=== PATIENT | male | born 1985 | race Two or more races ===

== ENCOUNTER 2017-10-14 13:18 | Inpatient (IN) | payer OTHER ==
--- NOTE | 2017-10-14 14:04 | PDOC ---
History of Present Illness - General Chief Complaint: Pain, Acute Stated Complaint: PAIN/ CHEST, ABD Time Seen by Provider: 10/14/17 14:04 History Source: Patient, Nail Kegger Used - History of Present Illness Initial Comments: 10/14/17 14:36 32 year old male with PMH etoh abuse (15 years) and asthma presents to ED complaining of upper abdominal pain since yesterday as well as vomiting x3 days. His pain is currently an 8/10, intermittent, alleviated by resting still, aggravated by food. He states his pain is associated with nausea, vomiting 15- 20 times, fever, chills, sweats, black stool, dysuria, hematuria. He denies constipation, diarrhea. He states he has been drinking 15 small bottle of vodka a day, for 15 days, with his last drink being 3 days ago. 10/14/17 15:34 Pt reassessed, after fluid resuscitation pt is no longer tachycardic. Past History - Past Medical History Allergies/Adverse Reactions: Allergies Allergy/AdvReac Type Severity Reaction Status Date / Time No Known Allergies Allergy Verified 10/14/17 13:27 Home Medications: Ambulatory Orders Vit No.129/Iron/Folic [ One Daily Tablet] 1 each PO DAILY #30 tablet 10/15/17 - Suicide/Smoking/Psychosocial Hx Smoking History: Never smoked Have you smoked in the past 12 months: No Information on smoking cessation initiated: No Hx Alcohol Use: No Drug/Substance Use Hx: No Review of Systems - Review of Systems Able to Perform ROS?: Yes Comments:: 10/14/17 14:39 ROS performed with patient via director of nuclear medicine. General: admits to fever, chills, night sweats. denies generalized weakness. HEENT: denies sore throat, rhinorrhea, ear pain. Heart: denies chest pain, palpitations, syncope, lower extremity swelling. Respiratory: denies shortness of breath, cough, sputum production, hematemesis. Abdomen: admits to abdominal pain, nausea, vomiting, dark tarry stool. denies diarrhea, constipation. : admits to dysuria and hematuria. denies urinary frequency. Musculoskeletal: denies joint pain, muscle pain, joint swelling. Neurological: denies headache, dizziness, numbness, tingling. Skin: denies rash, laceration, abrasion. *Physical Exam - Vital Signs Last Vital Signs Temp Pulse Resp BP Pulse Ox 97.5 F L 125 H 16 142/65 100 10/14/17 13:20 10/14/17 13:20 10/14/17 13:20 10/14/17 13:20 10/14/17 13:20 - Physical Exam Comments: 10/14/17 15:25 Appearance: appears in pain. HEENT: head is normocephalic, atraumatic. EOMI. PERRLA. Neck: supple without lymphadenopathy Heart: tachycardic. no murmurs, rubs or gallops. Lungs: clear to auscultation bilaterally. no crackles, rhonchi or wheezing. no stridor. Abdomen: soft. severe LUQ and RUQ pain upon palpation. mild rebound and guarding. normal bowel sounds. CVA tenderness negative. Extremities: Peripheral pulses intact. No lower extremity edema. Neurological: tremor to hands present. Alert. Oriented x3. CN 2-12 grossly intact. Moves all four extremities. Heart Score/ECG Review - ECG Impressions Comment:: 10/14/17 15:27 Rate 122. regular rhythm. right axis deviation. no acute ST changes. ED Treatment Course - LABORATORY CBC & Chemistry Diagram: 10/15/17 05:30 10/15/17 05:30 Medical Decision Making - Medical Decision Making 10/14/17 15:29 32 year old male who drinks vodka every day (15 small bottles a day) presents to ED with upper abdominal pain, nausea, vomiting, dark tarry stool. Severe abdominal tenderness. Slight tremor. Initial Vital Signs Temp Pulse Resp BP Pulse Ox 97.5 F L 125 H 16 142/65 100 10/14/17 13:20 10/14/17 13:20 10/14/17 13:20 10/14/17 13:20 10/14/17 13:20 Blood pressure stable. Afebrile. Tachycardic. Ativan given for potential ETOH withdrawal. Protonix given for potential GI bleed. Morphine given for pain. Zofran given for nausea. Normal saline given for tachycardia and dehydration. EKG performed in RME - tachycardic. no acute ST changes. I am concerned for pancreatitis, perforated peptic ulcer, cholecystitis or cholelithiasis, alfred hendrickson tears, GI bleed. Pending imaging: CT abdomen/pelvis, Flat and Upright abdominal XR, CXR. Pending labs and guiac. 10/14/17 15:41 Leukocytosis 12.9. Hgb and Hct within normal limits. Sodium 131 Potassium 3.2 10/14/17 16:43 CXR report - mid left basilar atelectasis. Abdomen XR - no free air. no intrabdominal pathology. 10/14/17 17:42 CT abdomen/pelvis report - The study is limited without the use of any contrast material. The lung bases are clear. There is a hiatal hernia in the retrocardiac space. The liver is normal in size. It is hypodense in texture consistent with diffuse fatty infiltration. No intrahepatic masses are identified. The spleen, pancreas, adrenal glands and kidneys demonstrate no significant abnormalities. There is a nonobstructing, 5 mm calculus within the lower pole of the left kidney. There is hyperdense bile within the gallbladder with no CT evidence of cholelithiasis. Ultrasound follow-up is recommended. There is no evidence of intra-abdominal or retroperitoneal lymphadenopathy or fluid collections. There is no evidence of pneumoperitoneum, bowel obstruction or intra-abdominal abscess. There is no CT evidence of acute appendicitis or diverticulitis. Examination of the pelvis demonstrates no evidence of pelvic masses, fluid collections or lymphadenopathy. There is no evidence of acute bony abnormalities. IMPRESSION: 1. Hiatal hernia. 2. Diffuse fatty infiltration of the liver. 3. Hyperdense bile within the gallbladder. Ultrasound follow-up recommended. 4. No acute pathology within the abdomen or pelvis. Please see above discussion. Reported By: Ino Rodriguez MD 10/14/17 9263 Guiac negative. Ruled out pancreatitis, perforated peptic ulcer. Ordered RUQ US per radiologist request. 10/14/17 19:21 RUQ US report - distended GB without cholelithiasis. fatty liver. Pt will be admitted for etoh withdrawal and PO intolerance. *DC/Admit/Observation/Transfer Diagnosis at time of Disposition: Abdominal pain, Alcohol withdrawal, Vomiting - Discharge Dispostion Condition at time of disposition: Improved Decision to Admit order: Yes - Prescriptions - Referrals - Patient Instructions - Post Discharge Activity
[2017-10-14] MEDS ORDERED: SODIUM CHLORIDE 1,000 ML IV STA (14:25)
[2017-10-14] MEDS ORDERED: ONDANSETRON 4 MG/2 ML VIAL IVPUSH ONE (14:30)
[2017-10-14] MEDS ORDERED: ONDANSETRON 4 MG/2 ML VIAL ONE (14:32)
[2017-10-14 15:12] LABS: ALBUMIN 3.8 g/dl (3.4-5.0); ANION GAP 15 (8-16); BLOOD UREA NITROGEN 17 mg/dL (7-18); CALCIUM 8.5 mg/dL (8.5-10.1); CHLORIDE 88 mmol/L (98-107); CO2 28 mmol/L (21-32); GLUCOSE,RANDOM 181 mg/dL (74-106); SODIUM 131 mmol/L (136-145)
[2017-10-14] MEDS ORDERED: morphine CARPU-JECT 4 MG/1 ML DISP.SYRIN IVPUSH ONE (15:15)
[2017-10-14 15:17] LABS: ALK PHOS 144 U/L (45-117); BILIRUBIN,TOTAL 1.6 mg/dL (0.2-1.0); CREATININE 1.1 mg/dL (0.7-1.3)
[2017-10-14 15:20] LABS: LIPASE 364 U/L (73-393); POTASSIUM 3.2 mmol/L (3.5-5.1)
[2017-10-14 15:21] LABS: SGOT/AST 56 U/L (15-37); SGPT/ALT 87 U/L (12-78)
[2017-10-14] MEDS ORDERED: morphine SULFATE 4 MG/ML VIAL ONE (15:22)
[2017-10-14] MEDS ORDERED: LORazepam 2 MG/ML SDV VIAL ONE (15:23)
[2017-10-14] MEDS ORDERED: PANTOPRAZOLE SODIUM 40 MG VIAL IVPUSH ONE (15:24)
[2017-10-14 15:29] LABS: BASO % 0.3 % (0-2.0); HEMATOCRIT 47.8 % (35.4-49); HEMOGLOBIN 16.9 GM/dL (11.7-16.9); LYMPH % 10.8 % (8-40); MCH 33.2 pg (25.7-33.7); MCHC 35.4 g/dl (32.0-35.9); MEAN CELL VOLUME 93.7 fl (80-96); MEAN PLT VOLUME 7.3 fl (7.5-11.1); MONO % 8.3 % (3.8-10.2); NEUT % 80.6 % (42.8-82.8); PLATELET COUNT 327 K/MM3 (134-434); RDW 14.4 % (11.9-15.9); WHITE BLOOD COUNT 12.9 K/mm3 (4.0-10.0)
[2017-10-14] MEDS ORDERED: PANTOPRAZOLE SODIUM 40 MG/100 ML BAG IVPB ONE (15:35)
[2017-10-14] MEDS ORDERED: FAMOTIDINE 20 MG/50 ML IVPB 20 MG/50 ML MG IVPB ONE (15:40)
--- NOTE | 2017-10-14 15:51 | PDOC ---
Attending Attestation - HPI HPI: 10/14/17 16:00 The patient is a 32-year-old male with past medical history asthma presents to the emergency department with abdominal pain. The patient reports intermittent pain to the L/R UQ that radiates to the anterior chest region, which is aggravated by food. The patient reports associated symptoms of nausea and 15-20 episodes of nonbilious-bloody emesis (for the past 3 days), melena, dysuria, and hematuria. Denies shortness of breath. Denies diarrhea or constipation. Denies hematemesis or hemoptysis. Denies fever, chills cough or a headache. Allergies: NKDA Social history: Denies history of smoking or recreational drug use. Reports the use of alcohol, states he takes 15 mini bottles of vodka daily, last intake was 3 days ago. Surgical history: None reported PCP: None reported - Medical Decision Making 10/14/17 16:00 Documentation prepared by Nayana Weiss, acting as er medical technician for Betsy Miranda MD. <Nayana Weiss - Last Filed: 10/14/17 16:00> - Resident Resident Name: Esperanza Leonard - ED Attending Attestation I have performed the following: I have examined & evaluated the patient, The case was reviewed & discussed with the resident, I agree w/resident's findings & plan, Exceptions are as noted - HPI HPI: 10/14/17 15:49 31-year-old male history of alcohol abuse and daily alcohol use last drink 3 days ago here today complaining of multiple episodes of nausea vomiting and diffuse upper abdominal pain. Patient states symptoms started on the night prior has had several episodes of nonbloody nonbilious vomitus ongoing for several days over the last 24 hours however he developed severe upper abdominal pain. Does report dark black stools but denies any hematemesis no fever no chills no history of prior abdominal surgeries no urinary complaints no moderating factors denies any chest pain or shortness of breath - Physicial Exam PE: 10/14/17 15:50Awake alert no distress dry mucous membranes lungs are clear bilaterally heart is regular tachycardic without any murmurs rubs or gallops abdomen is soft and and diffusely tender there is mild rebound and guarding mostly tender in the upper epigastrium and bilateral upper quadrants no CVA tenderness extremities are warm and well-perfused patient is noted to have a baseline resting tremor neuro-alert oriented 3 resting tremor good strength throughout moves all 4 extremities skin is diaphoretic and warm - Medical Decision Making 10/14/17 17:18 focused ED ultrsaound ruq indication: epigastric pain gallbladder scanned in two planes. no pericholecystic fluid, no wall edema. negative ravi's no stones. normal wall (<4mm) cbd 4.6 mm upper limits of normal. impression: normal gallbladder. <Betsy Miranda - Last Filed: 10/14/17 17:18> - Medical Decision Making 10/14/17 19:[address] Hampton who accepts the patient to service <Bernadette Thompson - Last Filed: 10/14/17 19:46>
[2017-10-14 17:39] LABS: URINE APPEARANCE CLEAR; URINE COLOR AMBER; URINE GLUCOSE (UA) 1+ (NEGATIVE); URINE KETONE 2+ (NEGATIVE); URINE LEUK ESTERASE NEGATIVE (NEGATIVE); URINE NITRITE NEGATIVE (NEGATIVE)
[2017-10-14 18:30] LABS: URINE PROTEIN 3+ (NEGATIVE)
[2017-10-14 18:45] LABS: URINE HYALINE CAST 6 /lpf; URINE MUCUS MANY
--- NOTE | 2017-10-14 21:24 | PN ---
Teaching Attending Note Name of Resident: Camron Og ATTENDING PHYSICIAN STATEMENT I saw and evaluated the patient. I reviewed the resident's note and discussed the case with the resident. I agree with the resident's findings and plan as documented. SUBJECTIVE: 32 y/o M presented to ED c/o both LLQ and RUQ abdominal pain 8/10 intensity. Patient reports prior episodes of similar pain which were milder and resolved on its own. Patient has h/o drinking 15 beers daily and vodka at times. Reports feeling anxious as the reason for his drinking. OBJECTIVE: GEN: A&Ox3 in mild distress, afebrile HEENT: NC, PERRLA, EOMI CVS: RRR Lungs: CTA, no wheezing Abd: Soft, nontender, BS+, no guarding or rebound. Ext: nl ROM, pulse 2+, no edema Psych: anxious CBCD WBC 12.9 K/mm3 (4.0-10.0) H 10/14/17 14:42 RBC 5.10 M/mm3 (4.00-5.60) 10/14/17 14:42 Hgb 16.9 GM/dL (11.7-16.9) 10/14/17 14:42 Hct 47.8 % (35.4-49) 10/14/17 14:42 MCV 93.7 fl (80-96) 10/14/17 14:42 MCHC 35.4 g/dl (32.0-35.9) 10/14/17 14:42 RDW 14.4 % (11.9-15.9) 10/14/17 14:42 Plt Count 327 K/MM3 (134-434) 10/14/17 14:42 MPV 7.3 fl (7.5-11.1) L 10/14/17 14:42 CMP Sodium 131 mmol/L (136-145) L 10/14/17 14:42 Potassium 3.2 mmol/L (3.5-5.1) L 10/14/17 14:42 Chloride 88 mmol/L (98-107) L 10/14/17 14:42 Carbon Dioxide 28 mmol/L (21-32) 10/14/17 14:42 Anion Gap 15 (8-16) 10/14/17 14:42 BUN 17 mg/dL (7-18) 10/14/17 14:42 Creatinine 1.1 mg/dL (0.7-1.3) 10/14/17 14:42 Creat Clearance w eGFR > 60 (>60) 10/14/17 14:42 Random Glucose 181 mg/dL (74-106) H 10/14/17 14:42 Calcium 8.5 mg/dL (8.5-10.1) 10/14/17 14:42 Total Bilirubin 1.6 mg/dL (0.2-1.0) H 10/14/17 14:42 AST 56 U/L (15-37) H 10/14/17 14:42 ALT 87 U/L (12-78) H 10/14/17 14:42 Alkaline Phosphatase 144 U/L (45-117) H 10/14/17 14:42 Total Protein 8.0 g/dl (6.4-8.2) 10/14/17 14:42 Albumin 3.8 g/dl (3.4-5.0) 10/14/17 14:42 ASSESSMENT AND PLAN: ETOH abuse with withdrawal- CIWA protocol, Banana bag, supplement daily with thiamine, folate and MVT. Librium and ativan prn. alcohol cessation counseling. Elevated LFTS secondary to acoholism vs viral hepatitis vs gallstone pancreatitis vs cholelithiasis USB Hepatitis panel A,B,C repeat labs in AM. Anxiety d/o- psych consult DVT prophylaxis SCD
[2017-10-15] MEDS ORDERED: LORazepam 2 MG/ML SDV VIAL IM ONE (01:31)
--- NOTE | 2017-10-15 01:54 | HP ---
CHIEF COMPLAINT: abdominal pain, vomiting PCP: HISTORY OF PRESENT ILLNESS: 32 y/o male with PMH ETOH abuse for past 15 years, and childhood asthma presents with complaint of RUQ and LUQ abdominal pain, for the past 3 days. The pain is described as a nonradiating dull ache that is spasmodic with waxing/ waning course. It is associated with nausea and vomiting of approx 20 episodes since last night. Vomiting is described as billious with yellow color, non bloody. He has not been able to tolarate PO intake for past three days. For palliation, he has attempted to drink 3 bottles of Gatorade (?20oz each) within the course of an hour, which he immediately threw up. Admits to drinking approx 12 beers a day for past 15 years. States he feels anxiety and the alcohol helps "anesthetize" him. Over past week he notes the beer does not provide desired effect, and has switched to approx 700mL of vodka per day. Admits subjective fevers, chills, hematuria, dysuria, melanotic stools. Denies seizures, hallucinations, tremors, shortness of breath, chest pain, palpitations, diarrhea , constipation. ER course was notable for: (1) IVNS, Pantoprazole, Famotidine, Zofran, Morphine, Ativan (2) EKG, CXR, abdominal xray, CT abdomen/ pelvis, gallbladder U/S (3) FOBT Recent Travel: PAST MEDICAL HISTORY: PAST SURGICAL HISTORY: Social History: Smoking: quit 1 year ago. admits 4-5 cigarettes a day for to years Alcohol: admits, past 15 years Drugs: denies Family History: Allergies NKDA No Known Allergies Allergy (Verified 10/14/17 13:27) HOME MEDICATIONS: Home Medications Medication Instructions Recorded NK [No Known Home Medication] 10/14/17 REVIEW OF SYSTEMS As per HPI PHYSICAL EXAMINATION Vital Signs - 24 hr 10/14/17 10/14/17 10/14/17 13:20 14:00 15:10 Temperature 97.5 F L Pulse Rate 125 H Pulse Rate [ 103 H Apical] Respiratory 16 Rate Blood Pressure 142/65 Blood Pressure [Right Arm] O2 Sat by Pulse 100 100 Oximetry (%) 10/14/17 10/14/17 10/14/17 15:32 19:39 21:51 Temperature 98.1 F 98.6 F Pulse Rate Pulse Rate [ 92 H 83 70 Apical] Respiratory 18 20 16 Rate Blood Pressure Blood Pressure 157/89 157/88 137/89 [Right Arm] O2 Sat by Pulse 100 97 96 Oximetry (%) 10/14/17 22:21 Temperature 98.6 F Pulse Rate Pulse Rate [ 70 Apical] Respiratory 16 Rate Blood Pressure Blood Pressure 137/89 [Right Arm] O2 Sat by Pulse 96 Oximetry (%) GENERAL: Awake, alert, and fully oriented, in no mild distress. HEAD: Normal with no signs of trauma. EYES: Pupils equal, round and reactive to light, extraocular movements intact, conjunctiva injected b/l. EARS, NOSE, THROAT: Oropharynx clear without exudates. Dry mucous membranes. NECK: Normal range of motion, supple without lymphadenopathy. LUNGS: Breath sounds equal, clear to auscultation bilaterally. No wheezes, and no crackles. HEART: Regular rate and rhythm, normal S1 and S2 without murmur, rub or gallop. ABDOMEN: Tender to palpation RUQ and LUQ, hepatomegaly palpated 3cm below costal margin, hyopactive bowel sounds X4 quadrants, some guarding, no rebound. EXTREMITIES: 2+ pulses, warm, well-perfused. No peripheral edema. 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: Cranial nerves II-XII intact. Normal speech. Strength 5/ upper extremities, lower extremities. Sensation intact B/L upper and lower extremities. No tremors. PSYCHIATRIC: Cooperative. SKIN: Warm, dry, normal turgor. Laboratory Results - last 24 hr 10/14/17 10/14/17 10/14/17 14:42 14:42 17:11 WBC 12.9 H RBC 5.10 Hgb 16.9 Hct 47.8 MCV 93.7 MCH 33.2 MCHC 35.4 RDW 14.4 Plt Count 327 MPV 7.3 L Absolute Neuts (auto) 10.4 Neutrophils % 80.6 Lymphocytes % 10.8 Monocytes % 8.3 Eosinophils % 0.0 Basophils % 0.3 Nucleated RBC % 0 Sodium 131 L Potassium 3.2 L Chloride 88 L Carbon Dioxide 28 Anion Gap 15 BUN 17 Creatinine 1.1 Creat Clearance w eGFR > 60 Random Glucose 181 H Calcium 8.5 Total Bilirubin 1.6 H AST 56 H ALT 87 H Alkaline Phosphatase 144 H Total Protein 8.0 Albumin 3.8 Lipase 364 Urine Color Lazara Urine Appearance Clear Urine pH 6.0 Ur Specific Palmer 1.037 H Urine Protein 3+ H Urine Glucose (UA) 1+ H Urine Ketones 2+ H Urine Blood Negative Urine Nitrite Negative Urine Bilirubin 2.0 Urine Urobilinogen 2.0 Ur Leukocyte Esterase Negative Urine WBC (Auto) 3 Urine RBC (Auto) 6 Hyaline Casts 6 Urine Mucus Many Stool Occult Blood 10/14/17 17:14 WBC RBC Hgb Hct MCV MCH MCHC RDW Plt Count MPV Absolute Neuts (auto) Neutrophils % Lymphocytes % Monocytes % Eosinophils % Basophils % Nucleated RBC % Sodium Potassium Chloride Carbon Dioxide Anion Gap BUN Creatinine Creat Clearance w eGFR Random Glucose Calcium Total Bilirubin AST ALT Alkaline Phosphatase Total Protein Albumin Lipase Urine Color Urine Appearance Urine pH Ur Specific Palmer Urine Protein Urine Glucose (UA) Urine Ketones Urine Blood Urine Nitrite Urine Bilirubin Urine Urobilinogen Ur Leukocyte Esterase Urine WBC (Auto) Urine RBC (Auto) Hyaline Casts Urine Mucus Stool Occult Blood Negative ASSESSMENT/PLAN: 32 y/o male with PMH 15 years ETOH abuse presents with 3 days of abdominal pain , nausea, and vomiting. ETOH abuse -Ativan for withdrawal/ agitation PRN -Banana bag -Fall precautions Abdominal pain -Abdominal xray showed no free air under diaphragm, no intrabdominal pathology -CT abdomen/ pelvis showed hiatal hernia, fatty liver, -Gallbladder US showed hepatomegaly, distended gallbladder without cholecystitis , -Lipase 364 -Start clear liquids, advance as tolerated -Zofran PRN Hyponatremia, Hypokalemia, Hypochloremia -Likely secondary to beer potomania vs cation wasting secondary to excessive alcohol vs. vomiting -Trend electrolytes Melanotic stools -FOBT negative -Hb 16.9/ Hct 47.8 -Consider outpatient GI follow up FEN -IVNS with folate, thiamine, and multivitamins -Will trend electrolytes -Clear diet, advance as tolerated Prophylaxis- Heparin 5000units subq TID Advance directives: Full code Case discussed with logistics operations manager attending. Visit type - Emergency Visit Emergency Visit: Yes ED Registration Date: 10/14/17 Care time: The patient presented to the Emergency Department on the above date and was hospitalized for further evaluation of their emergent condition. - New Patient This patient is new to me today: Yes Date on this admission: 10/15/17 - Critical Care Critical Care patient: No Hospitalist Screening - Colonoscopy Questionnaire Colonoscopy Questionnaire: Colonoscopy Questionnaire - Patient: 50 - 75 years old and never had a screening colonoscopy: Unknown History of colon or rectal polyps, or CA: Unknown History of IBD, Crohn's disease or UC: Unknown History of abdominal radiation therapy as a child: Unknown - Relative: 1 with colon or rectal CA, or polyps at age 60 or younger: Unknown Colon or rectal CA diagnosed at age 45 or younger: Unknown Multiple relatives with colon or rectal CA: Unknown - Outcome: Screening Result: Negative Screen
[2017-10-15] MEDS ORDERED: FOLIC ACID INJECTION - 1 MG, THIAMINE HCL 100 MG, MULTIVIT INJECTION ADULT 10 ML in SOD... IVPB ONE (02:30)
[2017-10-15] MEDS ORDERED: ONDANSETRON 4 MG/2 ML VIAL IVPUSH PRN (04:10)
[2017-10-15] MEDS ORDERED: HEPARIN NA (PORCINE) 5,000 UNITS/ML 1ML VIAL SQ SCH (06:00)
[2017-10-15 06:47] LABS: BASO % 0.5 % (0-2.0); EOS % 0.1 % (0-4.5); HEMATOCRIT 41.6 % (35.4-49); HEMOGLOBIN 14.9 GM/dL (11.7-16.9); LYMPH % 17.8 % (8-40); MCH 33.8 pg (25.7-33.7); MCHC 35.9 g/dl (32.0-35.9); MEAN CELL VOLUME 94.1 fl (80-96); MEAN PLT VOLUME 6.9 fl (7.5-11.1); MONO % 10.2 % (3.8-10.2); NEUT % 71.4 % (42.8-82.8); PLATELET COUNT 288 K/MM3 (134-434); RBC 4.42 M/mm3 (4.00-5.60); RDW 13.8 % (11.9-15.9); WHITE BLOOD COUNT 10.4 K/mm3 (4.0-10.0)
[2017-10-15 06:59] LABS: ALBUMIN 3.4 g/dl (3.4-5.0); ANION GAP 10 (8-16); BLOOD UREA NITROGEN 13 mg/dL (7-18); CALCIUM 8.4 mg/dL (8.5-10.1); CHLORIDE 94 mmol/L (98-107); CO2 32 mmol/L (21-32); GLUCOSE,RANDOM 94 mg/dL (74-106); MAGNESIUM 2.3 mg/dL (1.8-2.4); SODIUM 136 mmol/L (136-145)
[2017-10-15 07:03] LABS: ALK PHOS 120 U/L (45-117); BILIRUBIN,TOTAL 2.1 mg/dL (0.2-1.0); CREATININE 0.8 mg/dL (0.7-1.3); PHOSPHOROUS 2.5 mg/dL (2.5-4.9); SGOT/AST 75 U/L (15-37); SGPT/ALT 40 U/L (12-78); TOT PROT 7.1 g/dl (6.4-8.2)
[2017-10-15] MEDS: chlordiazePOXIDE HCL 25 MG CAPSULE PO SCH ×2 (08:00→11:41)
[2017-10-15] MEDS ORDERED: PNEUMOC 13-VAL CONJ-DIP CRM/PF 0.5 ML DISP.SYRIN IM ONE (08:00)
[2017-10-15] MEDS ORDERED: chlordiazePOXIDE HCL 25 MG CAPSULE PO PRN (08:02)
[2017-10-15] MEDS ORDERED: PNEUMOCOCCAL 23 VACCINE 0.5 ML VIAL IM ONE (09:00)
[2017-10-15] MEDS ORDERED: POTASSIUM CHLORIDE 20 MEQ in SODIUM CHLORIDE 250 ML IVPB ONE (09:00)
--- NOTE | 2017-10-15 14:32 | EKG ---
Test Reason : Blood Pressure : / mmHG Vent. Rate : 106 BPM Atrial Rate : 106 BPM P-R Int : 132 ms QRS Dur : 082 ms QT Int : 402 ms P-R-T Axes : -05 093 050 degrees QTc Int : 533 ms SINUS TACHYCARDIA RIGHTWARD AXIS NONSPECIFIC ST ABNORMALITY PROLONGED QT ABNORMAL ECG NO PREVIOUS ECGS AVAILABLE Confirmed by SALENA SHANNON MD ([id number]) on 10/15/2017 2:31:35 PM Referred By: Confirmed By:SALENA SHANNON MD
--- NOTE | 2017-10-15 15:58 | DS ---
Physical Exam: SUBJECTIVE: Patient seen and examined. No acute events overnight. No complaints. Pt. endorses that the belly pain is better than yesterday. Denies fever, chills, palpitations, chest pain and SOB. Pt. refused going to rehabilitation for alcohol abuse. OBJECTIVE: Vital Signs Period Temp Pulse Resp BP Sys/[place] Pulse Ox Last 24 Hr 98.1 F-99.2 F 67-84 16-20 124-157/79-89 95-97 PHYSICAL EXAM GENERAL: The patient is awake, alert, and fully oriented, in no acute distress. LUNGS: Breath sounds equal, clear to auscultation bilaterally, no wheezes, no crackles, no accessory muscle use. HEART: Regular rate and rhythm, S1, S2 without murmur ABDOMEN: Soft, LUQ and LMQ tenderness, nondistended, normoactive bowel sounds EXTREMITIES: warm, well-perfused, no edema, no calf tenderness. PSYCH: Normal mood, normal affect. LABS Laboratory Results - last 24 hr 10/14/17 10/14/17 10/15/17 17:11 17:14 05:30 WBC 10.4 H RBC 4.42 Hgb 14.9 Hct 41.6 MCV 94.1 MCH 33.8 H MCHC 35.9 RDW 13.8 Plt Count 288 MPV 6.9 L Absolute Neuts (auto) 7.4 Neutrophils % 71.4 Lymphocytes % 17.8 D Monocytes % 10.2 Eosinophils % 0.1 D Basophils % 0.5 Nucleated RBC % 0 Sodium Potassium Chloride Carbon Dioxide Anion Gap BUN Creatinine Creat Clearance w eGFR Random Glucose Calcium Phosphorus Magnesium Total Bilirubin AST ALT Alkaline Phosphatase Total Protein Albumin Urine Color Lazara Urine Appearance Clear Urine pH 6.0 Ur Specific [place] 1.037 H Urine Protein 3+ H Urine Glucose (UA) 1+ H Urine Ketones 2+ H Urine Blood Negative Urine Nitrite Negative Urine Bilirubin 2.0 Urine Urobilinogen 2.0 Ur Leukocyte Esterase Negative Urine WBC (Auto) 3 Urine RBC (Auto) 6 Hyaline Casts 6 Urine Mucus Many Stool Occult Blood Negative 10/15/17 05:30 WBC RBC Hgb Hct MCV MCH MCHC RDW Plt Count MPV Absolute Neuts (auto) Neutrophils % Lymphocytes % Monocytes % Eosinophils % Basophils % Nucleated RBC % Sodium 136 Potassium 3.0 L Chloride 94 L Carbon Dioxide 32 Anion Gap 10 BUN 13 Creatinine 0.8 Creat Clearance w eGFR > 60 Random Glucose 94 D Calcium 8.4 L Phosphorus 2.5 Magnesium 2.3 Total Bilirubin 2.1 H AST 75 H D ALT 40 D Alkaline Phosphatase 120 H D Total Protein 7.1 Albumin 3.4 Urine Color Urine Appearance Urine pH Ur Specific [place] Urine Protein Urine Glucose (UA) Urine Ketones Urine Blood Urine Nitrite Urine Bilirubin Urine Urobilinogen Ur Leukocyte Esterase Urine WBC (Auto) Urine RBC (Auto) Hyaline Casts Urine Mucus Stool Occult Blood HOSPITAL COURSE: Date of Admission:10/14/17 Date of Discharge: 10/15/17 Pre-Hospital: 32 y/o male with PMH ETOH abuse for past 15 years, and childhood asthma presents with complaint of RUQ and LUQ abdominal pain, for the past 3 days. The pain is described as a nonradiating dull ache that is spasmodic with waxing/ waning course. It is associated with nausea and vomiting of approx 20 episodes since last night. Vomiting is described as billious with yellow color, non bloody. He has not been able to tolarate PO intake for past three days. For palliation, he has attempted to drink 3 bottles of Gatorade (?20oz each) within the course of an hour, which he immediately threw up. Admits to drinking approx 12 beers a day for past 15 years. States he feels anxiety and the alcohol helps "anesthetize" him. Over past week he notes the beer does not provide desired effect, and has switched to approx 700mL of vodka per day. Admits subjective fevers, chills, hematuria, dysuria, melanotic stools. Denies seizures, hallucinations, tremors, shortness of breath, chest pain, palpitations, diarrhea , constipation. Hospital: Pt. was observed for abdominal pain. Pt. received EKG(negative for pathology), CT-Abdomen and Pelvis(negative for pancreatitis and cholecystitis), Gallbladder US( negative for bile duct obstruction but positive for gallstones and fatty liver), CXR and abdominal Xray(negative for free air under the diaphragm). Pt. was given Librium and Ativan and observed off Librium and Ativan without sign of detox. Pt. was given fluids and found to be medically cleared for discharge. Hospital course was discussed and agreed upon with Pt. Minutes to complete discharge: 33 Discharge Summary Reason For Visit: ALCOHOL WITHDRAWAL SYNDROME Current Active Problems Abdominal pain (Acute) EtOH dependence (Acute) Hypokalemia (Acute) Transaminitis (Acute) Condition: Improved - Instructions Diet, Activity, Other Instructions: You were admitted because of your belly pain. Your belly pain is likely from your drinking. If you continue drinking you are at increased risk for inflammation of your pancreas, cancer of the stomach, pancreas or intestines, heart disease, brain disease and . It is likely that some damage has already occurred. We strongly recommend you stop drinking alcohol. You may use an outpatient support group such as [facility] to help. We have provided you a referral to one. We are starting you on a daily multivitamin. Please follow up with your primary care doctor in 1 week. If you do not have a primary care doctor we have given you a referral to our clinic. Please return to the ER if you experience chest pain, abdominal pain, tremors, or dizziness. Referrals: Thai Charles RES [Resident] - 1 Week Leah Marte MD [Staff Physician] - 1 Week Disposition: HOME - Home Medications Comprehensive Discharge Medication List: Ambulatory Orders Vit No.129/Iron/Folic [ One Daily Tablet] 1 each PO DAILY #30 tablet 10/15/17 This patient is new to me today: No Emergency Visit: Yes ED Registration Date: 10/14/17 Care time: The patient presented to the Emergency Department on the above date and was hospitalized for further evaluation of their emergent condition. Critical Care patient: No - Discharge Referral Referred to [facility] No
--- NOTE | 2017-10-15 16:10 | PN ---
Teaching Attending Note Name of Resident: Thai Charles ATTENDING PHYSICIAN STATEMENT I saw and evaluated the patient. I reviewed the resident's note and discussed the case with the resident. I agree with the resident's findings and plan as documented. SUBJECTIVE:asymptomatic. states abdominal pain has resolved, was initially in epigastric area not radiating. tolerating diet. has slight MÉNDEZ. denies CP, SOB< fever, chills, N/V/C/D, hallucinations OBJECTIVE: Last Vital Signs Temp Pulse Resp BP Pulse Ox 99.2 F 80 18 141/84 95 10/15/17 00:00 10/15/17 09:04 10/15/17 09:04 10/15/17 09:04 10/15/17 00:00 General NAD CV S1 S2 RRR no murmur/rub/gallop Lungs CTA B/L no wheezing/rales/rhonchi Abdomen soft NT/ND no rebound or guarding. normoactive BS no hepatomegaly Extremities no tremors ASSESSMENT AND PLAN: 32yo M with PMH continuous ETOH abuse presented with abdominal pain 1. Abdominal pain- likely gastritis due to ETOH use. lipase WNL. Ct abdomen/ pelvis with no acute pathology. U/s showing cholelithasis but no signs of acute cholecystitis. tolerating diet. counselled on ETOH cessation 2. hypokalemia- Kcl 3. Hyponatremia- dehydration. now resolved. d/c IVF 4. Leukcytosis- likely reactive. no s&s of infection. trending down. no indication for abx 5. Transaminitis- due to ETOH. trending down. imaging as above. hepatitis panel. 6. Continuous ETOH abuse- CIWA 3. last drink was 3 days ago. will d/c librium at this time. not interested in inpatient rehab at this time. counselled on risks assoc with continued ETOH use. suggested AA meetings. vitamins on discharge 7. d/c home with encouragement to cease drinking and to f/u in clinic
[2017-10-15 17:30] VITALS: BP 141/93; PULSE 83; TEMP 98.3
[2017-10-16] MEDS ORDERED: chlordiazePOXIDE HCL 25 MG CAPSULE PO SCH (05:00)
[2017-10-16 14:15] LABS: HBSAG SCREEN Negative (Negative); HEP A AB, IGM Negative (Negative); HEP B CORE AB, TOT Negative (Negative)
[2017-10-17] MEDS ORDERED: chlordiazePOXIDE 5 MG CAPSULE PO SCH (05:00)
== END 2017-10-15 18:50 | disposition home or self-care (01) | DRG 241 ==
LOC: JER 13:18 → JERBED 19:38 → J4W 10-15 00:27
PROVIDERS: ADMIT Internal Medicine; ATTEND Internal Medicine
DX: K29.20 Alcoholic gastritis without bleeding (principal); K70.0 Alcoholic fatty liver; E87.1 Hypo-osmolality and hyponatremia; E87.8 Other disorders of electrolyte and fluid balance, not elsewhere classified; F10.230 Alcohol dependence with withdrawal, uncomplicated; E87.6 Hypokalemia; J45.909 Unspecified asthma, uncomplicated; E86.0 Dehydration; K82.8 Other specified diseases of gallbladder; Z87.891 Personal history of nicotine dependence; K92.1 Melena; K44.9 Diaphragmatic hernia without obstruction or gangrene; R74.0 Nonspecific elevation of levels of transaminase and lactic acid dehydrogenase [LDH]; D72.829 Elevated white blood cell count, unspecified
CPT/HCPCS: 36415; 71046-TC-FY; 74019-TC-FY; 74176-TC; 76705-TC; 80053; 81003; 81015; 82272; 83690; 83735; 84100; 85025; 86704; 86706; 86708; 87340; 87522; 90732; 93005; 93010; 99283-25; G0009; J1644; J7030

== ENCOUNTER 2018-05-08 13:15 | Inpatient (IN) | payer OTHER ==
--- NOTE | 2018-05-08 14:08 | PDOC ---
History of Present Illness - History of Present Illness Initial Comments: 32 year old male with PMH of ETOH abuse for past 15 years, and childhood asthma presents with complaint of urinary hesitation, LUQ, LLQ pain and nausea/ vomiting for the past two days. He states it was sudden onset and has been a sharp and pressure like pain that is worse with food which causes him to vomit. He also admits to inability to urinate over the past 8 hours despite drinking plenty of water. HE was admitted to our faculty for very similar symptoms one month prior with negative abdominal CT scans and ultrasounds, ultimately his symptoms were attributed to EtOH withdrawal because he admitted to 15 beers daily for 15+ years. He states that he has been decreasing his drinking and now only drinks one to two drinks every other day. Denies any fevers, chills, diarrhea, chest pain, SOB, or other symptoms. <Joaquin Mckeon - Last Filed: 05/08/18 20:44> <Sara Odell - Last Filed: 05/08/18 22:30> - General Chief Complaint: Pain Stated Complaint: PAIN Time Seen by Provider: 05/08/18 14:08 Past History - Past Medical History COPD: No - Suicide/Smoking/Psychosocial Hx Smoking History: Never smoked Have you smoked in the past 12 months: No Hx Alcohol Use: No Drug/Substance Use Hx: No <Joaquin Mckeon - Last Filed: 05/08/18 20:44> <aSra Odell - Last Filed: 05/08/18 22:30> - Past Medical History Allergies/Adverse Reactions: Allergies Allergy/AdvReac Type Severity Reaction Status Date / Time No Known Allergies Allergy Verified 05/08/18 13:32 Home Medications: Ambulatory Orders NK [No Known Home Medication] 05/08/18 Review of Systems - Review of Systems Constitutional: No: Chills, Diaphoresis, Fever, Loss of Appetite Respiratory: No: Cough, Orthopnea, Shortness of Breath Cardiac (ROS): No: Chest Pain, Edema, Irregular Heart Rate ABD/GI: Yes: Nausea, Poor Fluid Intake, Vomiting. No: Diarrhea, Poor Appetite : No: Dysuria, Discharge <Joaquin Mckeon - Last Filed: 05/08/18 20:44> *Physical Exam - Vital Signs Last Vital Signs Temp Pulse Resp BP Pulse Ox 97.2 F L 104 H 20 139/106 H 99 05/08/18 13:30 05/08/18 13:30 05/08/18 13:30 05/08/18 13:30 05/08/18 13:30 - Physical Exam General Appearance: Yes: Nourished, Appropriately Dressed. No: Apparent Distress HEENT: positive: EOMI, ADRIÁN, Normal ENT Inspection, Normal Voice Neck: positive: Trachea midline, Normal Thyroid, Supple. negative: Tender, Rigid Respiratory/Chest: positive: Lungs Clear, Normal Breath Sounds. negative: Chest Tender, Respiratory Distress, Accessory Muscle Use Cardiovascular: positive: Regular Rhythm, Regular Rate Gastrointestinal/Abdominal: positive: Normal Bowel Sounds, Tender (Left upper, Right upper, and left lower quadrant ttp. No gauarding or rebound), Flat, Soft Lymphatic: negative: Adenopathy, Tenderness Musculoskeletal: positive: Normal Inspection. negative: Decreased Range of Motion Extremity: positive: Normal Capillary Refill, Normal Inspection, Normal Range of Motion. negative: Tender Integumentary: positive: Normal Color, Warm Neurologic: positive: Fully Oriented, Alert, Normal Mood/Affect, Normal Response , Motor Strength 5/5 <Joaquin Mckeon - Last Filed: 05/08/18 20:44> - Vital Signs Last Vital Signs Temp Pulse Resp BP Pulse Ox 98.7 F 77 18 126/78 98 05/08/18 19:12 05/08/18 19:12 05/08/18 19:12 05/08/18 19:12 05/08/18 19:12 <Sara Odell - Last Filed: 05/08/18 22:30> Moderate Sedation - Procedure Monitoring Vital Signs: Procedure Monitoring Vital Signs Temperature 97.2 F L 05/08/18 13:30 Pulse Rate 104 H 05/08/18 13:30 Respiratory Rate 20 05/08/18 13:30 Blood Pressure 139/106 H 05/08/18 13:30 O2 Sat by Pulse Oximetry (%) 99 05/08/18 13:30 <Joaquin Mckoen - Last Filed: 05/08/18 20:44> - Procedure Monitoring Vital Signs: Procedure Monitoring Vital Signs Temperature 98.7 F 05/08/18 19:12 Pulse Rate 77 05/08/18 19:12 Respiratory Rate 18 05/08/18 19:12 Blood Pressure 126/78 05/08/18 19:12 O2 Sat by Pulse Oximetry (%) 98 05/08/18 19:12 <Sara Odell - Last Filed: 05/08/18 22:30> ED Treatment Course - LABORATORY CBC & Chemistry Diagram: 05/08/18 14:48 05/08/18 14:48 <LindaJoaquin - Last Filed: 05/08/18 20:44> - LABORATORY CBC & Chemistry Diagram: 05/08/18 14:48 05/08/18 14:48 - ADDITIONAL ORDERS Additional order review: Laboratory Results 05/08/18 05/08/18 05/08/18 20:38 14:48 14:48 PT with INR INR Sodium 133 L Potassium 3.3 L Chloride 92 L Carbon Dioxide 28 Anion Gap 13 BUN 10 Creatinine 0.9 Creat Clearance w eGFR > 60 Random Glucose 127 H Calcium 8.3 L Total Bilirubin 3.8 H Direct Bilirubin 0.8 H AST 305 H ALT 132 H Alkaline Phosphatase 172 H Total Protein 7.7 Albumin 3.7 Total Amylase 119 H Lipase 374 Urine Color Urine Appearance Urine pH Ur Specific [place] Urine Protein Urine Glucose (UA) Urine Ketones Urine Blood Urine Nitrite Urine Bilirubin Urine Urobilinogen Ur Leukocyte Esterase Urine WBC (Auto) Urine RBC (Auto) Hyaline Casts Urine Mucus Alcohol, Quantitative 148.0 H Blood Type O POSITIVE Antibody Screen Negative 05/08/18 05/08/18 14:48 14:48 PT with INR 11.80 INR 1.00 Sodium Potassium Chloride Carbon Dioxide Anion Gap BUN Creatinine Creat Clearance w eGFR Random Glucose Calcium Total Bilirubin Direct Bilirubin AST ALT Alkaline Phosphatase Total Protein Albumin Total Amylase Lipase Urine Color Lazara Urine Appearance Slcloudy Urine pH 6.0 Ur Specific [place] 1.032 Urine Protein 2+ H Urine Glucose (UA) Negative Urine Ketones Trace H Urine Blood Negative Urine Nitrite Negative Urine Bilirubin 2.0 Urine Urobilinogen 4.0 e.u/dl Ur Leukocyte Esterase Negative Urine WBC (Auto) 2 Urine RBC (Auto) 2 Hyaline Casts 2 Urine Mucus Many Alcohol, Quantitative Blood Type Antibody Screen 05/08/18 14:48 RBC 5.19 MCV 94.4 MCHC 35.5 RDW 13.6 MPV 7.1 L Neutrophils % 83.7 H Lymphocytes % 8.0 D Monocytes % 8.1 Eosinophils % 0.0 D Basophils % 0.2 - Medications Given in the ED: ED Medications Discontinued Medications Generic Name Dose Route Start Last Admin Trade Name Diana PRN Reason Stop Dose Admin Diazepam 10 mg 05/08/18 16:35 05/08/18 16:52 Valium - PO 05/08/18 16:36 10 mg ONCE ONE Administration Morphine Sulfate 2 mg 05/08/18 14:26 05/08/18 14:50 Morphine Injection - IVPUSH 05/08/18 14:27 2 mg ONCE ONE Administration Potassium Chloride 40 meq 05/08/18 15:32 05/08/18 16:00 K-Dur - PO 05/08/18 15:33 40 meq ONCE ONE Administration Potassium Chloride 40 meq 05/08/18 21:48 05/08/18 22:28 K-Dur - PO 05/08/18 21:49 40 meq ONCE ONE Administration Sodium Chloride 1,000 ml 05/08/18 15:20 05/08/18 15:21 Normal Saline - IV 05/08/18 15:21 1,000 ml ONCE ONE Administration <Sara Odell - Last Filed: 05/08/18 22:30> Medical Decision Making - Medical Decision Making 32 year old alcoholic male presenting with two days of nausea, vomiting, abdominal pain in the LLQ, LUQ< and RUQ. Patient was also tachycardic and hypertensive on admission concerning for EtOH withdrawal. Admits to last drink last night and states he bal drinks one or two drinks per day since his last admission for EtOH withdrawal. Liver enzymes and t-bili all elevated showing worsening hepatic diseases with EtOH liver pattern. RUQ US and KUB demonstrating large lith in the liver. He was given versed with good resolution of withdrawal symptoms in the interim. Patient signed out to Dr. Alcala for further workup. 05/08/18 20:44 <Joaquin Mckeon - Last Filed: 05/08/18 20:44> *DC/Admit/Observation/Transfer <Joaquin Mckeon - Last Filed: 05/08/18 20:44> - Discharge Dispostion Decision to Admit order: Yes <Sara Odell - Last Filed: 05/08/18 22:30> Diagnosis at time of Disposition: Transaminitis Alcohol withdrawal Qualifiers: Complication of substance-induced condition: uncomplicated Qualified Code(s): F10.230 - Alcohol dependence with withdrawal, uncomplicated - Discharge Dispostion Condition at time of disposition: Guarded
[2018-05-08] MEDS ORDERED: morphine CARPU-JECT 2 MG/1 ML DISP.SYRIN IVPUSH ONE (14:26)
[2018-05-08] MEDS ORDERED: MORPHINE SULFATE 2 MG/ML VIAL ONE (14:45)
[2018-05-08] MEDS ORDERED: SODIUM CHLORIDE 0.9% 500 ML INFUS.BAG IV ONE (15:20)
[2018-05-08 15:23] LABS: URINE APPEARANCE SLCLOUDY; URINE COLOR AMBER; URINE GLUCOSE (UA) NEGATIVE (NEGATIVE); URINE KETONE TRACE (NEGATIVE); URINE LEUK ESTERASE NEGATIVE (NEGATIVE); URINE NITRITE NEGATIVE (NEGATIVE); URINE PROTEIN 2+ (NEGATIVE); URINE UROBILINOGEN 4.0 E.U/dl mg/dL (0.2-1.0)
[2018-05-08 15:27] LABS: PROTHROMBIN TIME (PATIENT) 11.8 SEC (9.7-13.0)
[2018-05-08 15:29] LABS: BASO % 0.2 % (0-2.0); HEMOGLOBIN 17.4 GM/dL (11.7-16.9); MCH 33.5 pg (25.7-33.7); MCHC 35.5 g/dl (32.0-35.9); MEAN CELL VOLUME 94.4 fl (80-96); MEAN PLT VOLUME 7.1 fl (7.5-11.1); MONO % 8.1 % (3.8-10.2); NEUT % 83.7 % (42.8-82.8); PLATELET COUNT 262 K/MM3 (134-434); RBC 5.19 M/mm3 (4.00-5.60); RDW 13.6 % (11.9-15.9); WHITE BLOOD COUNT 19.1 K/mm3 (4.0-10.0)
[2018-05-08 15:30] LABS: ALBUMIN 3.7 g/dl (3.4-5.0); ALK PHOS 172 U/L (45-117); ANION GAP 13 MMOL/L (8-16); BILIRUBIN,TOTAL 3.8 mg/dL (0.2-1); BLOOD UREA NITROGEN 10 mg/dL (7-18); CALCIUM 8.3 mg/dL (8.5-10.1); CHLORIDE 92 mmol/L (98-107); CO2 28 mmol/L (21-32); CREATININE 0.9 mg/dL (0.55-1.3); GLUCOSE,RANDOM 127 mg/dL (74-106); POTASSIUM 3.3 mmol/L (3.5-5.1); SGOT/AST 305 U/L (15-37); SGPT/ALT 132 U/L (13-61); SODIUM 133 mmol/L (136-145); TOT PROT 7.7 g/dl (6.4-8.2)
[2018-05-08] MEDS ORDERED: POTASSIUM CHLORIDE TABS 20 MEQ TABLET.ER (FP) PO ONE ×4 (15:32→22:15)
[2018-05-08 15:39] LABS: URINE HYALINE CAST 2 /lpf; URINE MUCUS MANY
--- NOTE | 2018-05-08 15:49 | PDOC ---
Attending Attestation - Medical Decision Making 05/08/18 19:30 Patient Name: RAMONITA ALBERTS THIS IS A PRELIMINARY REPORT FROM [facility] DATE OF SERVICE: 2018-05-08 17:10:44 IMAGES: 99 EXAM: Abdominal ultrasound complete REASON FOR EXAM: Upper abdominal pain COMPARISON: None. FINDINGS: There is mild hepatomegaly. There is hepatic steatosis. Visualized hepatic parenchyma is diffusely echogenic and mildly heterogeneous. The liver measures 18.8 cm in length. There is a shadowing likely calcified region in the right lower liver measuring 0.9 x 0.6 x 0.4 cm of undetermined significance. The gallbladder is distended. There are no gallstones seen. The gallbladder wall appears normal in thickness. Negative sonographic Solis's sign. The common bile duct is normal in diameter. There is no hydronephrosis. Spleen measures 8.2 x 8.4 x 3.3 cm. Splenic parenchyma is homogeneous. The pancreas is not well-visualized on this examination. THIS DOCUMENT HAS BEEN ELECTRONICALLY SIGNED <Kori Morataya - Last Filed: 05/08/18 19:30> - Resident Resident Name: Joaquin Mckeon - ED Attending Attestation I have performed the following: I have examined & evaluated the patient, The case was reviewed & discussed with the resident, I agree w/resident's findings & plan - HPI HPI: 05/08/18 19:17 32 y/o male with PMH ETOH abuse for past 15 years, and childhood asthma presenting with left sided abdominal painand nausea/ vomiting for the past two days. He states it was sudden onset and has been a sharp and pressure like pain that is worse with food which causes him to vomit. He also admits to inability to urinate over the past 8 hours despite drinking plenty of water. 05/08/18 19:17 - Physicial Exam PE: 05/08/18 19:18 NAD, PERRL, EOMI, dry membranes, nl conjunctiva, anicteric; neck supple. lungs clear, tachycardic, abdomen soft +diffusely tender; no RUQ tenderness or solis' s. no rebound or guarding. BARBOSA x4, no focal neuro deficits. No peripheral edema. normal color for ethnicity, WWP. - Medical Decision Making 05/08/18 19:19 See HPI for details DDx alcohol w/d, biliary colic, choledocholithiasis, alcohol intox. dehydration. electrolyte/metabolic derangements, infection, renal colic/ obstructed stone. UTI, pancreatitis, hepatitis. Vital signs reviewed, +tachycardic. Prior notes reviewed, including admissions, discharges and consultations. laboratory results and imaging reviewed, basic labs and lytes wnl, notable for + leukocytosis of 19K, +amylase (nonspecific,) normal lipase. LFTs grossly elevated, with AST >ALT by 3X, with elevated t bili and ALP. considering biliary abnormality. RUQ sono pending. given analgesia, IVF and GI cocktail. valium for alcohol w/d, though levels elevated, he can w/d with a baseline elevated alcohol level - will continue to monitor for acute alcohol w/d. dispo: admit for alcohol w/d and worsening liver failure /transaminitis, high risk for decompensation. 05/08/18 22:31 <Sara Odell - Last Filed: 05/08/18 22:32>
[2018-05-08 15:54] LABS: AMYLASE 119 U/L (25-115); LIPASE 374 U/L (73-393)
[2018-05-08] MEDS ORDERED: diazePAM 5 MG TABLET PO ONE (16:35)
[2018-05-08] MEDS ORDERED: diazePAM 5 MG TABLET ONE (16:46)
--- NOTE | 2018-05-08 20:40 | PN ---
Teaching Attending Note Name of Resident: Simeon Jeffrey ATTENDING PHYSICIAN STATEMENT I saw and evaluated the patient. I reviewed the resident's note and discussed the case with the resident. I agree with the resident's findings and plan as documented. SUBJECTIVE: Patient is a 32 year old man with PMH of ETOH abuse for past 15 years, and childhood asthma presents with complaint of urinary hesitation, LUQ, LLQ pain and nausea/ vomiting for the past two days. He states it was sudden onset and has been a sharp and pressure like pain that is worse with food which causes him to vomit. He also admits to inability to urinate over the past 8 hours despite drinking plenty of water. He was admitted to our faculty for very similar symptoms one month prior with negative abdominal CT scans and ultrasounds, ultimately his symptoms were attributed to EtOH withdrawal because he admitted to 15 beers daily for 15+ years. He states that he has been decreasing his drinking and now only drinks one to two drinks every other day. Denies any fevers, chills, diarrhea, chest pain, SOB, or other symptoms. OBJECTIVE: Alert Vital Signs Period Temp Pulse Resp BP Sys/[place] Pulse Ox Last 24 Hr 97.2 F-98.7 F 77-104 18-20 126-139/78-106 98-99 HEENT: ++Jaundice, No eye redness or discharge, PERRLA, EOMI. Normocephalic, atraumatic. External ears are normal and hearing is grossly intact. No nasal discharge. Neck: Supple, nontender. No palpable adenopathy or thyromegaly. No JVD Chest: Good effort. Clear to auscultation and percussion. Heart: Regular. No S3, rub or murmur Abdomen: Distended, soft, diffuse tenderness and no HSM. No rebound or guarding. Normoactive bowel sounds. Ext: Peripheral pulses intact. No leg edema. Skin: Warm and dry. No petechiae, rash or ecchymosis. Neuro: Alert. Oriented x3. CN 2-12 grossly intact. Sensation grossly intact in all four extremities and DTR are symmetric. Home Medications Medication Instructions Recorded NK [No Known Home Medication] 05/08/18 Abnormal Lab Results 05/08/18 05/08/18 05/08/18 14:48 14:48 14:48 WBC 19.1 H Hgb 17.4 H MPV 7.1 L Absolute Neuts (auto) 16.0 H Neutrophils % 83.7 H Sodium 133 L Potassium 3.3 L Chloride 92 L Random Glucose 127 H Calcium 8.3 L Total Bilirubin 3.8 H AST 305 H ALT 132 H Alkaline Phosphatase 172 H Total Amylase 119 H Urine Protein 2+ H Urine Ketones Trace H Alcohol, Quantitative 148.0 H ASSESSMENT AND PLAN: 1. Alcohol abuse/Alcoholic Live Disease/Intoxication and Oliguria? - Patient had elevated LFTs in September 2017, and they are now worse - suggesting progression of ?alcoholic liver disease. Official report of abdominal sonogram is pending, but there is no hydronephrosis. Garcia concern is whether he has peritonitis vs alcoholic hepatitis. He is afebrile and not toxic looking. Will repeat CBC start , and do a diagnostic paracentesis if significant ascites is demonstrated. Will withhold antibiotics for now, treat with lactulose 30 mg q 4 hours and Rifaximin 550 mg q 12 hours. Hypokalemia likely due to urinary wasting and poor oral intake. Will check serum Mg+, phosphate and continue IV KCL promptly to preempt hepatic encephalopathy. Treat with banana bag and hydrate subsequently with ringers lactate to address oliguria. Oliguria is likely due to dehydration. Implement CIWA Ativan alcohol withdrawal protocol, fall and aspiration precautions. Treat with thiamine and folic acid and monitor electrolytes (Ca,Mg,K,P). Quote Clerk patient about abstaining from alcohol and refer to alcohol detox upon discharge. 2. DVT prophylaxis - Lovenox 40 mg SQ q 24 hours. 3. Advance directives - Full code
[2018-05-08] MEDS ORDERED: LACTULOSE 20 GM/30 ML UDC (FOR ORAL USE ONLY) PO PRN (21:26)
[2018-05-08] MEDS ORDERED: LACTATED RINGERS SOLUTION 1,000 ML/1,000 ML INFUS.BAG IV SCH (22:00)
[2018-05-08] MEDS ORDERED: LORazepam 2 MG/ML SDV VIAL ONE (22:15)
--- NOTE | 2018-05-08 22:15 | HP ---
CHIEF COMPLAINT: abdominal pain, n/v PCP: HISTORY OF PRESENT ILLNESS: Patient is a 32 y/o M w/ PMHx EtOH abuse x 15 years, childhood asthma, p/w sudden onset abdominal pain sharp in character x 2 days a/w n/v 3-4 episodes per day (NBNB), and difficulty passing urine (though was able to provide urine in ED after several hours and significant PO hydration). On presentation afebrile, tachy to 104, diastolic BP 106, hemodynamics stabilized after valium 10mg PO was given. Is actively intoxicated at this time with serum EtOH 148. WBC 19.1, mildly hyponatremic and hypokalemic. LFTs grossly deranged representing significant change from last known priors. Lipase unremarkable, renal US negative, abd US showing Claims to drink 1-2 cups of alcohol (unclear if beer or liquor daily) with last drink last night in effort to alleviated symptoms, however previous documentation states that he has 15 alcoholic drinks daily. Was admitted September last year for similar constellation of symptoms, imaging and other workup including hepatitis panels was negative and he was treated for presumed withdrawal symptoms. LFTs were only mildly elevated at that time. ER course was notable for: (1) EtOH 148 (2) AST 305, ALT 132, T Bilirubin 3.8, D Bilirubin 0.8, Alk Phos 172 (3) received PO KCl 40meq, 2mg morphine, 1L NS bolus, valium 10 PO Recent Travel: PAST MEDICAL HISTORY: As per HPI PAST SURGICAL HISTORY: Social History: As per HPI Smoking: Alcohol: Drugs: Family History: Allergies No Known Allergies Allergy (Verified 05/08/18 13:32) HOME MEDICATIONS: Home Medications Medication Instructions Recorded NK [No Known Home Medication] 05/08/18 REVIEW OF SYSTEMS As per [facility] PHYSICAL EXAMINATION Vital Signs - 24 hr 05/08/18 05/08/18 13:30 19:12 Temperature 97.2 F L 98.7 F Pulse Rate 104 H Pulse Rate [ 77 Right Radial] Respiratory 20 18 Rate Blood Pressure 139/106 H Blood Pressure 126/78 [Left Arm] O2 Sat by Pulse 99 98 Oximetry (%) GENERAL: Awake, alert, disoriented to date (believes the year is 2018) HEENT: NC/AT, PERRLA, EOMI, +scleral icterus, MMM NECK: Normal range of motion, supple without lymphadenopathy, JVD, or masses. LUNGS: CTA b/l HEART: RRR no m/r/g ABDOMEN: +bs, mildly distended, tympanitic, significantly TTP in LUQ and LLQ, mildly TTP in RUQ, strongly positive Solis's sign, unable to perform fluid wave exam d/t tenderness LOWER EXTREMITIES: 2+ pulses, warm, well-perfused. No calf tenderness. No peripheral edema. 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 w/o focal defect PSYCHIATRIC: assessment limited by language barrier, somewhat intoxicated and confused SKIN: diffusely jaundiced Laboratory Results - last 24 hr 05/08/18 05/08/18 05/08/18 14:48 14:48 14:48 WBC 19.1 H RBC 5.19 Hgb 17.4 H Hct 49.0 D MCV 94.4 MCH 33.5 MCHC 35.5 RDW 13.6 Plt Count 262 MPV 7.1 L Absolute Neuts (auto) 16.0 H Neutrophils % 83.7 H Lymphocytes % 8.0 D Monocytes % 8.1 Eosinophils % 0.0 D Basophils % 0.2 Nucleated RBC % 0 PT with INR 11.80 INR 1.00 Sodium Potassium Chloride Carbon Dioxide Anion Gap BUN Creatinine Creat Clearance w eGFR Random Glucose Calcium Total Bilirubin Direct Bilirubin AST ALT Alkaline Phosphatase Total Protein Albumin Total Amylase Lipase Urine Color Lazara Urine Appearance Slcloudy Urine pH 6.0 Ur Specific [place] 1.032 Urine Protein 2+ H Urine Glucose (UA) Negative Urine Ketones Trace H Urine Blood Negative Urine Nitrite Negative Urine Bilirubin 2.0 Urine Urobilinogen 4.0 e.u/dl Ur Leukocyte Esterase Negative Urine WBC (Auto) 2 Urine RBC (Auto) 2 Hyaline Casts 2 Urine Mucus Many Alcohol, Quantitative Blood Type Antibody Screen 05/08/18 05/08/18 05/08/18 14:48 14:48 20:38 WBC RBC Hgb Hct MCV MCH MCHC RDW Plt Count MPV Absolute Neuts (auto) Neutrophils % Lymphocytes % Monocytes % Eosinophils % Basophils % Nucleated RBC % PT with INR INR Sodium 133 L Potassium 3.3 L Chloride 92 L Carbon Dioxide 28 Anion Gap 13 BUN 10 Creatinine 0.9 Creat Clearance w eGFR > 60 Random Glucose 127 H Calcium 8.3 L Total Bilirubin 3.8 H Direct Bilirubin 0.8 H AST 305 H ALT 132 H Alkaline Phosphatase 172 H Total Protein 7.7 Albumin 3.7 Total Amylase 119 H Lipase 374 Urine Color Urine Appearance Urine pH Ur Specific [place] Urine Protein Urine Glucose (UA) Urine Ketones Urine Blood Urine Nitrite Urine Bilirubin Urine Urobilinogen Ur Leukocyte Esterase Urine WBC (Auto) Urine RBC (Auto) Hyaline Casts Urine Mucus Alcohol, Quantitative 148.0 H Blood Type O POSITIVE Antibody Screen Negative ASSESSMENT/PLAN: 32 y/o M w/ PMHx EtOH abuse x 15 years, childhood asthma, p/w sudden onset abdominal pain and n/v x 2 days, LFTs newly grossly deranged. #GI -WBC 19.1, AST 305 ALT 132 T bili 3.8 D bili 0.8 Alk Phos 172 -DDx alcoholic hepatitis vs SBP -afebrile, abd tender w/ +Solis's sign -abd US per application manager read: 1 cm calcification in right lower liver, distended GB w/ normal wall thickness and no gallstones seen -stat repeat CBC, will treat for peritonitis if leukocytosis worsens -GI consulted #neuro -Prophylaxis for hepatic encephalopathy given uptrending bilirubin: lactulose and rifaximin #EtOH -patient is actively intoxicated at this time per serum EtOH -withdrawal PPx w/ Ativan given LFT derangements -fall precautions #renal -hyponatremia likely 2/2 potomania -hypokalemia to be aggressively repleted -LR @ 75 -monitor and correct electrolytes #FEN -LR @ 75 -monitor and correct electrolytes -NPO pending GI evaluation #PPx -DVT: heparin subq -GI: not indicated #code -full #dispo admit to telemetry Visit type - Emergency Visit Emergency Visit: Yes ED Registration Date: 05/08/18 Care time: The patient presented to the Emergency Department on the above date and was hospitalized for further evaluation of their emergent condition. - New Patient This patient is new to me today: Yes Date on this admission: 05/08/18 - Critical Care Critical Care patient: No
[2018-05-08] MEDS: HEPARIN NA (PORCINE) 5,000 UNITS/ML 1ML VIAL SQ SCH (22:28)
[2018-05-08] MEDS: LORazepam 2 MG/ML SDV VIAL IVPUSH SCH (22:28)
[2018-05-08] MEDS: RIFAXIMIN 200 MG TABLET PO SCH (22:29)
[2018-05-09] MEDS ORDERED: LORazepam 2 MG/ML SDV VIAL ONE ×4 (02:01→14:20)
[2018-05-09] MEDS: LORazepam 2 MG/ML SDV VIAL IVPUSH SCH ×6 (02:07→21:40)
[2018-05-09] MEDS ORDERED: HEPARIN NA (PORCINE) 5,000 UNITS/ML 1ML VIAL ONE (06:19)
[2018-05-09] MEDS: RIFAXIMIN 200 MG TABLET PO SCH ×2 (06:21→14:24)
[2018-05-09] MEDS: HEPARIN NA (PORCINE) 5,000 UNITS/ML 1ML VIAL SQ SCH ×3 (06:21→21:40)
[2018-05-09 06:43] LABS: BASO % 0.2 % (0-2.0); LYMPH % 5.4 % (8-40); MCH 33.6 pg (25.7-33.7); MEAN CELL VOLUME 93.4 fl (80-96); MEAN PLT VOLUME 7.1 fl (7.5-11.1); MONO % 8.6 % (3.8-10.2); NEUT % 85.8 % (42.8-82.8); PLATELET COUNT 178 K/MM3 (134-434); RBC 4.18 M/mm3 (4.00-5.60); RDW 14.3 % (11.9-15.9); WHITE BLOOD COUNT 19.4 K/mm3 (4.0-10.0)
[2018-05-09 07:25] LABS: ALBUMIN 3.3 g/dl (3.4-5.0); ALK PHOS 132 U/L (45-117); ANION GAP 10 MMOL/L (8-16); BLOOD UREA NITROGEN 6 mg/dL (7-18); CALCIUM 8.4 mg/dL (8.5-10.1); CHLORIDE 94 mmol/L (98-107); CO2 25 mmol/L (21-32); CREATININE 0.6 mg/dL (0.55-1.3); GLUCOSE,RANDOM 111 mg/dL (74-106); MAGNESIUM 1.3 mg/dL (1.8-2.4); PHOSPHOROUS 2.3 mg/dL (2.5-4.9); POTASSIUM 3.7 mmol/L (3.5-5.1); SGOT/AST 175 U/L (15-37); SGPT/ALT 87 U/L (13-61); SODIUM 129 mmol/L (136-145); TOT PROT 6.5 g/dl (6.4-8.2)
[2018-05-09] MEDS ORDERED: MAGNESIUM 1GM/D5W - 2 GM/200 ML IVPB IVPB ONE (09:24)
[2018-05-09] MEDS ORDERED: SODIUM PHOSPHATE - 15 MM in SODIUM CHLORIDE 250 ML IVPB ONE (09:30)
[2018-05-09] MEDS: MAGNESIUM SULF 50% (8.12 MEQ/2 ML-1 GM VIAL) IVPB ONE ×2 (09:36→09:46)
--- NOTE | 2018-05-09 16:08 | PN ---
Progress Note (short form) - Note Progress Note: SUBJECTIVE: Complains of ongoing abdominal pain. No fever/chills. No further nausea/vomiting. No diarrhea/melena/hematochezia. OBJECTIVE: Afebrile, Hemodynamically Stable. Last Vital Signs Temp Pulse Resp BP Pulse Ox 98.9 F 99 H 20 116/74 98 05/09/18 14:31 05/09/18 14:31 05/09/18 14:31 05/09/18 14:31 05/09/18 14:31 HEENT - Atraumatic, Normocephalic Heart - S1, S2, RRR Lungs - clear to auscultation - no crackles/wheeze. Abdomen - soft, mild distension, non-tender. Bowel Sounds normal. Extremities - no edema. No calf tenderness. Laboratory Results - last 24 hr 05/08/18 05/09/18 05/09/18 20:38 06:10 06:10 WBC 19.4 H RBC 4.18 Hgb 14.0 Hct 39.0 D MCV 93.4 MCH 33.6 MCHC 36.0 H RDW 14.3 Plt Count 178 D MPV 7.1 L Absolute Neuts (auto) 16.6 H Neutrophils % 85.8 H Lymphocytes % 5.4 L D Monocytes % 8.6 Eosinophils % 0.0 Basophils % 0.2 Nucleated RBC % 0 Sodium 129 L Potassium 3.7 Chloride 94 L Carbon Dioxide 25 Anion Gap 10 BUN 6 L Creatinine 0.6 Creat Clearance w eGFR > 60 Random Glucose 111 H Calcium 8.4 L Phosphorus 2.3 L Magnesium 1.3 L Total Bilirubin 4.0 H Direct Bilirubin 0.8 H AST 175 H ALT 87 H Alkaline Phosphatase 132 H Total Protein 6.5 Albumin 3.3 L Current Medications Generic Name Dose Route Start Last Admin Trade Name Freq PRN Reason Stop Dose Admin Heparin Sodium (Porcine) 5,000 unit 05/08/18 21:45 05/09/18 14:24 Heparin - SQ 5,000 unit TID YUSEF Administration Lactated Ringer's 1,000 ml in 1,000 mls @ 75 mls/hr 05/08/18 22:00 05/08/18 22:29 Lactated Ringers Solution IV 75 mls/hr ASDIR YUSEF Administration Lactulose 20 gm 05/08/18 21:26 Cephulac (Oral Use) PO Q6H PRN CONSTIPATION Lorazepam 2 mg 05/08/18 21:45 05/09/18 14:24 Ativan Injection - IVPUSH 2 mg Q4H-IV YUSEF Administration Rifaximin 200 mg 05/08/18 22:00 05/09/18 14:24 Xifaxan - PO 200 mg TID YUSEF Administration Home Medications Medication Instructions Recorded NK [No Known Home Medication] 05/08/18 ASSESSMENT/PLAN: 32 year old Male with history of Alcohol Abuse, Childhood Asthma, presents to ED intoxicated, complaining of 2 day history of abdominal pain with nausea/ vomiting (non-bloody, non-bilious), with liver enzyme derangement. 1. Acute Hepatitis (likely sec to Alcohol) versus acute intra-abdominal process TBil 4.0, AST 175, ALT 132 Unknown underlying Liver disease ? SBP Abdominal US - 1 cm calcification RLL liver and distended GB with normal wall thickness, no gallstone - official report not yet available. Will send Hepatitis panel and further imaging with CT A/P Currently afebrile, hemodynamically stable. Will monitor off Abx. GI consulted. 2. Acute Alcohol Intoxication Alc level 148 on presentation. No evidence of withdrawal currently. Ativan prn if any signs of withdrawal. Banana Bag. Thiamine, MVI, Folate. 3. Electrolyte derangement sec to above - Hypokalemia, Hypomagnesemia, Hypophosphatemia - repleted. 4. Hyponatremia secondary to potomania Will continue hydration. DVT Px - Heparin SQ GI Px - PPI Visit type - Emergency Visit Emergency Visit: Yes ED Registration Date: 05/08/18 Care time: The patient presented to the Emergency Department on the above date and was hospitalized for further evaluation of their emergent condition. - New Patient This patient is new to me today: Yes Date on this admission: 05/09/18 - Critical Care Critical Care patient: No - Discharge Referral Referred to [facility] Med P.C.: No
[2018-05-09] MEDS ORDERED: FOLIC ACID INJECTION - 1 MG, THIAMINE HCL 100 MG, MULTIVIT INJECTION ADULT 10 ML in SOD... IVPB ONE (16:15)
[2018-05-09] MEDS ORDERED: SODIUM CHLORIDE 1,000 ML IV SCH (16:30)
[2018-05-09] MEDS: PANTOPRAZOLE SODIUM 40 MG VIAL IVPUSH SCH (16:41)
--- NOTE | 2018-05-09 18:07 | CON.GI ---
Consult Consult Specialty:: covering for Dr Boudreaux/Germán - History of Present Illness History of Present Illness: 32 y/o male wit history of alcohol abuse presented to the emergency room intoxicated associated with epigastric pain,nause and vomiting. He had similar clinical presentation September of 2017, He continued to drink heavily. I was asked to see the patient because of moderately elevated liver enzymes. Repeat ultrasound was pending,There was a downward trend of liver enzymes. - Alcohol/Substance Use Hx Alcohol Use: No - Smoking History Smoking history: Never smoked Have you smoked in the past 12 months: No Home Medications - Allergies Allergies/Adverse Reactions: Allergies Allergy/AdvReac Type Severity Reaction Status Date / Time No Known Allergies Allergy Verified 05/08/18 13:32 - Home Medications Home Medications: Ambulatory Orders NK [No Known Home Medication] 05/08/18 Physical Exam-GI Vital Signs: Vital Signs Temperature 98.9 F 05/09/18 14:31 Pulse Rate 99 H 05/09/18 14:31 Respiratory Rate 20 05/09/18 14:31 Blood Pressure 116/74 05/09/18 14:31 O2 Sat by Pulse Oximetry (%) 98 05/09/18 14:31 Constitutional: Yes: Well Nourished Eyes: Yes: Conjunctiva Clear HENT: Yes: Atraumatic Neck: Yes: Supple Cardiovascular: Yes: Regular Rate and Rhythm Respiratory: Yes: CTA Bilaterally ...Auscultate: No: Hypoactive Bowel Sounds ...Palpate: Yes: Soft, Tenderness, Epigastium. No: Guarding, Hepatomegaly, Mass , Pulsatile Mass, Splenomegaly ...Percussion: Yes: Tympanitic Labs: CBC, BMP 05/09/18 06:10 05/09/18 06:10 INR, PTT INR 1.00 (0.83-1.09) 05/08/18 14:48 Home Medications Medication Instructions Recorded NK [No Known Home Medication] 05/08/18 Home Medication List Medication Instructions Recorded Confirmed Type NK [No Known Home Medication] 05/08/18 05/08/18 History Active Medications Generic Name Dose Route Start Last Admin Trade Name Freq PRN Reason Stop Dose Admin Folic Acid 1 mg 05/10/18 10:00 Folic Acid - PO DAILY YUSEF Heparin Sodium (Porcine) 5,000 unit 05/08/18 21:45 05/09/18 14:24 Heparin - SQ 5,000 unit TID YUSEF Administration Sodium Chloride 1,000 mls @ 125 mls/hr 05/09/18 16:30 Normal Saline - IV ASDIR YUSEF Lactulose 20 gm 05/08/18 21:26 Cephulac (Oral Use) PO Q6H PRN CONSTIPATION Lorazepam 2 mg 05/08/18 21:45 05/09/18 14:24 Ativan Injection - IVPUSH 2 mg Q4H-IV YUSEF Administration Multivitamins/Minerals/Vitamin C 1 tab 05/10/18 10:00 Tab-A-Vit - PO DAILY YUSEF Pantoprazole Sodium 40 mg 05/09/18 16:30 05/09/18 16:41 Protonix Iv IVPUSH 40 mg DAILY YUSEF Administration Thiamine HCl 100 mg 05/10/18 10:00 Vitamin B1 - PO DAILY YUSEF Problem List - Problems (1) Alcoholic liver disease Assessment/Plan: expect liver enzymes to improve of alcohol R>serial lfts as an outpatient ' [facility] liver w/u as an outpatient was advised to abstain from alcohol follow abdominal ultrasound results Code(s): K70.9 - ALCOHOLIC LIVER DISEASE, UNSPECIFIED (2) Epigastric pain Assessment/Plan: r/o alcohol gastritis vspepetic ulcer disease R> increase Pantoprazole 40mg bi advance diet as tolerated Dr Dunlap will resume care in am Code(s): R10.13 - EPIGASTRIC PAIN
--- NOTE | 2018-05-09 22:31 | HOSP ---
Physical Examination Vital Signs: Vital Signs Temperature 99.4 F 05/09/18 19:00 Pulse Rate 114 H 05/09/18 19:00 Respiratory Rate 16 05/09/18 19:00 Blood Pressure 141/86 05/09/18 19:00 O2 Sat by Pulse Oximetry (%) 98 05/09/18 14:48 Labs: CBC, BMP 05/09/18 06:10 05/09/18 06:10 Hospitalist Encounter Assessment: Was paged by nurse to call imaging email operations manager for a critical result on CT abdomen/ pelvis. As per radiologist, CT consistent with acute pancreatitis. Distal tip of pancreas does not enhance, may be indicative of necrotizing pancreatitis. Clinical correlation indicated. Patient is sleeping comfortably, not offering any complaints. VS: temp 98.7, hr [address] Porter, it is possible distal tip of pancreas may not enhance with IV contrast. Patient remained afebrile all day. Continue IV fluids and pain management for now. Repeat labs in the morning. Visit type - Emergency Visit Emergency Visit: Yes ED Registration Date: 05/08/18 Care time: The patient presented to the Emergency Department on the above date and was hospitalized for further evaluation of their emergent condition. - New Patient This patient is new to me today: Yes Date on this admission: 05/10/18 - Critical Care Critical Care patient: No
[2018-05-10] MEDS: LORazepam 2 MG/ML SDV VIAL IVPUSH SCH ×6 (01:24→22:26)
[2018-05-10] MEDS ORDERED: morphine CARPU-JECT 2 MG/1 ML DISP.SYRIN IVPUSH ONE (05:44)
[2018-05-10] MEDS ORDERED: KETOROLAC TROMETHAMINE 15 MG/ML VIAL IVPUSH ONE (05:48)
[2018-05-10] MEDS: HEPARIN NA (PORCINE) 5,000 UNITS/ML 1ML VIAL SQ SCH ×3 (06:46→22:24)
[2018-05-10 07:41] LABS: BASO % 0.1 % (0-2.0); EOS % 0.1 % (0-4.5); HEMATOCRIT 37.2 % (35.4-49); HEMOGLOBIN 13.2 GM/dL (11.7-16.9); LYMPH % 6.3 % (8-40); MCH 33.6 pg (25.7-33.7); MCHC 35.4 g/dl (32.0-35.9); MEAN CELL VOLUME 94.8 fl (80-96); MEAN PLT VOLUME 7.7 fl (7.5-11.1); MONO % 5.7 % (3.8-10.2); NEUT % 87.8 % (42.8-82.8); PLATELET COUNT 146 K/MM3 (134-434); RBC 3.93 M/mm3 (4.00-5.60); WHITE BLOOD COUNT 25.6 K/mm3 (4.0-10.0)
[2018-05-10 08:06] LABS: ALK PHOS 126 U/L (45-117); ANION GAP 13 MMOL/L (8-16); BILIRUBIN,TOTAL 3.5 mg/dL (0.2-1); BLOOD UREA NITROGEN 6 mg/dL (7-18); CALCIUM 7.8 mg/dL (8.5-10.1); CHLORIDE 93 mmol/L (98-107); CO2 22 mmol/L (21-32); CREATININE 0.7 mg/dL (0.55-1.3); GLUCOSE,RANDOM 51 mg/dL (74-106); MAGNESIUM 1.5 mg/dL (1.8-2.4); PHOSPHOROUS 2.3 mg/dL (2.5-4.9); POTASSIUM 3.2 mmol/L (3.5-5.1); SGOT/AST 77 U/L (15-37); SGPT/ALT 51 U/L (13-61); SODIUM 129 mmol/L (136-145); TOT PROT 6.3 g/dl (6.4-8.2)
[2018-05-10] MEDS ORDERED: SODIUM CHLORIDE 2,000 ML IV STA (08:10)
[2018-05-10] MEDS ORDERED: SODIUM CHLORIDE 1,000 ML IV SCH (08:11)
[2018-05-10] MEDS ORDERED: MAGNESIUM SULF 50% (8.12 MEQ/2 ML-1 GM VIAL) IVPB ONE (08:30)
[2018-05-10] MEDS ORDERED: POTASSIUM CHLORIDE TABS 20 MEQ TABLET.ER (FP) PO ONE (08:30)
[2018-05-10] MEDS ORDERED: PIPERACILLIN/TAZOBACTAM 4.5 GM VIAL IVPB ONE (08:38)
[2018-05-10] MEDS ORDERED: DEXTROSE 5%-WATER 100 ML IVPB ONE (08:39)
[2018-05-10] MEDS ORDERED: SODIUM PHOSPHATE - 15 MM in SODIUM CHLORIDE 250 ML IVPB ONE (09:00)
[2018-05-10] MEDS ORDERED: PIPERACILLIN/TAZOB 4.5 GM 4.5 GM in DEXTROSE 5%-WATER 100 ML IVPB SCH (09:00)
[2018-05-10 09:47] LABS: ANISOCYTOSIS 0; MACROCYTOSIS 0; PLATELET ESTIMATE DECREASED
[2018-05-10 09:48] LABS: LIPASE 315 U/L (73-393)
[2018-05-10] MEDS: FOLIC ACID 1 MG TABLET (FP) PO SCH (09:48)
[2018-05-10] MEDS: THIAMINE HCL 100 MG TABLET (FP) PO SCH (09:48)
[2018-05-10] MEDS: MULTIVITAMINS (DAILY MVI) TABLET (FP) PO SCH (09:48)
[2018-05-10] MEDS: PANTOPRAZOLE SODIUM 40 MG VIAL IVPUSH SCH (09:49)
--- NOTE | 2018-05-10 10:45 | CONSULT ---
Consult Consult Specialty:: General Surgery Reason for Consultation:: pancreatitis - History of Present Illness Chief Complaint: abdominal pain History of Present Illness: 32 yo male PMH EtOH abuse x 15 years, childhood asthma, p/w sudden onset abdominal pain sharp in character x 2 days a/w n/v 3-4 episodes per day (NBNB), and difficulty passing urine (though was able to provide urine in ED after several hours and significant PO hydration). On presentation afebrile, tachy to 104, diastolic BP 106, hemodynamics stabilized after valium 10mg PO was given. Is actively intoxicated at this time with serum EtOH 148. WBC 19.1, mildly hyponatremic and hypokalemic. LFTs grossly deranged representing significant change from last known priors. Lipase unremarkable, renal US negative, abd US showing Claims to drink 1-2 cups of alcohol (unclear if beer or liquor daily) with last drink last night in effort to alleviated symptoms, however previous documentation states that he has 15 alcoholic drinks daily. Was admitted September last year for similar constellation of symptoms, imaging and other workup including hepatitis panels was negative and he was treated for presumed withdrawal symptoms. LFTs were only mildly elevated at that time. We were asked to assess, with CT results showing severe degenerative inflammatory changes. - History Source History Provided By: Patient, Medical Record Limitations to Obtaining History: No Limitations - Past Surgical History Past Surgical History: Yes: None - Alcohol/Substance Use Hx Alcohol Use: Yes - Smoking History Smoking history: Never smoked Have you smoked in the past 12 months: No - Social History Usual Living Arrangement: Alone Place of : Other History of Recent Travel: Yes Home Medications - Allergies Allergies/Adverse Reactions: Allergies Allergy/AdvReac Type Severity Reaction Status Date / Time No Known Allergies Allergy Verified 05/08/18 13:32 - Home Medications Home Medications: Ambulatory Orders NK [No Known Home Medication] 05/08/18 Review of Systems - Review of Systems Constitutional: reports: Fever. denies: Chills, Loss of Appetite Eyes: denies: Blind Spots, Recent Change in Vision HENT: denies: Difficult Swallowing, Throat Pain Neck: denies: Decreased ROM, Pain on Movement Cardiovascular: denies: Chest Pain, Palpitations Respiratory: denies: Cough, SOB Gastrointestinal: denies: Abdominal Pain, Constipation, Diarrhea Genitourinary: denies: Burning, Discharge, Menses Breasts: reports: No Symptoms Reported. denies: Pain Musculoskeletal: denies: Decreased ROM, Muscle Pain, Muscle Cramps Integumentary: denies: Erythema, Rash Neurological: denies: Seizure, Syncope Endocrine: denies: Unexplained Weight Gain, Unexplained Weight Loss Hematology/Lymphatic: denies: Easily Bruised, Excessive Bleeding Psychiatric: denies: Anxiety, Depression Physical Exam Vital Signs: Vital Signs Temperature 100.8 F H 05/10/18 08:26 Pulse Rate 104 H 05/10/18 08:26 Respiratory Rate 20 05/10/18 08:26 Blood Pressure 124/78 05/10/18 08:26 O2 Sat by Pulse Oximetry (%) 96 05/09/18 21:00 Constitutional: Yes: Well Nourished, No Distress, Calm Eyes: Yes: Conjunctiva Clear, EOM Intact HENT: Yes: Atraumatic, Normocephalic Neck: Yes: Supple, Trachea Midline Cardiovascular: Yes: Regular Rate and Rhythm, S1, S2 Respiratory: Yes: Regular, CTA Bilaterally Gastrointestinal: Yes: Normal Bowel Sounds, Soft, Abdomen, Obese, Distention, Tenderness (RUQ), Tenderness, Epigastrium. No: Ascites, Hepatomegaly, Tenderness, Rebound ...Rectal Exam: Yes: Deferred Renal/: No: CVA Tenderness - Left, CVA Tenderness - Right Breast(s): No: Gynecomastia, Nipple Inversion Musculoskeletal: Yes: Muscle Weakness. No: Muscle Pain Extremities: No: Cool, Cyanosis Edema: Yes Edema: LUE: Trace, RUE: Trace, LLE: Trace, RLE: Trace Integumentary: No: Bruising, Erythema, Jaundice Neurological: Yes: Alert, Oriented, Tremors Psychiatric: Yes: Alert, Oriented Labs: CBC, BMP 05/10/18 05:25 05/10/18 05:25 Imaging - Results Chest X-ray: Report Reviewed, Image Reviewed Cat Scan: Report Reviewed, Image Reviewed (early pancratic pseudocyst near tail , gas in the neck and body of the pancreas) Ultrasound: Report Reviewed, Image Reviewed Problem List - Problems (1) Pancreatitis, alcoholic, acute Assessment/Plan: 32yo male MMP with acute alcoholic necrotic pancreatitis, no need for acute surgical intervention. Consider monitored setting Suportive medical management Strict NPO and IVF hydration empiric IV antibiotics trend labs Consider CT guided aspiration if he continues to worsen clinically to see if there is bacteria present in the necrosis will follow Thank you for the opportunity to participate in the care of this patient. Code(s): K85.20 - ALCOHOL INDUCED ACUTE PANCREATITIS WITHOUT NECROSIS OR INFCT Qualifiers: Acute pancreatitis complication: uninfected necrosis Qualified Code(s): K85.21 - Alcohol induced acute pancreatitis with uninfected necrosis (2) Pancreatitis, necrotizing Code(s): K85.91 - ACUTE PANCREATITIS WITH UNINFECTED NECROSIS, UNSPECIFIED (3) Alcohol withdrawal Code(s): F10.239 - ALCOHOL DEPENDENCE WITH WITHDRAWAL, UNSPECIFIED Qualifiers: Complication of substance-induced condition: uncomplicated Qualified Code(s ): F10.230 - Alcohol dependence with withdrawal, uncomplicated (4) Alcoholic liver disease Code(s): K70.9 - ALCOHOLIC LIVER DISEASE, UNSPECIFIED (5) Transaminitis Code(s): R74.0 - NONSPEC ELEV OF LEVELS OF TRANSAMNS & LACTIC ACID DEHYDRGNSE (6) Vomiting Code(s): R11.10 - VOMITING, UNSPECIFIED
[2018-05-10] MEDS: DEXTROSE 5%-LACTATED RINGERS 1,000 ML IV SCH (12:53)
--- NOTE | 2018-05-10 13:42 | PN ---
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
--- NOTE | 2018-05-10 14:30 | PN ---
Teaching Attending Note Name of Resident: Toan Sahu ATTENDING PHYSICIAN STATEMENT I saw and evaluated the patient. I reviewed the resident's note and discussed the case with the resident. I agree with the resident's findings and plan as documented. SUBJECTIVE: Complains of ongoing abdominal pain. Fevers overnight. No further nausea/vomiting. No diarrhea/melena/hematochezia. OBJECTIVE: T max 101.6, Hemodynamically Stable. Last Vital Signs Temp Pulse Resp BP Pulse Ox 99.6 F 101 H 20 137/78 96 05/10/18 13:53 05/10/18 13:53 05/10/18 13:53 05/10/18 13:53 05/09/18 21:00 HEENT - Atraumatic, Normocephalic Heart - S1, S2, RRR Lungs - clear to auscultation - no crackles/wheeze. Abdomen - soft, mild distension, generalized tenderness in R and L UQs. Bowel Sounds normal. Extremities - no edema. No calf tenderness. Laboratory Results - last 24 hr 05/10/18 05/10/18 05/10/18 05:25 05:25 09:05 WBC 25.6 H RBC 3.93 L Hgb 13.2 Hct 37.2 MCV 94.8 MCH 33.6 MCHC 35.4 RDW 14.0 Plt Count 146 MPV 7.7 Absolute Neuts (auto) 22.5 H Neutrophils % 87.8 H Neutrophils % (Manual) 83.7 H Band Neutrophils % 9.2 Lymphocytes % 6.3 L Lymphocytes % (Manual) 2.0 L Monocytes % 5.7 Monocytes % (Manual) 4 Eosinophils % 0.1 D Eosinophils % (Manual) 0.0 Basophils % 0.1 Basophils % (Manual) 0.0 Myelocytes % (Man) 0 Promyelocytes % (Man) 0 Blast Cells % (Manual) 0 Nucleated RBC % 0 Metamyelocytes 0 Hypochromia 0 Platelet Estimate Decreased Polychromasia 0 Poikilocytosis 0 Anisocytosis 0 Microcytosis 0 Macrocytosis 0 Sodium 129 L Potassium 3.2 L Chloride 93 L Carbon Dioxide 22 Anion Gap 13 BUN 6 L Creatinine 0.7 Creat Clearance w eGFR > 60 POC Glucometer 125 Random Glucose 51 L Calcium 7.8 L Phosphorus 2.3 L Magnesium 1.5 L Total Bilirubin 3.5 H AST 77 H ALT 51 Alkaline Phosphatase 126 H Total Protein 6.3 L Albumin 3.0 L Lipase 315 Current Medications Generic Name Dose Route Start Last Admin Trade Name Freq PRN Reason Stop Dose Admin Folic Acid 1 mg 05/10/18 10:00 05/10/18 09:48 Folic Acid - PO 1 mg DAILY YUSEF Administration Heparin Sodium (Porcine) 5,000 unit 05/08/18 21:45 05/10/18 06:46 Heparin - SQ 5,000 unit TID YUSEF Administration Dextrose/Lactated Ringer's 1,000 mls @ 200 mls/hr 05/10/18 12:00 05/10/18 12: 53 D5-Lr - IV 200 mls/hr ASDIR YUSEF Administration Imipenem/Cilastatin Sodium 500 100 mls @ 100 mls/hr 05/10/18 15:00 mg/ Sodium Chloride IVPB Q6H-IV YUSEF Protocol Lactulose 20 gm 05/08/18 21:26 Cephulac (Oral Use) PO Q6H PRN CONSTIPATION Lorazepam 2 mg 05/08/18 21:45 05/10/18 11:24 Ativan Injection - IVPUSH 2 mg Q4H-IV YUSEF Administration Multivitamins/Minerals/Vitamin C 1 tab 05/10/18 10:00 05/10/18 09:48 Tab-A-Vit - PO 1 tab DAILY YUSEF Administration Pantoprazole Sodium 40 mg 05/09/18 16:30 05/10/18 09:49 Protonix Iv IVPUSH 40 mg DAILY YUSEF Administration Thiamine HCl 100 mg 05/10/18 10:00 05/10/18 09:48 Vitamin B1 - PO 100 mg DAILY YUSEF Administration ASSESSMENT/PLAN: 32 year old Male with history of Alcohol Abuse, Childhood Asthma, presents to ED intoxicated, complaining of 2 day history of abdominal pain with nausea/ vomiting (non-bloody, non-bilious), with liver enzyme derangement. 1. Sepsis sec to Possible Acute Necrotic Pancreatitis with Acute Hepatitis ( likely sec to Alcohol) versus Acute Cholangitis HR 124, T 101.6, WBC 25 TBil 3.5, AST 175 --> 75, ALT 132--->51. Bilirubinemia mostly indirect ? Gilbert 's Abdominal US - 1 cm calcification RLL liver and distended GB with normal wall thickness, no gallstone, CBD 0.7cn CT A/P - Necrotizing Pancreatitis with splenic and prox hepatic vein thrombosis. MRCP requested STAT. Hepatitis panel pending. Ongoing fever, worsening leukocytosis - Discussed with ID - will cover with Imipenem for necrotizing pancreatitis with fever +/- cholangitis. Will discuss further with GI and Surgery for more structured recommendations/ plan. 2. Acute Alcohol Intoxication Alc level 148 on presentation. No evidence of withdrawal currently. Ativan prn if any signs of withdrawal. Banana Bag received. Thiamine, MVI, Folate. 3. Electrolyte derangement sec to above - Hypokalemia, Hypomagnesemia, Hypophosphatemia - recurrent - repleted, will monitor. 4. Hyponatremia secondary to potomania Will continue IV hydration. DVT Px - Heparin SQ GI Px - PPI
[2018-05-10] MEDS: IMIPENEM/CILASTATIN SODIUM 500 MG in SODIUM CHLORIDE 100 ML IVPB SCH ×2 (14:48→22:24)
--- NOTE | 2018-05-10 14:58 | PN ---
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 Mr. Dawson explains that he only drinks excessively on [place] and '. I did point out that there was a an ER visit at [facility] 10/07 for intoxication. He then explained that he drinks upwards of 4 beers per day regularly as well as a cup of vodka with dinner. he described predominantly mid and left sided upper abdominal pain. Abd US failed to reveal obvious cholelithiasis. CT scan revealed decreased perfusion at the tail of the pancreas along with peripancreatic inflammation at the tail. No pseudocyst was noted. There was also question of a splenic vein / proximal portal vein thrombosis. Received 2 L NS bolus today and is now on LR @ 200cc/hr. - Objective Vital Signs: Vital Signs Temperature 99.6 F 05/10/18 13:53 Pulse Rate 101 H 05/10/18 13:53 Respiratory Rate 20 05/10/18 13:53 Blood Pressure 137/78 05/10/18 13:53 O2 Sat by Pulse Oximetry (%) 96 05/09/18 21:00 Constitutional: Calm Eyes: No: Sclera Icterus Cardiovascular: Yes: Tachycardia Respiratory: Yes: CTA Bilaterally Gastrointestinal Inspection: No: Distention, Scars ...Auscultate: Yes: Hyperactive Bowel Sounds ...Palpate: Yes: Tenderness (TTP mid abdomen and left abdomen. Of note, negative ravi's) Edema: No (No LE edema) Neurological: Yes: Alert Labs: CBC, BMP 05/10/18 05:25 05/10/18 05:25 INR, PTT INR 1.00 (0.83-1.09) 05/08/18 14:48 Problem List - Problems (1) Pancreatitis, necrotizing Assessment/Plan: Acute pancreatitis with decreased perfusion at the tail of the pancreas c/w necrosis WBC has increased. ? if concomitant alcoholic hepatitis in setting of preexisting liver disease or simply progression of pancreatitis. Given slightly promionent CBD noted on US< further evaluation of biliary tract warranted. Advise: NPO Aggressive IV hydration. Increase to 250cc LR Agree with MRI. I changed it to triple phase MRI of the abdomen with and without contrast with MRCP to evaluate pancreatic parenchyma, portal venois system and biliary tract. If portal vein thrombosis confirmed, should have hematology weight in regarding anticoagulation. I ordered AM labs Patient should be transferred to ICU given diagnosis of severe acute pancreatitis for close monitoring of I's and O's, hemodynamics I explained to Mr. Dawson via scarfer that he is significantly ill, likely due to his alcohol consumption. I excplained that his current clinical condition can be potentially life threatening and that he needs to completely abstain from alcohol. I explained that if he manages to get through this current episode of pancreatitis and continues to drink, he will likely from his continued alcoholism including from recurrent pancreatitis or other complications. Check chronic hepatitis screening serologies: Hepatitis A/B panel and hepatitis C antibody. Code(s): K85.91 - ACUTE PANCREATITIS WITH UNINFECTED NECROSIS, UNSPECIFIED
[2018-05-10] MEDS ORDERED: PT OWN MED DRAWER 7, Y5N ONE ×2 (15:52→18:25)
--- NOTE | 2018-05-10 16:58 | CONS ---
DATE OF CONSULTATION: DATE OF DICTATION: 05/10/2018 REQUESTING PHYSICIAN: Hospitalist service HISTORY: This is a 32-year-old man with a past medical history of alcohol use. He has a prior visit in September where he spent a night in the hospital for abdominal pain and bilious vomiting. He was noted to have abnormal LFTs. It was also thought to be secondary to alcohol use. He now returns with onset of abdominal pain, nausea, and vomiting on the 15th night. He reports having fever at that time as well. He reports he drinks alcohol socially. He last had a drink of vodka on the night that he came to the hospital. He drinks several beers daily. I am asked to see him because after admission he developed fever this morning and question about pancreatitis with pancreatic necrosis was raised. He is currently awake and alert. He reports he has midepigastric abdominal pain. He denies any dysuria. His vomiting has stopped. ALLERGIES: He has no known drug allergies. MEDICATIONS: He takes no medications as an outpatient. SOCIAL HISTORY: There is no history of any recent travel. He is originally from [facility]. 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 He denies any cigarette or substance use. REVIEW OF SYSTEMS: As per HPI. PHYSICAL EXAMINATION: General: He is awake and alert. I spoke to him via certification officer. Vital Signs: T-max 101.6, currently 100.8, pulse 104, blood pressure 124/78, respiratory rate 20, saturating 96% on room air. HEENT: He is normocephalic. His eyes are mildly icteric. He has no thrush. Neck: Supple. Lungs: Diminished breath sounds at the bases. Heart: Regular rate and rhythm. Abdomen: Soft. He has midepigastric discomfort to palpation. Extremities: Without edema. DIAGNOSTIC DATA: White count today is 25.6, on admission 19.1, hemoglobin 13.1, platelets 146. Chemistries: BUN 6, creatinine 0.7, AST 77, ALT 51, alkaline phosphatase 126, lipase 315, total bilirubin 3.5. Urinalysis is negative. His alcohol level was 148 on admission. He is hepatitis A positive with negative hepatitis C from September. Blood and urine cultures have been sent. Chest x-ray shows a left basilar infiltrate versus atelectasis with blunting of the left costophrenic angle. In summary, this is a 32-year-old young man admitted with abdominal pain, nausea, and vomiting. Concerns include biliary sepsis as well as necrotizing pancreatitis. Discussed the case at least with the hospitalist. While awaiting cultures, we will obtain an MRI imaging of his abdomen to rule out choledocholithiasis. We will have GI and Surgery follow up ongoing. We will continue aggressive IV fluids and continue Imipenem. Further recommendations to follow. Mando [id number]
--- NOTE | 2018-05-10 17:54 | PN ---
Physical Exam: SUBJECTIVE: Patient seen and examined at bedside. fever 101.6F overnight, bcx drawn. zosyn x1 given, ID consulted. Complains of ongoing abdominal pain. denies cp, sob, n/v/d, urinary sxs, blood in stool OBJECTIVE: Vital Signs Period Temp Pulse Resp BP Sys/[place] Pulse Ox Last 24 Hr 98.2 F-101.6 F 101-124 16-20 124-141/74-86 96-96 GENERAL: AOX3 mild distress HEAD: NCAT EYES: PERRL, extraocular movements intact, sclera anicteric, conjunctiva clear. No ptosis. ENT: Ears normal, nares patent, oropharynx clear without exudates, MMM NECK: Trachea midline, full range of motion, supple. LUNGS: CTAB HEART: Tachy, RR, S1, S2 without murmur, rub or gallop. ABDOMEN: distended, TTP diffusely, more prominent in upper quadrants and epigastrum. +BS EXTREMITIES: 2+ pulses, warm, well-perfused, no edema. 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: Cranial nerves II through XII grossly intact. Normal speech, gait not observed. PSYCH: Normal mood, normal affect. SKIN: Warm, dry, normal turgor, no rashes or lesions noted Laboratory Results - last 24 hr 05/10/18 05/10/18 05/10/18 05:25 05:25 09:05 WBC 25.6 H RBC 3.93 L Hgb 13.2 Hct 37.2 MCV 94.8 MCH 33.6 MCHC 35.4 RDW 14.0 Plt Count 146 MPV 7.7 Absolute Neuts (auto) 22.5 H Neutrophils % 87.8 H Neutrophils % (Manual) 83.7 H Band Neutrophils % 9.2 Lymphocytes % 6.3 L Lymphocytes % (Manual) 2.0 L Monocytes % 5.7 Monocytes % (Manual) 4 Eosinophils % 0.1 D Eosinophils % (Manual) 0.0 Basophils % 0.1 Basophils % (Manual) 0.0 Myelocytes % (Man) 0 Promyelocytes % (Man) 0 Blast Cells % (Manual) 0 Nucleated RBC % 0 Metamyelocytes 0 Hypochromia 0 Platelet Estimate Decreased Polychromasia 0 Poikilocytosis 0 Anisocytosis 0 Microcytosis 0 Macrocytosis 0 Sodium 129 L Potassium 3.2 L Chloride 93 L Carbon Dioxide 22 Anion Gap 13 BUN 6 L Creatinine 0.7 Creat Clearance w eGFR > 60 POC Glucometer 125 Random Glucose 51 L Calcium 7.8 L Phosphorus 2.3 L Magnesium 1.5 L Total Bilirubin 3.5 H AST 77 H ALT 51 Alkaline Phosphatase 126 H Total Protein 6.3 L Albumin 3.0 L Lipase 315 Active Medications Generic Name Dose Route Start Last Admin Trade Name Freq PRN Reason Stop Dose Admin Folic Acid 1 mg 05/10/18 10:00 05/10/18 09:48 Folic Acid - PO 1 mg DAILY YUSEF Administration Heparin Sodium (Porcine) 5,000 unit 05/08/18 21:45 05/10/18 14:41 Heparin - SQ 5,000 unit TID YUSEF Administration Dextrose/Lactated Ringer's 1,000 mls @ 200 mls/hr 05/10/18 12:00 05/10/18 12: 53 D5-Lr - IV 200 mls/hr ASDIR YUSEF Administration Imipenem/Cilastatin Sodium 500 100 mls @ 100 mls/hr 05/10/18 15:00 05/10/18 14:48 mg/ Sodium Chloride IVPB 100 mls/hr Q6H-IV YUSEF Administration Protocol Lactulose 20 gm 05/08/18 21:26 Cephulac (Oral Use) PO Q6H PRN CONSTIPATION Lorazepam 2 mg 05/08/18 21:45 05/10/18 14:45 Ativan Injection - IVPUSH 2 mg Q4H-IV YUSEF Administration Multivitamins/Minerals/Vitamin C 1 tab 05/10/18 10:00 05/10/18 09:48 Tab-A-Vit - PO 1 tab DAILY YUSEF Administration Pantoprazole Sodium 40 mg 05/09/18 16:30 05/10/18 09:49 Protonix Iv IVPUSH 40 mg DAILY YUSEF Administration Thiamine HCl 100 mg 05/10/18 10:00 05/10/18 09:48 Vitamin B1 - PO 100 mg DAILY YUSEF Administration ASSESSMENT/PLAN: 32 yo M w/ PMH EtOH abuse x 15 years, Childhood Asthma, presents to ED intoxicated, complaining of 2 day history of abdominal pain with nausea/ vomiting (non-bloody, non-bilious), with liver enzyme derangement. Sepsis 2/2 Possible Acute Necrotic Pancreatitis w/ Acute Hepatitis likely 2/2 Alcohol vs Acute Cholangitis - tachy 124, T 101.6, WBC 25 TBil 3.5, AST 175 --> 75, ALT 132--->51. Bilirubinemia mostly indirect rpt lipase of 315 -Abdominal US - 1 cm calcification RLL liver and distended GB with normal wall thickness, no gallstone, CBD 0.7cm -CT A/P - Necrotizing Pancreatitis (decreased perfusion at the tail) with distal splenic and prox portal vein thrombosis. -Triple phase MRI of the abdomen with and w/o contrast with MRCP to evaluate pancreatic parenchyma, portal venois system and biliary tract. If portal vein thrombosis confirmed, should have hematology weight in regarding anticoagulation , GI recs appreciated -Hepatitis panel pending. -imipenem 500 q6h for necrotizing pancreatitis with fever +/- cholangitis. -ICU monitoring for severe acute pancreatitis -ID consult -Surgery consult -GI consult Acute ETOH Intoxication -etoh level 148 on presentation. CIWA of 1 on admission No evidence of withdrawal currently. Ativan prn if any signs of withdrawal. s/p Banana Bag c/w Thiamine, MVI, Folate. Hyponatremia 2/2 potomania Will continue IVF Hypoglycemia - 50s this morning will add D5 to IVF FEN D5 LR 200cc/hr replete prn NPO DVT Px - Heparin SQ GI Px - PPI Dispo pt to be monitored in ICU Visit type - Emergency Visit Emergency Visit: Yes ED Registration Date: 05/08/18 Care time: The patient presented to the Emergency Department on the above date and was hospitalized for further evaluation of their emergent condition. - New Patient This patient is new to me today: Yes Date on this admission: 05/10/18 - Critical Care Critical Care patient: No
--- NOTE | 2018-05-10 18:08 | CONSULT ---
Consultation: REQUESTING PROVIDER: Dr. Haines/Dr. Zachary Blanco CONSULT REQUEST: We have been asked to medically evaluate this patient for acute necrotizing pancreatitis HISTORY OF PRESENT ILLNESS: 32 year old malian speaking gentleman with a long history of alcohol abuse, last drink being Thursday, presented to the hospital for 2 day history of nausea and vomiting with severe abdominal pain and urinary retention and admitted for the treatment of severe acute necrotizing pancreatitis. Patient states that he had drank every day prior to arriving at the hospital, having 7 drinks at [employer] on Thursday (beers), and 2 drinks the day before. He was hesitant to tell me how many drinks he has had prior to . Reports that since coming to the hospital, his abdominal pain has slightly improved, but he feels pain across the top of his abdomen, with the majority of the pain in the LUQ and the RUQ. Reports the pain is 10/10 and nonradiating. States that he is mildly short of breath and nauseous. Denies chest pain, diarrhea. Smoking: denies Alcohol: daily heavy drinker of 15 years Drugs: denies Family history: denies history of cancer in family or GI illness Surgeries: denies REVIEW OF SYSTEMS: CONSTITUTIONAL: fever Absent: chills, diaphoresis, generalized weakness, malaise, loss of appetite, weight change HEENT: Absent: rhinorrhea, nasal congestion, throat pain, throat swelling, difficulty swallowing, mouth swelling, ear pain, eye pain, visual changes CARDIOVASCULAR: Absent: chest pain, syncope, palpitations, irregular heart rate, lightheadedness , peripheral edema RESPIRATORY: shortness of breath Absent: cough, dyspnea with exertion, orthopnea, wheezing, stridor, hemoptysis GASTROINTESTINAL:abdominal pain, vomiting Absent: abdominal distension, nausea, diarrhea, constipation, melena, hematochezia GENITOURINARY: Absent: dysuria, frequency, urgency, hesitancy, hematuria, flank pain, genital pain MUSCULOSKELETAL: Absent: myalgia, arthralgia, joint swelling, back pain, neck pain SKIN: Absent: rash, itching, pallor HEMATOLOGIC/IMMUNOLOGIC: Absent: easy bleeding, easy bruising, lymphadenopathy, frequent infections ENDOCRINE: Absent: unexplained weight gain, unexplained weight loss, heat intolerance, cold intolerance NEUROLOGIC: unsteady gait Absent: headache, focal weakness or paresthesias, dizziness, seizure, mental status changes, bladder or bowel incontinence PSYCHIATRIC: Absent: anxiety, depression, suicidal or homicidal ideation, hallucinations. PHYSICAL EXAMINATION Vital Signs - 24 hr 05/09/18 05/09/18 05/09/18 19:00 21:00 21:35 Temperature 99.4 F 99.5 F Pulse Rate 114 H 114 H Respiratory 16 18 Rate Blood Pressure 141/86 132/78 O2 Sat by Pulse 96 Oximetry (%) 05/10/18 05/10/18 05/10/18 01:57 05:47 08:26 Temperature 98.2 F 101.6 F H 100.8 F H Pulse Rate 112 H 124 H 104 H Respiratory 18 20 20 Rate Blood Pressure 132/74 132/80 124/78 O2 Sat by Pulse Oximetry (%) 05/10/18 05/10/18 09:00 13:53 Temperature 99.6 F Pulse Rate 101 H Respiratory 20 Rate Blood Pressure 137/78 O2 Sat by Pulse 96 Oximetry (%) GENERAL: A&Ox3, mild distress EYES: PERRLA, EOMI, sclera mildly icteric ENT: Moist mucus membranes, no exudates noted NECK: No JVD, no lymphadenopathy LUNGS: CTA, no wheezes, rhales or ronchi HEART: mildly tachycardic, no murmurs noted on exam ABDOMEN: Soft, tender to palpation in the LUQ and RUQ, ravi sign negative, no scars or lesions on the pancreas MUSCULOSKELETAL: No CVA Tenderness EXTREMITIES: 2+ pulses, no edema. 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: Cranial nerves II-XII intact. Motor strength 5/5, sensation intact. Laboratory Results - last 24 hr 05/10/18 05/10/18 05/10/18 05:25 05:25 09:05 WBC 25.6 H RBC 3.93 L Hgb 13.2 Hct 37.2 MCV 94.8 MCH 33.6 MCHC 35.4 RDW 14.0 Plt Count 146 MPV 7.7 Absolute Neuts (auto) 22.5 H Neutrophils % 87.8 H Neutrophils % (Manual) 83.7 H Band Neutrophils % 9.2 Lymphocytes % 6.3 L Lymphocytes % (Manual) 2.0 L Monocytes % 5.7 Monocytes % (Manual) 4 Eosinophils % 0.1 D Eosinophils % (Manual) 0.0 Basophils % 0.1 Basophils % (Manual) 0.0 Myelocytes % (Man) 0 Promyelocytes % (Man) 0 Blast Cells % (Manual) 0 Nucleated RBC % 0 Metamyelocytes 0 Hypochromia 0 Platelet Estimate Decreased Polychromasia 0 Poikilocytosis 0 Anisocytosis 0 Microcytosis 0 Macrocytosis 0 Sodium 129 L Potassium 3.2 L Chloride 93 L Carbon Dioxide 22 Anion Gap 13 BUN 6 L Creatinine 0.7 Creat Clearance w eGFR > 60 POC Glucometer 125 Random Glucose 51 L Calcium 7.8 L Phosphorus 2.3 L Magnesium 1.5 L Total Bilirubin 3.5 H AST 77 H ALT 51 Alkaline Phosphatase 126 H Total Protein 6.3 L Albumin 3.0 L Lipase 315 Active Medications Generic Name Dose Route Start Last Admin Trade Name Freq PRN Reason Stop Dose Admin Chlorhexidine Gluconate 1 applic 05/10/18 22:00 Hibiclens For Decolonization - TP HS YUSEF Folic Acid 1 mg 05/10/18 10:00 05/10/18 09:48 Folic Acid - PO 1 mg DAILY YUSEF Administration Heparin Sodium (Porcine) 5,000 unit 05/08/18 21:45 05/10/18 14:41 Heparin - SQ 5,000 unit TID YUSEF Administration Dextrose/Lactated Ringer's 1,000 mls @ 200 mls/hr 05/10/18 12:00 05/10/18 12: 53 D5-Lr - IV 200 mls/hr ASDIR YUSEF Administration Imipenem/Cilastatin Sodium 500 100 mls @ 100 mls/hr 05/10/18 15:00 05/10/18 14:48 mg/ Sodium Chloride IVPB 100 mls/hr Q6H-IV YUSEF Administration Protocol Lactulose 20 gm 05/08/18 21:26 Cephulac (Oral Use) PO Q6H PRN CONSTIPATION Lorazepam 2 mg 05/08/18 21:45 05/10/18 14:45 Ativan Injection - IVPUSH 2 mg Q4H-IV YUSEF Administration Multivitamins/Minerals/Vitamin C 1 tab 05/10/18 10:00 05/10/18 09:48 Tab-A-Vit - PO 1 tab DAILY YUSEF Administration Mupirocin 1 applic 05/10/18 22:00 Bactroban Ointment (For Decolonization) - NS 05/15/18 21:59 BID YUSEF Pantoprazole Sodium 40 mg 05/09/18 16:30 05/10/18 09:49 Protonix Iv IVPUSH 40 mg DAILY YUSEF Administration Thiamine HCl 100 mg 05/10/18 10:00 05/10/18 09:48 Vitamin B1 - PO 100 mg DAILY YUSEF Administration ASSESSMENT/PLAN: 32 year old malian speaking gentleman with a long history of alcohol abuse, last drink being Thursday, presented to the hospital for 2 day history of nausea and vomiting with severe abdominal pain and urinary retention and admitted for the treatment of severe acute necrotizing pancreatitis. Neurological: Mental status intact CIWA of 1 on admission Alcohol detox in progress, ativan 2mg today q4h, folic acid and thiamine Gastrointestinal: #Sepsis secondary to severe, acute, necrotizing pancreatitis: patient meets clinical criteria of acute pancreatitis with abdominal pain and CT evidence of pancreatitis. Notably, patient had a lipase of 315 and only mildly elevated transaminases. -CT showed acute pancreatitis w/ diminished perfusion in the pancreatic tail as well as peripancreatic inflammatory changes; Additionally, reported splenic and portal vein thrombosis -JEFFREY SCORE 4, however cannot completely do jeffrey without an LDH on admission ; at a score of 4, predicts 15% mortality -POINT HOPE IRA II score 5 predicts 8% nonoperative mortality, likely overestimated based on not having all criteria in labwork prior to assessment -received 5L of fluid hydration prior to ICU evaluation -continue to hydrate patient with D5/LR @ 200cc/hr -continue imipenem (day 1 today) as indicated for sepsis secondary to acute, necrotizing pancreatitis -oral intake within 72 hours of admission if not inhibited by significant nausea , vomiting, or pain -GI service consulted -Will obtain triple-phase MRI to evaluate necrosis of pancreas and portal/ hepatic vein systems -ID service consulted -NPO for now, evaluate status by tomorrow #Splenic and Hepatic Vein Thrombosis: reported to us by preliminary CT scan -would evaluate and confirm by triple-phase MRI as recommended by GI -If patient has confirmed thrombosis, will consult hematology for recommendations on whether or not to anticoagulate Cardiovascular: -patient is tachycardic and in sinus, likely due to sepsis vs pain -monitor vitals on telemetry Pulmonary: -tachypneic likely 2/2 to pain and septic condition, will give O2 by nasal cannula and monitor vitals ID: -Patient is in sepsis 2/2 acute necrotizing pancreatitis -will treat with imipenem as per ID Hematology/Oncology: -patient has CT evidence of hepatic and splenic vein thrombosis, decision to anticoagulate will be based on triple phase MRI results and subsequent hematology consultation if confirmed FEN: NPO for now D5/LR resuscitation Replete electrolytes in AM Prophylaxis: On heparin 5000 TID Disposition: Transfer to ICU for monitoring, anticipate downgrade within 1-2 days if patient continues to improve We will continue to follow the patient. Thank you for this consultative opportunity. Visit type - Emergency Visit Emergency Visit: No - New Patient This patient is new to me today: No - Critical Care Critical Care patient: Yes Total Critical Care Time (in minutes): 40 Critical Care Statement: The care of this patient involved high complexity decision making to prevent further life threatening deterioration of the patient 's condition and/or to evaluate & treat vital organ system(s) failure or risk of failure.
[2018-05-10] MEDS: MUPIROCIN 2% TOPICAL OINTMENT FOR DECOLONIZATION NS SCH (22:25)
[2018-05-10] MEDS: CHLORHEXIDINE GLUCONATE 4% CLEANSER FOR DECOLONIZATION TP SCH (22:25)
[2018-05-11] MEDS ORDERED: PT OWN MED DRAWER 7, Y5N ONE ×4 (02:31→21:53)
[2018-05-11] MEDS: IMIPENEM/CILASTATIN SODIUM 500 MG in SODIUM CHLORIDE 100 ML IVPB SCH ×4 (02:34→21:56)
[2018-05-11] MEDS: LORazepam 2 MG/ML SDV VIAL IVPUSH SCH ×6 (02:36→21:59)
[2018-05-11 05:50] LABS: BASO % 0.2 % (0-2.0); EOS % 0.2 % (0-4.5); HEMATOCRIT 34.5 % (35.4-49); HEMOGLOBIN 12.2 GM/dL (11.7-16.9); LYMPH % 8.5 % (8-40); MCH 33.8 pg (25.7-33.7); MCHC 35.5 g/dl (32.0-35.9); MEAN CELL VOLUME 95.3 fl (80-96); MEAN PLT VOLUME 7.5 fl (7.5-11.1); MONO % 7.2 % (3.8-10.2); NEUT % 83.9 % (42.8-82.8); PLATELET COUNT 135 K/MM3 (134-434); RBC 3.62 M/mm3 (4.00-5.60); RDW 14.1 % (11.9-15.9); WHITE BLOOD COUNT 18.9 K/mm3 (4.0-10.0)
[2018-05-11] MEDS: HEPARIN NA (PORCINE) 5,000 UNITS/ML 1ML VIAL SQ SCH ×2 (06:06→13:31)
[2018-05-11 06:22] LABS: ALBUMIN 2.6 g/dl (3.4-5.0); BILIRUBIN,DIRECT 0.9 mg/dL (0.0-0.2); BILIRUBIN,TOTAL 2.1 mg/dL (0.2-1); TOT PROT 6.1 g/dl (6.4-8.2)
[2018-05-11 06:38] LABS: ANION GAP 8 MMOL/L (8-16); BLOOD UREA NITROGEN 4 mg/dL (7-18); CALCIUM 7.6 mg/dL (8.5-10.1); CHLORIDE 101 mmol/L (98-107); CO2 23 mmol/L (21-32); CREATININE 0.7 mg/dL (0.55-1.3); GLUCOSE,RANDOM 115 mg/dL (74-106); POTASSIUM 3.2 mmol/L (3.5-5.1); SODIUM 132 mmol/L (136-145)
[2018-05-11 07:40] LABS: MAGNESIUM 2.1 mg/dL (1.8-2.4)
[2018-05-11] MEDS: KCL 10 MEQ IVPB 10 MEQ/100 ML INFUS.BAG IVPB SCH ×3 (07:55→09:45)
--- NOTE | 2018-05-11 08:06 | PN ---
Physical Exam: SUBJECTIVE: Patient seen and examined Patient seen and examined by me. No acute overnight events. CT shows thrombosis , will heparin drip after heme consult. patient is stable, but has episodic pain will order morphine prn. OBJECTIVE: Vital Signs Period Temp Pulse Resp BP Sys/[place] Pulse Ox Last 24 Hr 98.6 F-101.4 F 89-104 18-35 98-137/48-84 95-97 GENERAL: The patient is awake, alert, and fully oriented, in no acute distress. HEAD: Normal with no signs of trauma. EYES: PERRL, extraocular movements intact, sclera icteric bilaterally, conjunctiva clear. No ptosis. ENT: Ears normal, nares patent, oropharynx clear without exudates, moist mucous membranes. NECK: Trachea midline, full range of motion, supple. LUNGS: Breath sounds equal, clear to auscultation bilaterally, no wheezes, no crackles, no accessory muscle use. HEART: Regular rate and rhythm, S1, S2 without murmur, rub or gallop. ABDOMEN: Soft, tender in LUQ and epigastric, nondistended, normoactive bowel sounds, no guarding, no rebound, no hepatosplenomegaly, no masses. EXTREMITIES: 2+ pulses, warm, well-perfused, no edema. 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: Cranial nerves II through XII grossly intact. Normal speech, gait not observed. PSYCH: Normal mood, normal affect. SKIN: Warm, dry, normal turgor, no rashes or lesions noted Laboratory Results - last 24 hr 05/10/18 05/10/18 05/10/18 05:25 05:25 09:05 WBC 25.6 H RBC 3.93 L Hgb 13.2 Hct 37.2 MCV 94.8 MCH 33.6 MCHC 35.4 RDW 14.0 Plt Count 146 MPV 7.7 Absolute Neuts (auto) 22.5 H Neutrophils % 87.8 H Neutrophils % (Manual) 83.7 H Band Neutrophils % 9.2 Lymphocytes % 6.3 L Lymphocytes % (Manual) 2.0 L Monocytes % 5.7 Monocytes % (Manual) 4 Eosinophils % 0.1 D Eosinophils % (Manual) 0.0 Basophils % 0.1 Basophils % (Manual) 0.0 Myelocytes % (Man) 0 Promyelocytes % (Man) 0 Blast Cells % (Manual) 0 Nucleated RBC % 0 Metamyelocytes 0 Hypochromia 0 Platelet Estimate Decreased Polychromasia 0 Poikilocytosis 0 Anisocytosis 0 Microcytosis 0 Macrocytosis 0 Sodium 129 L Potassium 3.2 L Chloride 93 L Carbon Dioxide 22 Anion Gap 13 BUN 6 L Creatinine 0.7 Creat Clearance w eGFR > 60 POC Glucometer 125 Random Glucose 51 L Calcium 7.8 L Phosphorus 2.3 L Magnesium 1.5 L Total Bilirubin 3.5 H Direct Bilirubin AST 77 H ALT 51 Alkaline Phosphatase 126 H C-Reactive Protein Total Protein 6.3 L Albumin 3.0 L Lipase 315 05/11/18 05/11/18 05/11/18 05:30 05:30 05:30 WBC 18.9 H RBC 3.62 L Hgb 12.2 Hct 34.5 L MCV 95.3 MCH 33.8 H MCHC 35.5 RDW 14.1 Plt Count 135 MPV 7.5 Absolute Neuts (auto) 15.8 H Neutrophils % 83.9 H Neutrophils % (Manual) Band Neutrophils % Lymphocytes % 8.5 D Lymphocytes % (Manual) Monocytes % 7.2 Monocytes % (Manual) Eosinophils % 0.2 D Eosinophils % (Manual) Basophils % 0.2 Basophils % (Manual) Myelocytes % (Man) Promyelocytes % (Man) Blast Cells % (Manual) Nucleated RBC % 0 Metamyelocytes Hypochromia Platelet Estimate Polychromasia Poikilocytosis Anisocytosis Microcytosis Macrocytosis Sodium 132 L Potassium 3.2 L Chloride 101 Carbon Dioxide 23 Anion Gap 8 BUN 4 L Creatinine 0.7 Creat Clearance w eGFR > 60 POC Glucometer Random Glucose 115 H Calcium 7.6 L Phosphorus 2.0 L Magnesium 2.1 Total Bilirubin 2.1 H Direct Bilirubin 0.9 H AST 65 H ALT 36 Alkaline Phosphatase 119 H C-Reactive Protein 36.0 H Total Protein 6.1 L Albumin 2.6 L Lipase 05/11/18 05:30 WBC RBC Hgb Hct MCV MCH MCHC RDW Plt Count MPV Absolute Neuts (auto) Neutrophils % Neutrophils % (Manual) Band Neutrophils % Lymphocytes % Lymphocytes % (Manual) Monocytes % Monocytes % (Manual) Eosinophils % Eosinophils % (Manual) Basophils % Basophils % (Manual) Myelocytes % (Man) Promyelocytes % (Man) Blast Cells % (Manual) Nucleated RBC % Metamyelocytes Hypochromia Platelet Estimate Polychromasia Poikilocytosis Anisocytosis Microcytosis Macrocytosis Sodium Potassium Chloride Carbon Dioxide Anion Gap BUN Creatinine Creat Clearance w eGFR POC Glucometer Random Glucose Calcium Phosphorus Cancelled Magnesium Cancelled Total Bilirubin Direct Bilirubin AST ALT Alkaline Phosphatase C-Reactive Protein Total Protein Albumin Lipase Active Medications Generic Name Dose Route Start Last Admin Trade Name Freq PRN Reason Stop Dose Admin Chlorhexidine Gluconate 1 applic 05/10/18 22:00 05/10/18 22:25 Hibiclens For Decolonization - TP 1 applic HS YUSEF Administration Folic Acid 1 mg 05/10/18 10:00 05/10/18 09:48 Folic Acid - PO 1 mg DAILY YUSEF Administration Heparin Sodium (Porcine) 5,000 unit 05/08/18 21:45 05/11/18 06:06 Heparin - SQ 5,000 unit TID YUSEF Administration Dextrose/Lactated Ringer's 1,000 mls @ 200 mls/hr 05/10/18 12:00 05/10/18 12: 53 D5-Lr - IV 200 mls/hr ASDIR YUSEF Administration Imipenem/Cilastatin Sodium 500 100 mls @ 100 mls/hr 05/10/18 15:00 05/11/18 02:34 mg/ Sodium Chloride IVPB 100 mls/hr Q6H-IV YUSEF Administration Protocol Potassium Chloride 10 meq in 100 mls @ 100 mls/hr 05/11/18 06:45 05/11/18 07: 55 Potassium Chloride 10 Meq Premix Ivpb - IVPB 05/11/18 09:44 100 mls/hr Q60M YUSEF Administration Lactulose 20 gm 05/08/18 21:26 Cephulac (Oral Use) PO Q6H PRN CONSTIPATION Lorazepam 2 mg 05/08/18 21:45 05/11/18 06:06 Ativan Injection - IVPUSH 2 mg Q4H-IV YUSEF Administration Multivitamins/Minerals/Vitamin C 1 tab 05/10/18 10:00 05/10/18 09:48 Tab-A-Vit - PO 1 tab DAILY YUSEF Administration Mupirocin 1 applic 05/10/18 22:00 05/10/18 22:25 Bactroban Ointment (For Decolonization) - NS 05/15/18 21:59 1 applic BID YUSEF Administration Pantoprazole Sodium 40 mg 05/09/18 16:30 05/10/18 09:49 Protonix Iv IVPUSH 40 mg DAILY YUSEF Administration Thiamine HCl 100 mg 05/10/18 10:00 05/10/18 09:48 Vitamin B1 - PO 100 mg DAILY YUSEF Administration ASSESSMENT/PLAN: 32 yo M with a hx of ETOH abuse (last drink Thursday) admitted to [facility] for 2x day of N/V with severe abdominal pain subsequently admitted to the ICU for severe acute necrotizing pancreatitis. Neurological Alert and oriented x3. Mental status intact CIWA of 1 on admission Alcohol detox in progress, ativan 2mg q4h, folic acid and thiamine -Monitor for mental status changes GI: Sepsis secondary to acute, severe, necrotizing pancreatitis. SANDEEP score is 4 (LDH not assessed at initial intake) with an FLANDREAU II score 5. These predict 15% and 8% mortality respectively. GI service consulted, appreciate recommendations. Scheduled for a EGD tomorrow will stop heparin drop. Continue hydration, increased hydration rate to 250 cc/hr with D5/LR. Will continue imipenem per ID for acute necrotizing pancreatitis. Triple phase MRI showed thromobosis in the splenic vein with necrotizing pancreatitis in the tail portion with a hemorrhagic component, but no portal vein thrombosis. After speaking with radiology, problems could be with study itself; if CT showed portal thrombosis then its present. 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 Consulted heme; agreed to start heparin drip for anticoagulation with d-dimer, fibrinogen, factor 8 and 9, protein c and s to be ordered prior. Per lab, there is no order on [employer] for factor 9, therefore they ordered for us and its a send out. Will continue heparin drip. CV: Tachycardic sinus. Likely secondary to sepsis vs pain -Monitor vitals on telemetry Pulm: Tachypneic likely secondary to pain and septic condition. O2 stable -Continue to monitor ID: Continue imipenem per ID for necrotizing pancreatitis. FEN: NPO for now D5/LR Replete electrolytes in AM PPX: Heparin Disposition: Will continue ICU monitoring, expected EGD tomorrow. Likely will be transferred to floors within 48 hours if conditions continue to be stable Visit type - Emergency Visit Emergency Visit: Yes ED Registration Date: 05/08/18 Care time: The patient presented to the Emergency Department on the above date and was hospitalized for further evaluation of their emergent condition. - New Patient This patient is new to me today: Yes Date on this admission: 05/11/18 - Critical Care Critical Care patient: Yes Total Critical Care Time (in minutes): 36 Critical Care Statement: The care of this patient involved high complexity decision making to prevent further life threatening deterioration of the patient 's condition and/or to evaluate & treat vital organ system(s) failure or risk of failure. - Discharge Referral Referred to [facility] No
--- NOTE | 2018-05-11 08:49 | PN ---
Physical Exam: SUBJECTIVE: Patient seen and examined at bedside in ICU. Affirms pain improving , no further nausea/vomiting. OBJECTIVE: Vital Signs Period Temp Pulse Resp BP Sys/Mon[place]jo Pulse Ox Last 24 Hr 98.6 F-101.4 F 89-104 18-38 94-137/48-84 95-97 GENERAL: A&Ox3, no signs of withdrawal HEENT: NC/AT, PERRLA, EOMI, +scleral icterus improving, MMM NECK: Normal range of motion, supple without lymphadenopathy, JVD, or masses. LUNGS: CTA b/l HEART: RRR no m/r/g ABDOMEN: +bs, mildly distended, tympanitic, improving TTP in LUQ and LLQ, no TTP in RUQ but +Solis's sign LOWER EXTREMITIES: 2+ pulses, warm, well-perfused. No calf tenderness. No peripheral edema. 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 defect SKIN: diffusely jaundiced Laboratory Results - last 24 hr 05/10/18 05/10/18 05/10/18 05:25 05:25 09:05 WBC RBC Hgb Hct MCV MCH MCHC RDW Plt Count MPV Absolute Neuts (auto) Neutrophils % Neutrophils % (Manual) 83.7 H Band Neutrophils % 9.2 Lymphocytes % Lymphocytes % (Manual) 2.0 L Monocytes % Monocytes % (Manual) 4 Eosinophils % Eosinophils % (Manual) 0.0 Basophils % Basophils % (Manual) 0.0 Myelocytes % (Man) 0 Promyelocytes % (Man) 0 Blast Cells % (Manual) 0 Nucleated RBC % 0 Metamyelocytes 0 Hypochromia 0 Platelet Estimate Decreased Polychromasia 0 Poikilocytosis 0 Anisocytosis 0 Microcytosis 0 Macrocytosis 0 Sodium 129 L Potassium 3.2 L Chloride 93 L Carbon Dioxide 22 Anion Gap 13 BUN 6 L Creatinine 0.7 Creat Clearance w eGFR > 60 POC Glucometer 125 Random Glucose 51 L Calcium 7.8 L Phosphorus 2.3 L Magnesium 1.5 L Total Bilirubin 3.5 H Direct Bilirubin AST 77 H ALT 51 Alkaline Phosphatase 126 H C-Reactive Protein Total Protein 6.3 L Albumin 3.0 L Lipase 315 05/11/18 05/11/18 05/11/18 05:30 05:30 05:30 WBC 18.9 H RBC 3.62 L Hgb 12.2 Hct 34.5 L MCV 95.3 MCH 33.8 H MCHC 35.5 RDW 14.1 Plt Count 135 MPV 7.5 Absolute Neuts (auto) 15.8 H Neutrophils % 83.9 H Neutrophils % (Manual) Band Neutrophils % Lymphocytes % 8.5 D Lymphocytes % (Manual) Monocytes % 7.2 Monocytes % (Manual) Eosinophils % 0.2 D Eosinophils % (Manual) Basophils % 0.2 Basophils % (Manual) Myelocytes % (Man) Promyelocytes % (Man) Blast Cells % (Manual) Nucleated RBC % 0 Metamyelocytes Hypochromia Platelet Estimate Polychromasia Poikilocytosis Anisocytosis Microcytosis Macrocytosis Sodium 132 L Potassium 3.2 L Chloride 101 Carbon Dioxide 23 Anion Gap 8 BUN 4 L Creatinine 0.7 Creat Clearance w eGFR > 60 POC Glucometer Random Glucose 115 H Calcium 7.6 L Phosphorus 2.0 L Magnesium 2.1 Total Bilirubin 2.1 H Direct Bilirubin 0.9 H AST 65 H ALT 36 Alkaline Phosphatase 119 H C-Reactive Protein 36.0 H Total Protein 6.1 L Albumin 2.6 L Lipase 05/11/18 05:30 WBC RBC Hgb Hct MCV MCH MCHC RDW Plt Count MPV Absolute Neuts (auto) Neutrophils % Neutrophils % (Manual) Band Neutrophils % Lymphocytes % Lymphocytes % (Manual) Monocytes % Monocytes % (Manual) Eosinophils % Eosinophils % (Manual) Basophils % Basophils % (Manual) Myelocytes % (Man) Promyelocytes % (Man) Blast Cells % (Manual) Nucleated RBC % Metamyelocytes Hypochromia Platelet Estimate Polychromasia Poikilocytosis Anisocytosis Microcytosis Macrocytosis Sodium Potassium Chloride Carbon Dioxide Anion Gap BUN Creatinine Creat Clearance w eGFR POC Glucometer Random Glucose Calcium Phosphorus Cancelled Magnesium Cancelled Total Bilirubin Direct Bilirubin AST ALT Alkaline Phosphatase C-Reactive Protein Total Protein Albumin Lipase Active Medications Generic Name Dose Route Start Last Admin Trade Name Freq PRN Reason Stop Dose Admin Chlorhexidine Gluconate 1 applic 05/10/18 22:00 05/10/18 22:25 Hibiclens For Decolonization - TP 1 applic HS YUSEF Administration Folic Acid 1 mg 05/10/18 10:00 05/10/18 09:48 Folic Acid - PO 1 mg DAILY YUSEF Administration Heparin Sodium (Porcine) 5,000 unit 05/08/18 21:45 05/11/18 06:06 Heparin - SQ 5,000 unit TID YUSEF Administration Dextrose/Lactated Ringer's 1,000 mls @ 200 mls/hr 05/10/18 12:00 05/10/18 12: 53 D5-Lr - IV 200 mls/hr ASDIR YUSEF Administration Imipenem/Cilastatin Sodium 500 100 mls @ 100 mls/hr 05/10/18 15:00 05/11/18 02:34 mg/ Sodium Chloride IVPB 100 mls/hr Q6H-IV YSUEF Administration Protocol Potassium Chloride 10 meq in 100 mls @ 100 mls/hr 05/11/18 06:45 05/11/18 07: 55 Potassium Chloride 10 Meq Premix Ivpb - IVPB 05/11/18 09:44 100 mls/hr Q60M YUSEF Administration Lactulose 20 gm 05/08/18 21:26 Cephulac (Oral Use) PO Q6H PRN CONSTIPATION Lorazepam 2 mg 05/08/18 21:45 05/11/18 06:06 Ativan Injection - IVPUSH 2 mg Q4H-IV YUSEF Administration Multivitamins/Minerals/Vitamin C 1 tab 05/10/18 10:00 05/10/18 09:48 Tab-A-Vit - PO 1 tab DAILY YUSEF Administration Mupirocin 1 applic 05/10/18 22:00 05/10/18 22:25 Bactroban Ointment (For Decolonization) - NS 05/15/18 21:59 1 applic BID YUSEF Administration Pantoprazole Sodium 40 mg 05/09/18 16:30 05/10/18 09:49 Protonix Iv IVPUSH 40 mg DAILY YUSEF Administration Thiamine HCl 100 mg 05/10/18 10:00 05/10/18 09:48 Vitamin B1 - PO 100 mg DAILY YUSEF Administration ASSESSMENT/PLAN: 32 y/o M w/ PMHx EtOH abuse x 15 years, childhood asthma, presented to ED intoxicated c/o abd pain and NBNB vomiting x 2 days, admitted w/ LFT derangements and leukocytosis. Admitted to ICU secondary to discovery of necrotizing pancreatitis. #GI -CT a/p showing diminished perfusion, peripancreatic inflammation and fluid at the tail indicative of necrotizing pancreatitis, additionally distal splenic and proximal portal vein thrombosis -triple phase MRI: pancreatitis with hemorrhagic necrosis of the pancreatic tail , possible splenic vein thrombosis, small L pleural effusion -coagulopathy w/u pending -likely concomitant alcoholic hepatitis -viral hepatitis panels pending -LFTs downtrending -NPO -D5LR @ 200 -pain management as per ICU team -GI consult -ID consult -Sx consult #ID -fever, leukocytosis, tachycardia and tachypnea all present, therefore presumed sepsis 2/2 necrotizing pancreatitis, additionally meets criteria for acute cholangitis -imipenem 500 q6h -D5LR @ 200 -Tmax 101.4, febrile to 100.5 this AM -WBC 25.6-->18.9 -HR currently 97, RR currently 38 #neuro -lactulose PPx given risk of hepatic encephalopathy #renal -hyponatremia 2/2 potomania, cont IVF -aggressive monitoring and repletion of Mg, K, Phos #toxicology -EtOH intoxication on admission -no withdrawal signs presently -Ativan PPx -cont thiamine, MVI, folate #FEN -D5LR @ 200 -monitor and correct electrolytes, aggressive repletion of K, Mg, Phos -NPO #PPx -DVT: heparin subq -GI: PTX #code -full #dispo -cont to monitor in ICU Visit type - Emergency Visit Emergency Visit: No - New Patient This patient is new to me today: No - Critical Care Critical Care patient: Yes Total Critical Care Time (in minutes): 41 Critical Care Statement: The care of this patient involved high complexity decision making to prevent further life threatening deterioration of the patient 's condition and/or to evaluate & treat vital organ system(s) failure or risk of failure.
[2018-05-11] MEDS: MUPIROCIN 2% TOPICAL OINTMENT FOR DECOLONIZATION NS SCH ×2 (09:01→21:57)
[2018-05-11] MEDS: FOLIC ACID 1 MG TABLET (FP) PO SCH (09:01)
[2018-05-11] MEDS: PANTOPRAZOLE SODIUM 40 MG VIAL IVPUSH SCH (09:02)
[2018-05-11] MEDS: THIAMINE HCL 100 MG TABLET (FP) PO SCH (09:02)
[2018-05-11] MEDS: MULTIVITAMINS (DAILY MVI) TABLET (FP) PO SCH (09:02)
[2018-05-11] MEDS: DEXTROSE 5%-LACTATED RINGERS 1,000 ML IV SCH ×4 (09:28→19:40)
--- NOTE | 2018-05-11 11:35 | PN ---
Progress Note, Physician Chief Complaint: abdominal pain History of Present Illness: 32 yo male PMH EtOH abuse x 15 years, childhood asthma, p/w sudden onset abdominal pain sharp in character x 2 days a/w n/v 3-4 episodes per day (NBNB), and difficulty passing urine (though was able to provide urine in ED after several hours and significant PO hydration). He has been hemodynamically stable since initial evaluation - Current Medication List Current Medications: Active Medications Chlorhexidine Gluconate (Hibiclens For Decolonization -) 1 applic TP HS ON LICENSE OF [facility] Last Admin: 05/10/18 22:25 Dose: 1 applic Folic Acid (Folic Acid -) 1 mg PO DAILY YUSEF Last Admin: 05/11/18 09:01 Dose: 1 mg Heparin Sodium (Porcine) (Heparin -) 5,000 unit SQ TID YUSEF Last Admin: 05/11/18 06:06 Dose: 5,000 unit Dextrose/Lactated Ringer's (D5-Lr -) 1,000 mls @ 200 mls/hr IV ASDIR ON LICENSE OF [facility] Last Admin: 05/11/18 09:28 Dose: 200 mls/hr Imipenem/Cilastatin Sodium 500 (mg/ Sodium Chloride) 100 mls @ 100 mls/hr IVPB Q6H-IV YUSEF; Protocol Last Admin: 05/11/18 09:01 Dose: 100 mls/hr Lactulose (Cephulac (Oral Use)) 20 gm PO Q6H PRN PRN Reason: CONSTIPATION Lorazepam (Ativan Injection -) 2 mg IVPUSH Q4H-IV YUSEF Last Admin: 05/11/18 10:54 Dose: 2 mg Multivitamins/Minerals/Vitamin C (Tab-A-Vit -) 1 tab PO DAILY YUSEF Last Admin: 05/11/18 09:02 Dose: 1 tab Mupirocin (Bactroban Ointment (For Decolonization) -) 1 applic NS BID YUSEF Stop: 05/15/18 21:59 Last Admin: 05/11/18 09:01 Dose: 1 applic Pantoprazole Sodium (Protonix Iv) 40 mg IVPUSH DAILY ON LICENSE OF [facility] Last Admin: 05/11/18 09:02 Dose: 40 mg Thiamine HCl (Vitamin B1 -) 100 mg PO DAILY ON LICENSE OF [facility] Last Admin: 05/11/18 09:02 Dose: 100 mg - Objective Vital Signs: Vital Signs Temperature 100.3 F H 05/11/18 10:00 Pulse Rate 97 H 05/11/18 10:00 Respiratory Rate 37 H 05/11/18 10:00 Blood Pressure 108/71 05/11/18 10:00 O2 Sat by Pulse Oximetry (%) 97 05/11/18 08:00 Constitutional: Yes: Well Nourished, No Distress, Calm Eyes: Yes: Conjunctiva Clear, EOM Intact HENT: Yes: Atraumatic, Normocephalic Neck: Yes: Supple, Trachea Midline Cardiovascular: Yes: Regular Rate and Rhythm, S1, S2. No: Tachycardia, Pulse Irregular Respiratory: Yes: Regular, CTA Bilaterally Gastrointestinal: Yes: Normal Bowel Sounds, Soft, Abdomen, Obese, Tenderness, Tenderness, Epigastrium. No: Distention, Hepatomegaly, Hypoactive Bowel Sounds Genitourinary: No: CVA Tenderness - Left, CVA Tenderness - Right Breast(s): No: Breast Implants, Mass, Nipple Inversion Musculoskeletal: No: Joint Stiffness, Muscle Weakness Extremities: No: Cool, Cyanosis Edema: No Peripheral Pulses WNL: Yes Peripheral Pulses: Left Radial: 2+, Right Radial: 2+, Left Doralis Pedis: 2+, Right Dorsalis Pedis: 2+, Left Femoral: 2+, Right Femoral: 2+ Integumentary: No: Jaundice, Laceration, Rash, Skin Tear Neurological: Yes: Alert, Oriented Psychiatric: Yes: Alert, Oriented Labs: CBC, BMP 05/11/18 05:30 05/11/18 05:30 INR, PTT INR 1.00 (0.83-1.09) 05/08/18 14:48 Problem List - Problems (1) Pancreatitis, alcoholic, acute Assessment/Plan: 32yo male MMP with acute alcoholic necrotic pancreatitis, no need for acute surgical intervention. ICU care/ maximum medical management Strict NPO and IVF hydration empiric IV antibiotics trend labs Consider CT guided aspiration if he continues to worsen clinically to see if there is bacteria present in the necrosis will follow This patient is critically ill. Time spent reviewing chart, examining patient, talking with providers and/or family and documentation is XX minutes. Code(s): K85.20 - ALCOHOL INDUCED ACUTE PANCREATITIS WITHOUT NECROSIS OR INFCT Qualifiers: Acute pancreatitis complication: uninfected necrosis Qualified Code(s): K85.21 - Alcohol induced acute pancreatitis with uninfected necrosis (2) Pancreatitis, necrotizing Code(s): K85.91 - ACUTE PANCREATITIS WITH UNINFECTED NECROSIS, UNSPECIFIED (3) Alcohol withdrawal Code(s): F10.239 - ALCOHOL DEPENDENCE WITH WITHDRAWAL, UNSPECIFIED Qualifiers: Complication of substance-induced condition: uncomplicated Qualified Code(s ): F10.230 - Alcohol dependence with withdrawal, uncomplicated (4) Alcoholic liver disease Code(s): K70.9 - ALCOHOLIC LIVER DISEASE, UNSPECIFIED (5) Transaminitis Code(s): R74.0 - NONSPEC ELEV OF LEVELS OF TRANSAMNS & LACTIC ACID DEHYDRGNSE (6) Vomiting Code(s): R11.10 - VOMITING, UNSPECIFIED
--- NOTE | 2018-05-11 11:49 | PN ---
Teaching Attending Note Name of Resident: Juan José Wooten ATTENDING PHYSICIAN STATEMENT I saw and evaluated the patient. I reviewed the resident's note and discussed the case with the resident. I agree with the resident's findings and plan as documented. SUBJECTIVE: Patient seen and examined in the ICU. Awake and alert. Reports abdominal pain. Slightly tremulous. Denies CP or SOB. Results of MRI are pending. Intake & Output 05/08/18 05/09/18 05/10/18 05/11/18 23:59 23:59 23:59 23:59 Intake Total 1250 3225 2368 Output Total 1175 3350 1350 Balance 75 -125 1018 Weight 170 lb 187 lb 186 lb 1.122 oz 182 lb 14.4 oz Last Vital Signs Temp Pulse Resp BP Pulse Ox 100.3 F H 97 H 37 H 108/71 97 05/11/18 10:00 05/11/18 10:00 05/11/18 10:00 05/11/18 10:00 05/11/18 08:00 Active Medications Chlorhexidine Gluconate (Hibiclens For Decolonization -) 1 applic TP HS YUSEF Last Admin: 05/10/18 22:25 Dose: 1 applic Folic Acid (Folic Acid -) 1 mg PO DAILY YUSEF Last Admin: 05/11/18 09:01 Dose: 1 mg Heparin Sodium (Porcine) (Heparin -) 5,000 unit SQ TID YUSEF Last Admin: 05/11/18 06:06 Dose: 5,000 unit Dextrose/Lactated Ringer's (D5-Lr -) 1,000 mls @ 200 mls/hr IV ASDIR YUSEF Last Admin: 05/11/18 09:28 Dose: 200 mls/hr Imipenem/Cilastatin Sodium 500 (mg/ Sodium Chloride) 100 mls @ 100 mls/hr IVPB Q6H-IV YUSEF; Protocol Last Admin: 05/11/18 09:01 Dose: 100 mls/hr Lactulose (Cephulac (Oral Use)) 20 gm PO Q6H PRN PRN Reason: CONSTIPATION Lorazepam (Ativan Injection -) 2 mg IVPUSH Q4H-IV YUSEF Last Admin: 05/11/18 10:54 Dose: 2 mg Multivitamins/Minerals/Vitamin C (Tab-A-Vit -) 1 tab PO DAILY YUSEF Last Admin: 05/11/18 09:02 Dose: 1 tab Mupirocin (Bactroban Ointment (For Decolonization) -) 1 applic NS BID [facility] Stop: 05/15/18 21:59 Last Admin: 05/11/18 09:01 Dose: 1 applic Pantoprazole Sodium (Protonix Iv) 40 mg IVPUSH DAILY [facility] Last Admin: 05/11/18 09:02 Dose: 40 mg Thiamine HCl (Vitamin B1 -) 100 mg PO DAILY [facility] Last Admin: 05/11/18 09:02 Dose: 100 mg GENERAL: A&Ox3, mild distress EYES: PERRLA, EOMI, sclera mildly icteric ENT: Moist mucus membranes, no exudates noted NECK: No JVD, no lymphadenopathy LUNGS: CTA, no wheezes, rhales or ronchi HEART: mildly tachycardic, no murmurs noted on exam ABDOMEN: Soft, tender to palpation in the LUQ and RUQ MUSCULOSKELETAL: No CVA Tenderness EXTREMITIES: 2+ pulses, no edema. 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: Non-focal Laboratory Results - last 24 hr 05/11/18 05/11/18 05/11/18 05:30 05:30 05:30 WBC 18.9 H RBC 3.62 L Hgb 12.2 Hct 34.5 L MCV 95.3 MCH 33.8 H MCHC 35.5 RDW 14.1 Plt Count 135 MPV 7.5 Absolute Neuts (auto) 15.8 H Neutrophils % 83.9 H Lymphocytes % 8.5 D Monocytes % 7.2 Eosinophils % 0.2 D Basophils % 0.2 Nucleated RBC % 0 Sodium 132 L Potassium 3.2 L Chloride 101 Carbon Dioxide 23 Anion Gap 8 BUN 4 L Creatinine 0.7 Creat Clearance w eGFR > 60 Random Glucose 115 H Calcium 7.6 L Phosphorus 2.0 L Magnesium 2.1 Total Bilirubin 2.1 H Direct Bilirubin 0.9 H AST 65 H ALT 36 Alkaline Phosphatase 119 H C-Reactive Protein 36.0 H Total Protein 6.1 L Albumin 2.6 L Triglycerides 239 H 05/11/18 05:30 WBC RBC Hgb Hct MCV MCH MCHC RDW Plt Count MPV Absolute Neuts (auto) Neutrophils % Lymphocytes % Monocytes % Eosinophils % Basophils % Nucleated RBC % Sodium Potassium Chloride Carbon Dioxide Anion Gap BUN Creatinine Creat Clearance w eGFR Random Glucose Calcium Phosphorus Cancelled Magnesium Cancelled Total Bilirubin Direct Bilirubin AST ALT Alkaline Phosphatase C-Reactive Protein Total Protein Albumin Triglycerides ASSESSMENT/PLAN: Severe Pancreatitis with necrosis Alcohol abuse Sepsis R/O ETOH withdrawal Suspected Splenic vein thrombosis Aggressive IVF ABX per ID Follow cultures Ativan PRN CIWA Will need to consider enteral feeds within the next 48 hours Check MRI VTE prophylaxis O2 as needed: need to monitor for ARDS If (+) thrombosis: will need to consider AC ICU monitoring due to tenuous overall status Dr Doan - Critical Care Critical Care patient: Yes Total Critical Care Time (in minutes): 40 Critical Care Statement: The care of this patient involved high complexity decision making to prevent further life threatening deterioration of the patient 's condition and/or to evaluate & treat vital organ system(s) failure or risk of failure.
--- NOTE | 2018-05-11 13:53 | PN ---
Progress Note (short form) - Note Progress Note: low grade fevers midepigastric pain no vomiting Vital Signs Period Temp Pulse Resp BP Sys/Mon[place] Pulse Ox Last 24 Hr 98.6 F-101.4 F 83-104 18-38 94-137/48-84 95-97 cor-rrr lungs decreased bs at bases abd soft, midepigastric fullness and tenderness to palpation ext no edema CBC, BMP 05/11/18 05:30 05/11/18 05:30 Microbiology 05/10/18 06:00 Blood - Peripheral Venous Blood Culture - Preliminary NO GROWTH OBTAINED AFTER 24 HOURS, INCUBATION TO CONTINUE FOR 4 DAYS. 05/10/18 05:56 Blood - Peripheral Venous Blood Culture - Preliminary NO GROWTH OBTAINED AFTER 24 HOURS, INCUBATION TO CONTINUE FOR 4 DAYS. 05/08/18 14:48 Urine - Urine Clean Catch Urine Culture - Final NO GROWTH OBTAINED a/p fevers ?biliary sepsis ?necrotizingpancreatitis ?splenic vein thrombosis blood cultures IVF imipenem 500 q6h MRCP/MRI- r/o choledocholithiasis-awaiting results GI and surgery f/u ongoing Problem List - Problems (1) Fever Code(s): R50.9 - FEVER, UNSPECIFIED (2) Alcoholic liver disease Code(s): K70.9 - ALCOHOLIC LIVER DISEASE, UNSPECIFIED (3) Pancreatitis, necrotizing Code(s): K85.91 - ACUTE PANCREATITIS WITH UNINFECTED NECROSIS, UNSPECIFIED
[2018-05-11 14:40] LABS: INR 1.03 (0.83-1.09); PROTHROMBIN TIME (PATIENT) 12.2 SEC (9.7-13.0)
--- NOTE | 2018-05-11 14:58 | PN ---
GI Progress Note Subjective: No acute events Patient states that pain is the same as yesterday - Objective Vital Signs: Vital Signs Temperature 100.2 F H 05/11/18 14:00 Pulse Rate 75 05/11/18 14:00 Respiratory Rate 33 H 05/11/18 14:00 Blood Pressure 110/73 05/11/18 14:00 O2 Sat by Pulse Oximetry (%) 97 05/11/18 08:00 Constitutional: Calm Eyes: No: Sclera Icterus Cardiovascular: Yes: Regular Rate and Rhythm Respiratory: Yes: CTA Bilaterally Gastrointestinal Inspection: No: Distention ...Auscultate: Yes: Normoactive Bowel Sounds ...Palpate: Yes: Soft, Tenderness (Mild TTP left upper abdomen and left abdomen) ...Percussion: No: Tympanitic Edema: No (No LE edema) Neurological: Yes: Alert Labs: CBC, BMP 05/11/18 05:30 05/11/18 05:30 INR, PTT INR 1.03 (0.83-1.09) 05/11/18 14:00 Fibrinogen > 500.0 mg/dL (238-498) H 05/11/18 14:00 Hepatic Panel Total Bilirubin 2.1 mg/dL (0.2-1) H 05/11/18 05:30 Direct Bilirubin 0.9 mg/dL (0.0-0.2) H 05/11/18 05:30 AST 65 U/L (15-37) H 05/11/18 05:30 ALT 36 U/L (13-61) 05/11/18 05:30 Alkaline Phosphatase 119 U/L (45-117) H 05/11/18 05:30 Albumin 2.6 g/dl (3.4-5.0) L 05/11/18 05:30 - ....Imaging MRI: Report Reviewed (CBD 4mm, no evidence of choledocholithiasis, pancreatic necrosis at TOP with areas of hemorrhage, splenic vein thrombosis with small collaterals.) Problem List - Problems (1) Pancreatitis, necrotizing Assessment/Plan: Abdominal exam improved today as are his vitals Continue aggressive IV hydration Monitor lytes I's and O's In terms of splenic vein thrombus, collaterals are described. ? if subacute or chronic given findings of collaterals. Will arrange for upper endoscopy =/- post pylori feeding tube placement depending on how he is clinically to exclude gastric varices prior to consideration of anticoagulation. Will also need to be cautious with anticoagulation as there is a hemorrhagic component to his necrotizing pancreatitis. Heme to eval Code(s): K85.91 - ACUTE PANCREATITIS WITH UNINFECTED NECROSIS, UNSPECIFIED
[2018-05-11] MEDS ORDERED: HEPARIN NA (PORCINE) 5,000 UNITS/ML 1ML VIAL IVPUSH PRN ×2 (15:25)
[2018-05-11] MEDS ORDERED: MORPHINE SULFATE 2 MG/ML VIAL IVPUSH PRN (15:44)
[2018-05-11] MEDS: HEPARIN INFUSION - 25,000 UNITS/500 ML INFUS.BAG IVPB SCH (15:44)
--- NOTE | 2018-05-11 16:05 | PN ---
Teaching Attending Note Name of Resident: Simeon Jeffrey ATTENDING PHYSICIAN STATEMENT I saw and evaluated the patient. I reviewed the resident's note and discussed the case with the resident. I agree with the resident's findings and plan as documented. SUBJECTIVE:states his pain has resolved. not hungry. denies CP, SOB, fever, chills, N/V/C/D OBJECTIVE: Last Vital Signs Temp Pulse Resp BP Pulse Ox 100.2 F H 75 33 H 110/73 97 05/11/18 14:00 05/11/18 14:00 05/11/18 14:00 05/11/18 14:00 05/11/18 08:00 General NAD HEENT scleral icterus CV S1 S2 RRR no murmur/rub/gallop Lungs CTA B/L no wheezing/rales/rhonchi ABdomen soft +epigastric tenderness and RUQ tenderness no rebound or guarding extremities no pedal edema ASSESSMENT AND PLAN: 32 year old Male with history of Alcohol Abuse, Childhood Asthma, presents to ED intoxicated, complaining of 2 day history of abdominal pain with nausea/ vomiting (non-bloody, non-bilious), with liver enzyme derangement. 1. Sepsis sec to Possible Acute Necrotic Pancreatitis with Acute Hepatitis ( likely sec to Alcohol) versus Acute Cholangitis- Tm 101.4 leukocytosis trending down. pt appears comfortable. awaiting MRCP to further delineate necrosis and evaluate for choledocholithasis. incrrase IVF to 250cc/H. cont NPO, imipenem and pain control. surgery and GI on board 2. 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 would hold on anticoagulation with hemorrhagic necrosis. hematology consulted. will likely require EGD to r/o varices 3. Acute ETOH intoxication- no signs of withdrawals at this time. estate planning counselor on ETOH abstinence. will d/w about inpatient rehab once medically optimized 4. Hypokalemia- KCl IV runners 5. Hypomagnesemia- Mg IV 6. Hypokalemia- cont IVF 7. DVT Px - Heparin SQ 8. GI Px - PPI 9. MICU monitoring due to severity of pancreatitis The care of this patient involved high complexity decision making to prevent further life threatening deterioration of the patient's condition and/or to evaluate & treat vital organ system(s) failure or risk of failure. 40 mins
--- NOTE | 2018-05-11 17:11 | CONSULT ---
Consult Consult Specialty:: Hematology-Oncology Referred by:: Dr Joce Blood Reason for Consultation:: PVT and SVT - History of Present Illness Chief Complaint: abdominal pain, N&V X 2 days prior to admission History of Present Illness: 32 y/o H male w hx ETOH abuse admitted w mostly left-sided abdominal pains, nausea,vomiting X several days ; pt had high ETOH level 148 , WBC19 , Hgb 17 Plates 262K ,elevated LFT's T. bili 3.8, AST 305 ,ALT 132 ALK 172 INR 1.0; creat 0.9 amylase 119, lipase nl . Pt had mostly L sided tenderness on exam. Initial US abdo showed only prominent CBD and diffuse hepatic steatosis . CT a/ p showed inflammation pancreatic tail w peripancreatic inflammation and fluid ; probable thrombosis distal splenic vein and proximal portal vein.An MRI abdo confirmed changes c/w pancreatitis and splenic vein thrombosis, small L pleural effusion . CXR showed L basilar atelectasis ,blunting C-P angle L.Pt developed fever Rx w imipenem ; hydration Pt reportedly had similar symptoms in September , w/u neg at that time . Pt admits to heavy ETOH at least in last 2 years .Pt seen by GI , upper endoscopy ( r/o varices) planned for tomorrow. - History Source History Provided By: Patient, Medical Record Limitations to Obtaining History: Physical Impairment - Past Medical History HEAD OF IT: No: Alzheimer's, CVA, Dementia, Migraine, Multiple Sclerosis, Peripheral Neuropathy, Parkinson's, Seizure, Syncope, TIA, Vertigo, Other Cardio/Vascular: No: AFIB, Aneurysm, Aortic Insufficiency, Aortic Stenosis, CAD , CHF, Deep Vein Thrombosis, HTN, Hyperlipdemia, [place], Mitral Insufficiency, Mitral Stenosis, Murmur, Pulmonary Hypertension, Other Pulmonary: Yes: Asthma. No: Bronchitis, Cancer, COPD, O2 Dependent, Pneumonia, Previously Intubated, Pulmonary Embolus, Pulmonary Fibrosis, Sleep Apnea, Other Gastrointestinal: No: Ascites, Cancer, Constipation, Crohn's Disease, Diverticulitis, Diverticulosis, Esophageal Varices, Gastritis, GERD, GI Bleed, Hemorrhoids, Hiatal Hernia, Inflamatory Bowel Disease, Irritable Bowel Disease, Pancreatitis, Peptic Ulcer Disease, Ulcerative Colitis, Other Hepatobiliary: No: Cirrhosis, Cholelithiasis, Cholecystitis, Choledocholithiasis , Hepatitis A, Hepatitis B, Hepatitis C, Other Renal/: No: Renal Failure, Renal Inusuff, BPH, Cancer, Hematuria, Hemodialysis , Neurogenic Bladder, Renal Calculi, UTI, Other Heme/Onc: No: Anemia, B12 Deficiency, Bleeding Disorder, Cancer, Current Chemotherapy, Current Radiation Therapy, Hemochromatosis, Hypercoaguable State, Myeloproliferative Synd, Sickle Cell Disease, Sickle Cell Trait, Thrombocytopenia, Other Infectious Disease: No: AIDS, C-Diff, Herpes Zoster, HIV, MRSA, STD's, Tuberculosis, VREF, Other Psych: No: Addictions, Anxiety, Bipolar, Depression, Panic, Psychosis, Schizophrenia, Other Musculoskeletal: No: Bursitis, Chronic low back pain, Hemiparesis, Hemiplegia, Osteoarthritis, Paraplegia, Other Rheumatology: No: Fibromyalgia, Gout, Lupus, Rheumatoid Arthritis, Sarcoidosis, Vasculitis, Other ENT: No: Allergic Rhinitis, Sinusitis, Other Endocrine: No: Segundo's Disease, Kris's Disease, Diabetes Insipidus, Diabetes Mellitus, Hyperparathyroidism, Hyperthyroidism, Hypothyroidism, Osteopenia, SIADH, Other - Past Surgical History Past Surgical History: Yes: None - Alcohol/Substance Use Hx Alcohol Use: Yes - Smoking History Smoking history: Never smoked Have you smoked in the past 12 months: No - Social History Usual Living Arrangement: Alone History of Recent Travel: Yes Home Medications - Allergies Allergies/Adverse Reactions: Allergies Allergy/AdvReac Type Severity Reaction Status Date / Time No Known Allergies Allergy Verified 05/08/18 13:32 - Home Medications Home Medications: Ambulatory Orders NK [No Known Home Medication] 05/08/18 Family Disease History - Family Disease History Family History: Unremarkable Other Family History: no hx bleeding, clotting problems, cancer Review of Systems - Review of Systems Constitutional: reports: Fever, Loss of Appetite, Malaise, Weakness Eyes: reports: No Symptoms HENT: reports: No Symptoms Neck: reports: No Symptoms Cardiovascular: reports: No Symptoms Respiratory: reports: No Symptoms Gastrointestinal: reports: Abdominal Pain, Bloating, Melena Genitourinary: reports: No Symptoms Breasts: reports: No Symptoms Reported Musculoskeletal: reports: No Symptoms Integumentary: reports: No Symptoms Neurological: reports: No Symptoms Endocrine: reports: No Symptoms Hematology/Lymphatic: reports: No Symptoms Psychiatric: reports: No Symptoms Physical Exam Vital Signs: Vital Signs Temperature 100.0 F H 05/11/18 16:00 Pulse Rate 80 05/11/18 16:00 Respiratory Rate 33 H 05/11/18 16:00 Blood Pressure 108/72 05/11/18 16:00 O2 Sat by Pulse Oximetry (%) 97 05/11/18 08:00 Constitutional: Yes: Well Nourished, No Distress, Calm Eyes: Yes: WNL, Conjunctiva Clear, EOM Intact HENT: Yes: WNL, Atraumatic, Normocephalic Neck: Yes: WNL, Supple, Trachea Midline Cardiovascular: Yes: WNL, Regular Rate and Rhythm Respiratory: Yes: WNL, Regular, CTA Bilaterally Gastrointestinal: Yes: WNL, Normal Bowel Sounds, Soft. No: Abdomen, Obese, Ascites, Distention, Hematemesis, Hemorrhoids, Hepatomegaly, Hernia, Hyperactive Bowel Sounds, Hypoactive Bowel Sounds, Melena, Palpable Mass, Pulsatile Mass, Rectal Bleeding, Splenomegaly, Tenderness, Tenderness, Epigastrium, Tenderness, Rebound, Vomiting, Other Breast(s): Yes: WNL Musculoskeletal: Yes: WNL Extremities: Yes: WNL Edema: LUE: Trace, RUE: Trace Labs: CBC, BMP 05/11/18 05:30 05/11/18 05:30 Problem List - Problems (1) Thrombosis, portal vein Code(s): I81 - PORTAL VEIN THROMBOSIS (2) Splenic vein thrombosis Code(s): I82.890 - ACUTE EMBOLISM AND THROMBOSIS OF OTHER SPECIFIED VEINS (3) Pancreatitis, necrotizing Code(s): K85.91 - ACUTE PANCREATITIS WITH UNINFECTED NECROSIS, UNSPECIFIED Assessment/Plan 32 y/o male w acute/chronic ETOH abuse admitted for abdo. pain , prob due to panceatitis (NPO,iv fluids, empirical and started on a low dose heparin drip. ; also found to have splenic vein and portal vein thrombosis by imaging, probably due to ETOH liver disease and acute pancreatitis. . Fibrinogen > 500.Pt scheduled for upper endoscopy to r/o varices and Rx if present . There is risk a of bleeding, rloando since there is small focus of hemorrhagic necrosis within the area of pancreatitis. The benefits include stopping the extension of thrombosis and potential recanalization.To follow pt closely for signs of bleeding. There may be associated prothrombotic state in liver patients such as decreased Protein C , high FVIII, fibrinolysis defect , or dysfibrinogenemia. A hypercoag state w/u already initiated but results will not likely be readily available.Eventually change dose heparin drip to coumadin (keep on lower end of therapeutic) , possibly X 6 months or longer depending on response and hypercoag w/u. Need to re-image pancreas in near future to r/o underlying tumor.
[2018-05-11] MEDS: CHLORHEXIDINE GLUCONATE 4% CLEANSER FOR DECOLONIZATION TP SCH (21:57)
[2018-05-12] MEDS: LORazepam 2 MG/ML SDV VIAL IVPUSH SCH ×2 (02:17→06:50)
[2018-05-12] MEDS ORDERED: PT OWN MED DRAWER 7, Y5N ONE ×4 (03:14→22:27)
[2018-05-12] MEDS: IMIPENEM/CILASTATIN SODIUM 500 MG in SODIUM CHLORIDE 100 ML IVPB SCH ×4 (03:19→22:52)
[2018-05-12 04:18] LABS: HEP.C VIRUS AB 0.2 s/co ratio (0.0-0.9)
[2018-05-12 05:55] LABS: HEMATOCRIT 35.5 % (35.4-49); HEMOGLOBIN 12.5 GM/dL (11.7-16.9); MCH 33.9 pg (25.7-33.7); MCHC 35.1 g/dl (32.0-35.9); MEAN CELL VOLUME 96.8 fl (80-96); MEAN PLT VOLUME 7.8 fl (7.5-11.1); PLATELET COUNT 161 K/MM3 (134-434); RBC 3.67 M/mm3 (4.00-5.60); RDW 14.1 % (11.9-15.9); WHITE BLOOD COUNT 13.4 K/mm3 (4.0-10.0)
[2018-05-12 06:33] LABS: ALBUMIN 2.5 g/dl (3.4-5.0); ALK PHOS 137 U/L (45-117); ANION GAP 8 MMOL/L (8-16); BILIRUBIN,TOTAL 0.8 mg/dL (0.2-1); BLOOD UREA NITROGEN 4 mg/dL (7-18); CALCIUM 7.9 mg/dL (8.5-10.1); CHLORIDE 104 mmol/L (98-107); CO2 25 mmol/L (21-32); CREATININE 0.6 mg/dL (0.55-1.3); GLUCOSE,RANDOM 87 mg/dL (74-106); MAGNESIUM 2.1 mg/dL (1.8-2.4); PHOSPHOROUS 3.1 mg/dL (2.5-4.9); POTASSIUM 3.6 mmol/L (3.5-5.1); SGOT/AST 89 U/L (15-37); SGPT/ALT 47 U/L (13-61); SODIUM 137 mmol/L (136-145); TOT PROT 6.4 g/dl (6.4-8.2)
[2018-05-12] MEDS ORDERED: LACTULOSE 20 GM/30 ML UDC (FOR ORAL USE ONLY) PO PRN ×2 (06:36→14:50)
[2018-05-12] MEDS: HEPARIN INFUSION - 25,000 UNITS/500 ML INFUS.BAG IVPB SCH ×2 (06:51→18:00)
[2018-05-12] MEDS ORDERED: LORazepam 2 MG/ML SDV VIAL IVPUSH PRN ×2 (07:15→14:50)
--- NOTE | 2018-05-12 08:56 | PN ---
Physical Exam: SUBJECTIVE: Patient seen and examined at bedside in ICU. Affirms pain improving , no further nausea/vomiting. OBJECTIVE: Vital Signs Period Temp Pulse Resp BP Sys/[place] Pulse Ox Last 24 Hr 98 F-100.3 F 70-97 16-37 90-124/54-86 97 GENERAL: A&Ox3, no signs of withdrawal HEENT: NC/AT, PERRLA, EOMI, scleral icterus resolved, MMM NECK: Normal range of motion, supple without lymphadenopathy, JVD, or masses. LUNGS: CTA b/l HEART: RRR no m/r/g ABDOMEN: +bs, mildly distended, tympanitic, improving TTP in LUQ and LLQ, no TTP in RUQ, no Solis's sign LOWER EXTREMITIES: 2+ pulses, warm, well-perfused. No calf tenderness. No peripheral edema. 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: multiple drum sander helper, motor, sensory systems w/o focal defect SKIN: jaundice clearing Laboratory Results - last 24 hr 05/08/18 05/10/18 05/11/18 05:30 15:30 05:30 WBC RBC Hgb Hct MCV MCH MCHC RDW Plt Count MPV PT with INR INR PTT (Actin FS) Fibrinogen D-Dimer Sodium Potassium Chloride Carbon Dioxide Anion Gap BUN Creatinine Creat Clearance w eGFR POC Glucometer Random Glucose Calcium Phosphorus Magnesium Total Bilirubin Direct Bilirubin AST ALT Alkaline Phosphatase Total Protein Albumin Triglycerides Hepatitis A IgM Ab Negative Hep Bs Antigen Negative Hep B Core IgM Ab Negative Hepatitis C Antibody 0.2 HIV 1&2 Antibody Screen Negative HIV P24 Antigen Negative Blood Type O POSITIVE 05/11/18 05/11/18 05/11/18 05:30 13:27 14:00 WBC RBC Hgb Hct MCV MCH MCHC RDW Plt Count MPV PT with INR 12.20 INR 1.03 PTT (Actin FS) 31.0 Fibrinogen D-Dimer Sodium Potassium Chloride Carbon Dioxide Anion Gap BUN Creatinine Creat Clearance w eGFR POC Glucometer 126 Random Glucose Calcium Phosphorus 2.0 L Magnesium 2.1 Total Bilirubin 2.1 H Direct Bilirubin 0.9 H AST 65 H ALT 36 Alkaline Phosphatase 119 H Total Protein 6.1 L Albumin 2.6 L Triglycerides 239 H Hepatitis A IgM Ab Hep Bs Antigen Hep B Core IgM Ab Hepatitis C Antibody HIV 1&2 Antibody Screen HIV P24 Antigen Blood Type 05/11/18 05/11/18 05/12/18 14:00 21:30 05:30 WBC 13.4 H RBC 3.67 L Hgb 12.5 Hct 35.5 MCV 96.8 H MCH 33.9 H MCHC 35.1 RDW 14.1 Plt Count 161 MPV 7.8 PT with INR INR PTT (Actin FS) 41.6 H Fibrinogen > 500.0 H D-Dimer 3759 H Sodium Potassium Chloride Carbon Dioxide Anion Gap BUN Creatinine Creat Clearance w eGFR POC Glucometer Random Glucose Calcium Phosphorus Magnesium Total Bilirubin Direct Bilirubin AST ALT Alkaline Phosphatase Total Protein Albumin Triglycerides Hepatitis A IgM Ab Hep Bs Antigen Hep B Core IgM Ab Hepatitis C Antibody HIV 1&2 Antibody Screen HIV P24 Antigen Blood Type 05/12/18 05/12/18 05:30 05:30 WBC RBC Hgb Hct MCV MCH MCHC RDW Plt Count MPV PT with INR INR PTT (Actin FS) 39.0 H Fibrinogen D-Dimer Sodium 137 Potassium 3.6 Chloride 104 Carbon Dioxide 25 Anion Gap 8 BUN 4 L Creatinine 0.6 Creat Clearance w eGFR > 60 POC Glucometer Random Glucose 87 Calcium 7.9 L Phosphorus 3.1 Magnesium 2.1 Total Bilirubin 0.8 Direct Bilirubin AST 89 H ALT 47 Alkaline Phosphatase 137 H Total Protein 6.4 Albumin 2.5 L Triglycerides Hepatitis A IgM Ab Hep Bs Antigen Hep B Core IgM Ab Hepatitis C Antibody HIV 1&2 Antibody Screen HIV P24 Antigen Blood Type Active Medications Generic Name Dose Route Start Last Admin Trade Name Freq PRN Reason Stop Dose Admin Chlorhexidine Gluconate 1 applic 05/10/18 22:00 05/11/18 21:57 Hibiclens For Decolonization - TP 1 applic HS YUSEF Administration Folic Acid 1 mg 05/12/18 10:00 Folic Acid - PO DAILY YUSEF Heparin Sodium (Porcine) 1,000 unit 05/11/18 15:25 05/11/18 23:08 Heparin - IVPUSH 1,000 unit PRN PRN Administration Heparin Heparin Sodium (Porcine) 5,000 unit 05/11/18 15:25 05/12/18 06:48 Heparin - IVPUSH 5,000 unit PRN PRN Administration Heparin Dextrose/Lactated Ringer's 1,000 mls @ 250 mls/hr 05/11/18 12:53 05/11/18 19: 40 D5-Lr - IV 250 mls/hr ASDIR YUSEF Administration Heparin Sodium/Dextrose 25,000 units in 500 mls @ 20 mls/hr 05/11/18 15:30 06:51 Heparin Infusion - IVPB 1,250 units/hr TITR YUSEF 25 mls/hr Administration Protocol 1,000 UNITS/HR Imipenem/Cilastatin Sodium 500 100 mls @ 100 mls/hr 05/12/18 09:00 mg/ Sodium Chloride IVPB Q6H-IV YUSEF Protocol Lactulose 20 gm 05/12/18 06:36 Cephulac (Oral Use) PO Q6H PRN CONSTIPATION Lorazepam 2 mg 05/12/18 07:15 Ativan Injection - IVPUSH Q4H-IV PRN agitation/withdrawal Morphine Sulfate 2 mg 05/11/18 15:44 05/12/18 06:09 Morphine Sulfate IVPUSH 2 mg Q4H PRN Administration PAIN LEVEL 7 - 10 Multivitamins/Minerals/Vitamin C 1 tab 05/12/18 10:00 Tab-A-Vit - PO DAILY YUSEF Mupirocin 1 applic 05/10/18 22:00 05/11/18 21:57 Bactroban Ointment (For Decolonization) - NS 05/15/18 21:59 1 applic BID YUSEF Administration Pantoprazole Sodium 40 mg 05/12/18 10:00 Protonix Iv IVPUSH DAILY YUSEF Thiamine HCl 100 mg 05/12/18 10:00 Vitamin B1 - PO DAILY [facility] ASSESSMENT/PLAN: 32 y/o M w/ PMHx EtOH abuse x 15 years, childhood asthma, presented to ED intoxicated c/o abd pain and NBNB vomiting x 2 days, admitted w/ LFT derangements and leukocytosis. Admitted to ICU secondary to discovery of necrotizing pancreatitis. #GI -CT a/p showing diminished perfusion, peripancreatic inflammation and fluid at the tail indicative of necrotizing pancreatitis, additionally distal splenic and proximal portal vein thrombosis -triple phase MRI: pancreatitis with hemorrhagic necrosis of the pancreatic tail , possible splenic vein thrombosis, small L pleural effusion -coagulopathy w/u pending -likely concomitant alcoholic hepatitis -viral hepatitis panels pending -LFTs downtrending, bilirubin normalized -NPO at this time, seek to advance diet following EGD -D5LR @ 250 -for EGD this AM to r/o varices -morphine PRN for pain -GI consult -ID consult -Sx consult #ID -fever, leukocytosis, tachycardia and tachypnea all present, therefore presumed sepsis 2/2 necrotizing pancreatitis, additionally meets criteria for acute cholangitis -imipenem 500 q6h -D5LR @ 250 -Tmax 101.4, febrile to 100.5 this AM -WBC 25.6-->18.9-->13.4 #heme/onc -low dose heparin gtt -will transition to warfarin, target INR low-therapeutic -will need reimaging of pancreas to r/o tumor after acute pancreatitis resolved #neuro -lactulose PPx given risk of hepatic encephalopathy #renal -hyponatremia 2/2 potomania, cont IVF -aggressive monitoring and repletion of Mg, K, Phos #toxicology -EtOH intoxication on admission -no withdrawal signs presently -Ativan PPx -cont thiamine, MVI, folate #FEN -D5LR @ 250 -monitor and correct electrolytes, aggressive repletion of K, Mg, Phos -NPO at this time, seek to advance diet following EGD #PPx -DVT: heparin subq -GI: PTX #code -full #dispo -transfer to med/surg if stable after EGD Visit type - Emergency Visit Emergency Visit: No - New Patient This patient is new to me today: No - Critical Care Critical Care patient: Yes Total Critical Care Time (in minutes): 40 Critical Care Statement: The care of this patient involved high complexity decision making to prevent further life threatening deterioration of the patient 's condition and/or to evaluate & treat vital organ system(s) failure or risk of failure.
[2018-05-12] MEDS: MUPIROCIN 2% TOPICAL OINTMENT FOR DECOLONIZATION NS SCH (09:15)
[2018-05-12] MEDS ORDERED: THIAMINE HCL 100 MG TABLET (FP) PO SCH (10:00)
[2018-05-12] MEDS ORDERED: LORazepam 2 MG/ML SDV VIAL IVPUSH SCH (10:00)
[2018-05-12] MEDS ORDERED: PANTOPRAZOLE SODIUM 40 MG VIAL IVPUSH SCH (10:00)
[2018-05-12] MEDS ORDERED: FOLIC ACID 1 MG TABLET (FP) PO SCH (10:00)
[2018-05-12] MEDS ORDERED: MULTIVITAMINS (DAILY MVI) TABLET (FP) PO SCH (10:00)
--- NOTE | 2018-05-12 10:11 | PN ---
Teaching Attending Note Name of Resident: Juan José Wooten ATTENDING PHYSICIAN STATEMENT I saw and evaluated the patient. I reviewed the resident's note and discussed the case with the resident. I agree with the resident's findings and plan as documented. SUBJECTIVE: Patient seen and examined in the ICU. Awake and alert. Reports less abdominal pain. Not tremulous. Denies CP or SOB. For upper endoscopic evaluation today. Intake & Output 05/09/18 05/10/18 05/11/18 05/12/18 23:59 23:59 23:59 23:59 Intake Total 1250 3225 5228 3460 Output Total 1175 3350 2600 300 Balance 75 -125 2628 3160 Weight 187 lb 186 lb 1.122 oz 182 lb 181 lb 3.2 oz Last Vital Signs Temp Pulse Resp BP Pulse Ox 98.3 F 73 23 H 124/76 97 05/12/18 06:00 05/12/18 08:00 05/12/18 08:00 05/12/18 08:00 05/11/18 21:00 Active Medications Chlorhexidine Gluconate (Hibiclens For Decolonization -) 1 applic TP HS YUSEF Last Admin: 05/11/18 21:57 Dose: 1 applic Folic Acid (Folic Acid -) 1 mg PO DAILY YUSEF Last Admin: 05/12/18 09:14 Dose: 1 mg Heparin Sodium (Porcine) (Heparin -) 1,000 unit IVPUSH PRN PRN PRN Reason: Heparin Last Admin: 05/11/18 23:08 Dose: 1,000 unit Heparin Sodium (Porcine) (Heparin -) 5,000 unit IVPUSH PRN PRN PRN Reason: Heparin Last Admin: 05/12/18 06:48 Dose: 5,000 unit Dextrose/Lactated Ringer's (D5-Lr -) 1,000 mls @ 250 mls/hr IV ASDIR YUSEF Last Admin: 05/11/18 19:40 Dose: 250 mls/hr Heparin Sodium/Dextrose (Heparin Infusion -) 25,000 units in 500 mls @ 20 mls/ hr IVPB TITR YUSEF; Protocol Last Titration: 05/12/18 08:59 Dose: 0 units/hr, 0 mls/hr Imipenem/Cilastatin Sodium 500 (mg/ Sodium Chloride) 100 mls @ 100 mls/hr IVPB Q6H-IV YUSEF; Protocol Last Admin: 05/12/18 09:06 Dose: 100 mls/hr Lactulose (Cephulac (Oral Use)) 20 gm PO Q6H PRN PRN Reason: CONSTIPATION Lorazepam (Ativan Injection -) 2 mg IVPUSH Q4H-IV PRN PRN Reason: agitation/withdrawal Morphine Sulfate (Morphine Sulfate) 2 mg IVPUSH Q4H PRN PRN Reason: PAIN LEVEL 7 - 10 Last Admin: 05/12/18 06:09 Dose: 2 mg Multivitamins/Minerals/Vitamin C (Tab-A-Vit -) 1 tab PO DAILY [facility] Last Admin: 05/12/18 09:15 Dose: 1 tab Mupirocin (Bactroban Ointment (For Decolonization) -) 1 applic NS BID [facility] Stop: 05/15/18 21:59 Last Admin: 05/12/18 09:15 Dose: 1 applic Pantoprazole Sodium (Protonix Iv) 40 mg IVPUSH DAILY [facility] Last Admin: 05/12/18 09:14 Dose: 40 mg Thiamine HCl (Vitamin B1 -) 100 mg PO DAILY [facility] Last Admin: 05/12/18 09:15 Dose: 100 mg GENERAL: A&Ox3, more comfortable EYES: PERRLA, EOMI, sclera less icteric ENT: Moist mucus membranes, no exudates noted NECK: No JVD, no lymphadenopathy LUNGS: CTA, no wheezes, rhales or ronchi HEART: mildly tachycardic, no murmurs noted on exam ABDOMEN: Soft, less tender to palpation MUSCULOSKELETAL: No CVA Tenderness EXTREMITIES: 2+ pulses, no edema. 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: Non-focal Laboratory Results - last 24 hr 05/08/18 05/10/18 05/11/18 05:30 15:30 05:30 WBC RBC Hgb Hct MCV MCH MCHC RDW Plt Count MPV PT with INR INR PTT (Actin FS) Fibrinogen D-Dimer Sodium Potassium Chloride Carbon Dioxide Anion Gap BUN Creatinine Creat Clearance w eGFR POC Glucometer Random Glucose Calcium Phosphorus Magnesium Total Bilirubin Direct Bilirubin AST ALT Alkaline Phosphatase Total Protein Albumin Triglycerides Hepatitis A IgM Ab Negative Hep Bs Antigen Negative Hep B Core IgM Ab Negative Hepatitis C Antibody 0.2 HIV 1&2 Antibody Screen Negative HIV P24 Antigen Negative Blood Type O POSITIVE 05/11/18 05/11/18 05/11/18 05:30 13:27 14:00 WBC RBC Hgb Hct MCV MCH MCHC RDW Plt Count MPV PT with INR 12.20 INR 1.03 PTT (Actin FS) 31.0 Fibrinogen D-Dimer Sodium Potassium Chloride Carbon Dioxide Anion Gap BUN Creatinine Creat Clearance w eGFR POC Glucometer 126 Random Glucose Calcium Phosphorus 2.0 L Magnesium 2.1 Total Bilirubin 2.1 H Direct Bilirubin 0.9 H AST 65 H ALT 36 Alkaline Phosphatase 119 H Total Protein 6.1 L Albumin 2.6 L Triglycerides 239 H Hepatitis A IgM Ab Hep Bs Antigen Hep B Core IgM Ab Hepatitis C Antibody HIV 1&2 Antibody Screen HIV P24 Antigen Blood Type 05/11/18 05/11/18 05/12/18 14:00 21:30 05:30 WBC 13.4 H RBC 3.67 L Hgb 12.5 Hct 35.5 MCV 96.8 H MCH 33.9 H MCHC 35.1 RDW 14.1 Plt Count 161 MPV 7.8 PT with INR INR PTT (Actin FS) 41.6 H Fibrinogen > 500.0 H D-Dimer 3759 H Sodium Potassium Chloride Carbon Dioxide Anion Gap BUN Creatinine Creat Clearance w eGFR POC Glucometer Random Glucose Calcium Phosphorus Magnesium Total Bilirubin Direct Bilirubin AST ALT Alkaline Phosphatase Total Protein Albumin Triglycerides Hepatitis A IgM Ab Hep Bs Antigen Hep B Core IgM Ab Hepatitis C Antibody HIV 1&2 Antibody Screen HIV P24 Antigen Blood Type 05/12/18 05/12/18 05:30 05:30 WBC RBC Hgb Hct MCV MCH MCHC RDW Plt Count MPV PT with INR INR PTT (Actin FS) 39.0 H Fibrinogen D-Dimer Sodium 137 Potassium 3.6 Chloride 104 Carbon Dioxide 25 Anion Gap 8 BUN 4 L Creatinine 0.6 Creat Clearance w eGFR > 60 POC Glucometer Random Glucose 87 Calcium 7.9 L Phosphorus 3.1 Magnesium 2.1 Total Bilirubin 0.8 Direct Bilirubin AST 89 H ALT 47 Alkaline Phosphatase 137 H Total Protein 6.4 Albumin 2.5 L Triglycerides Hepatitis A IgM Ab Hep Bs Antigen Hep B Core IgM Ab Hepatitis C Antibody HIV 1&2 Antibody Screen HIV P24 Antigen Blood Type ASSESSMENT/PLAN: Severe Pancreatitis with necrosis Alcohol abuse Sepsis R/O ETOH withdrawal Suspected Splenic vein thrombosis AC IVF ABX per ID Ativan PRN VTE prophylaxis For endoscopic evaluation Floor if otherwise stable after endoscopy Dr Doan
--- NOTE | 2018-05-12 10:20 | PN ---
Progress Note, Physician Chief Complaint: abdominal pain History of Present Illness: 32 yo male PMH EtOH abuse x 15 years, childhood asthma, p/w sudden onset abdominal pain sharp in character x 2 days a/w n/v 3-4 episodes per day (NBNB), and difficulty passing urine (though was able to provide urine in ED after several hours and significant PO hydration). He has been hemodynamically stable since initial evaluation - Current Medication List Current Medications: Active Medications Chlorhexidine Gluconate (Hibiclens For Decolonization -) 1 applic TP HS YUSEF Last Admin: 05/11/18 21:57 Dose: 1 applic Folic Acid (Folic Acid -) 1 mg PO DAILY YUSEF Last Admin: 05/12/18 09:14 Dose: 1 mg Heparin Sodium (Porcine) (Heparin -) 1,000 unit IVPUSH PRN PRN PRN Reason: Heparin Last Admin: 05/11/18 23:08 Dose: 1,000 unit Heparin Sodium (Porcine) (Heparin -) 5,000 unit IVPUSH PRN PRN PRN Reason: Heparin Last Admin: 05/12/18 06:48 Dose: 5,000 unit Dextrose/Lactated Ringer's (D5-Lr -) 1,000 mls @ 250 mls/hr IV ASDIR YUSEF Last Admin: 05/11/18 19:40 Dose: 250 mls/hr Heparin Sodium/Dextrose (Heparin Infusion -) 25,000 units in 500 mls @ 20 mls/ hr IVPB TITR YUSEF; Protocol Last Titration: 05/12/18 08:59 Dose: 0 units/hr, 0 mls/hr Imipenem/Cilastatin Sodium 500 (mg/ Sodium Chloride) 100 mls @ 100 mls/hr IVPB Q6H-IV YUSEF; Protocol Last Admin: 05/12/18 09:06 Dose: 100 mls/hr Lactulose (Cephulac (Oral Use)) 20 gm PO Q6H PRN PRN Reason: CONSTIPATION Lorazepam (Ativan Injection -) 2 mg IVPUSH Q4H-IV PRN PRN Reason: agitation/withdrawal Morphine Sulfate (Morphine Sulfate) 2 mg IVPUSH Q4H PRN PRN Reason: PAIN LEVEL 7 - 10 Last Admin: 05/12/18 06:09 Dose: 2 mg Multivitamins/Minerals/Vitamin C (Tab-A-Vit -) 1 tab PO DAILY YUSEF Last Admin: 05/12/18 09:15 Dose: 1 tab Mupirocin (Bactroban Ointment (For Decolonization) -) 1 applic NS BID [facility] Stop: 05/15/18 21:59 Last Admin: 05/12/18 09:15 Dose: 1 applic Pantoprazole Sodium (Protonix Iv) 40 mg IVPUSH DAILY [facility] Last Admin: 05/12/18 09:14 Dose: 40 mg Thiamine HCl (Vitamin B1 -) 100 mg PO DAILY [facility] Last Admin: 05/12/18 09:15 Dose: 100 mg - Objective Vital Signs: Vital Signs Temperature 98.3 F 05/12/18 06:00 Pulse Rate 73 05/12/18 08:00 Respiratory Rate 23 H 05/12/18 08:00 Blood Pressure 124/76 05/12/18 08:00 O2 Sat by Pulse Oximetry (%) 97 05/11/18 21:00 Vital Signs Period Temp Pulse Resp BP Sys/Montejo Pulse Ox Last 24 Hr 98 F-100.2 F 70-94 16-33 90-124/54-86 97 Intake & Output 05/11/18 05/12/18 05/12/18 23:59 07:59 15:59 Intake Total 2760 3460 Output Total 1250 300 Balance 1510 3160 Weight 182 lb 181 lb 3.2 oz Intake: IV 2760 3260 D5-Lr - 1,000 ml @ 200 1200 mls/hr IV ASDIR YUSEF Rx#: [id number] D5-Lr - 1,000 ml @ 250 1500 3000 mls/hr IV ASDIR [facility] Rx#: [id number] HEPARIN INFUSION - 25,000 60 260 units In 500 ml @ 1,000 UNITS/HR 20 mls/hr IVPB TITR YUSEF Rx#:[id number] IVPB 200 Output: Urine 1250 300 Void 1250 300 Other: Voiding Method Urinal Urinal # Unmeasured Voids Void 2 Bowel Movement No Height 5 ft 10 in Body Mass Index (BMI) 26.1 Weight Measurement Method Built in [facility] Constitutional: Yes: Well Nourished, No Distress, Calm Eyes: Yes: Conjunctiva Clear, EOM Intact HENT: Yes: Atraumatic, Normocephalic Neck: Yes: Supple, Trachea Midline Respiratory: Yes: Regular, CTA Bilaterally Gastrointestinal: Yes: Normal Bowel Sounds, Soft, Distention, Tenderness, Tenderness, Epigastrium. No: Hepatomegaly, Tenderness, Rebound Genitourinary: No: CVA Tenderness - Left, CVA Tenderness - Right Breast(s): No: Nipple Inversion, Skin Changes Musculoskeletal: No: Muscle Pain, Muscle Weakness Extremities: No: Cool, Cyanosis Edema: No Peripheral Pulses WNL: Yes Peripheral Pulses: Left Radial: 2+, Right Radial: 2+, Left Doralis Pedis: 2+, Right Dorsalis Pedis: 2+, Left Femoral: 2+, Right Femoral: 2+ Integumentary: No: Incision, Jaundice, Pressure Ulcer, Rash Neurological: Yes: Alert, Oriented Psychiatric: Yes: Alert, Oriented Labs: CBC, BMP 05/12/18 05:30 05/12/18 05:30 INR, PTT INR 1.03 (0.83-1.09) 05/11/18 14:00 Fibrinogen > 500.0 mg/dL (238-498) H 05/11/18 14:00 Problem List - Problems (1) Pancreatitis, alcoholic, acute Assessment/Plan: 32yo male MMP with acute alcoholic necrotic pancreatitis, no need for acute surgical intervention. ICU care/ maximum medical management Strict NPO and IVF hydration empiric IV antibiotics trend labs Consider CT guided aspiration if he continues to worsen clinically to see if there is bacteria present in the necrosis will follow This patient is critically ill. Time spent reviewing chart, examining patient, talking with providers and/or family and documentation is 35 minutes. This patient is critically ill. Time spent reviewing chart, examining patient, talking with providers and/or family and documentation is XX minutes. Code(s): K85.20 - ALCOHOL INDUCED ACUTE PANCREATITIS WITHOUT NECROSIS OR INFCT Qualifiers: Acute pancreatitis complication: uninfected necrosis Qualified Code(s): K85.21 - Alcohol induced acute pancreatitis with uninfected necrosis (2) Pancreatitis, necrotizing Code(s): K85.91 - ACUTE PANCREATITIS WITH UNINFECTED NECROSIS, UNSPECIFIED (3) Alcohol withdrawal Code(s): F10.239 - ALCOHOL DEPENDENCE WITH WITHDRAWAL, UNSPECIFIED Qualifiers: Complication of substance-induced condition: uncomplicated Qualified Code(s ): F10.230 - Alcohol dependence with withdrawal, uncomplicated (4) Alcoholic liver disease Code(s): K70.9 - ALCOHOLIC LIVER DISEASE, UNSPECIFIED (5) Transaminitis Code(s): R74.0 - NONSPEC ELEV OF LEVELS OF TRANSAMNS & LACTIC ACID DEHYDRGNSE (6) Vomiting Code(s): R11.10 - VOMITING, UNSPECIFIED
--- NOTE | 2018-05-12 10:52 | PN ---
Progress Note (short form) - Note Progress Note: fevers resolved less abdominal pain Vital Signs Period Temp Pulse Resp BP Sys/Montejo Pulse Ox Last 24 Hr 98 F-100.2 F 70-94 16-33 90-124/54-86 97 cor-rrr lungs decreased bs at bases abd soft, mild midepigastric tenderness to palpation ext no edema CBC, BMP 05/12/18 05:30 05/12/18 05:30 Microbiology 05/10/18 06:00 Blood - Peripheral Venous Blood Culture - Preliminary NO GROWTH OBTAINED AFTER 48 HOURS, INCUBATION TO CONTINUE FOR 3 DAYS. 05/10/18 05:56 Blood - Peripheral Venous Blood Culture - Preliminary NO GROWTH OBTAINED AFTER 48 HOURS, INCUBATION TO CONTINUE FOR 3 DAYS. 05/08/18 14:48 Urine - Urine Clean Catch Urine Culture - Final NO GROWTH OBTAINED MRI with pancreatic necrosis of the tail with area of hemorrhage and splenic vein thrombosis Current Medications Chlorhexidine Gluconate (Hibiclens For Decolonization -) 1 applic TP HS YUSEF Last Admin: 05/11/18 21:57 Dose: 1 applic Folic Acid (Folic Acid -) 1 mg PO DAILY YUSEF Last Admin: 05/12/18 09:14 Dose: 1 mg Heparin Sodium (Porcine) (Heparin -) 1,000 unit IVPUSH PRN PRN PRN Reason: Heparin Last Admin: 05/11/18 23:08 Dose: 1,000 unit Heparin Sodium (Porcine) (Heparin -) 5,000 unit IVPUSH PRN PRN PRN Reason: Heparin Last Admin: 05/12/18 06:48 Dose: 5,000 unit Dextrose/Lactated Ringer's (D5-Lr -) 1,000 mls @ 250 mls/hr IV ASDIR YUSEF Last Admin: 05/11/18 19:40 Dose: 250 mls/hr Heparin Sodium/Dextrose (Heparin Infusion -) 25,000 units in 500 mls @ 20 mls/ hr IVPB TITR YUSEF; Protocol Last Titration: 05/12/18 08:59 Dose: 0 units/hr, 0 mls/hr Imipenem/Cilastatin Sodium 500 (mg/ Sodium Chloride) 100 mls @ 100 mls/hr IVPB Q6H-IV YUSEF; Protocol Last Admin: 05/12/18 09:06 Dose: 100 mls/hr Lactulose (Cephulac (Oral Use)) 20 gm PO Q6H PRN PRN Reason: CONSTIPATION Lorazepam (Ativan Injection -) 2 mg IVPUSH Q4H-IV PRN PRN Reason: agitation/withdrawal Morphine Sulfate (Morphine Sulfate) 2 mg IVPUSH Q4H PRN PRN Reason: PAIN LEVEL 7 - 10 Last Admin: 05/12/18 06:09 Dose: 2 mg Multivitamins/Minerals/Vitamin C (Tab-A-Vit -) 1 tab PO DAILY [facility] Last Admin: 05/12/18 09:15 Dose: 1 tab Mupirocin (Bactroban Ointment (For Decolonization) -) 1 applic NS BID [facility] Stop: 05/15/18 21:59 Last Admin: 05/12/18 09:15 Dose: 1 applic Pantoprazole Sodium (Protonix Iv) 40 mg IVPUSH DAILY [facility] Last Admin: 05/12/18 09:14 Dose: 40 mg Thiamine HCl (Vitamin B1 -) 100 mg PO DAILY [facility] Last Admin: 05/12/18 09:15 Dose: 100 mg a/p fevers resolving-clinically improved pancreatic necrosis splenic vein thrombosis blood cultures IVF imipenem 500 q6h day #3 clinically improving GI and surgery f/u ongoing d/w ICU team Problem List - Problems (1) Fever Code(s): R50.9 - FEVER, UNSPECIFIED (2) Alcoholic liver disease Code(s): K70.9 - ALCOHOLIC LIVER DISEASE, UNSPECIFIED (3) Pancreatitis, necrotizing Code(s): K85.91 - ACUTE PANCREATITIS WITH UNINFECTED NECROSIS, UNSPECIFIED
--- NOTE | 2018-05-12 12:38 | PN ---
Teaching Attending Note Name of Resident: Simeon Jeffrey ATTENDING PHYSICIAN STATEMENT I saw and evaluated the patient. I reviewed the resident's note and discussed the case with the resident. I agree with the resident's findings and plan as documented. SUBJECTIVE:asymptomatic. states he is getting hungry. denies CP, SOB, fever, chills, N/V/C/D OBJECTIVE: Last Vital Signs Temp Pulse Resp BP Pulse Ox 98.3 F 73 23 H 124/76 97 05/12/18 06:00 05/12/18 08:00 05/12/18 08:00 05/12/18 08:00 05/11/18 21:00 General NAD CV S1 S2 RRR no murmur/rub/gallop Lungs CTA B/L no wheezing/rales/rhonchi ABdomen soft +epigastric tenderness and RUQ tenderness no rebound or guarding extremities no pedal edema ASSESSMENT AND PLAN: 32 year old Male with history of Alcohol Abuse, Childhood Asthma, presents to ED intoxicated, complaining of 2 day history of abdominal pain with nausea/ vomiting (non-bloody, non-bilious), with liver enzyme derangement. 1. Sepsis sec to Possible Acute Necrotic Pancreatitis with Acute Hepatitis ( likely sec to Alcohol) versus Acute Cholangitis- Tm 100.3 leukocytosis trending down. MRCP showing pancreatic tail with hemorrhagic necrosis.cont NPO, IVF, imipenem day 3 and pain control. surgery, ID and GI on board 2. 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 started on hep ggt. will need minimum 6 months anticoagulation. plan for EGD today to r/o esophageal varices. 3. Acute ETOH intoxication- no signs of withdrawals at this time. certified alcohol counselor on ETOH abstinence. will d/w about inpatient rehab once medically optimized 4. Hypokalemia- resolved 5. Hypomagnesemia- resolved 6. Hypokalemia- resolved 7. DVT Px - Heparin SQ 8. GI Px - PPI 9. MICU monitoring due to severity of pancreatitis The care of this patient involved high complexity decision making to prevent further life threatening deterioration of the patient's condition and/or to evaluate & treat vital organ system(s) failure or risk of failure. 38 mins
[2018-05-12] MEDS: DEXTROSE 5%-LACTATED RINGERS 1,000 ML IV SCH ×4 (13:54→22:51)
[2018-05-12] MEDS ORDERED: HEPARIN NA (PORCINE) 5,000 UNITS/ML 1ML VIAL SQ SCH (14:00)
[2018-05-12] MEDS ORDERED: HEPARIN NA (PORCINE) 5,000 UNITS/ML 1ML VIAL IVPUSH PRN ×4 (14:50)
[2018-05-12] MEDS ORDERED: MORPHINE SULFATE 2 MG/ML VIAL IVPUSH PRN (14:50)
--- NOTE | 2018-05-12 15:32 | PN ---
Physical Exam: SUBJECTIVE: Patient seen and examined OBJECTIVE: Vital Signs Period Temp Pulse Resp BP Sys/Montejo Pulse Ox Last 24 Hr 98 F-100.0 F 70-94 16-33 90-134/54-93 97-97 GENERAL: The patient is awake, alert, and fully oriented, in no acute distress. HEAD: Normal with no signs of trauma. EYES: PERRL, extraocular movements intact, sclera anicteric, conjunctiva clear. No ptosis. ENT: Ears normal, nares patent, oropharynx clear without exudates, moist mucous membranes. NECK: Trachea midline, full range of motion, supple. LUNGS: Breath sounds equal, clear to auscultation bilaterally, no wheezes, no crackles, no accessory muscle use. HEART: Regular rate and rhythm, S1, S2 without murmur, rub or gallop. ABDOMEN: Soft, nontender, nondistended, normoactive bowel sounds, no guarding, no rebound, no hepatosplenomegaly, no masses. EXTREMITIES: 2+ pulses, warm, well-perfused, no edema. 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: Cranial nerves II through XII grossly intact. Normal speech, gait not observed. PSYCH: Normal mood, normal affect. SKIN: Warm, dry, normal turgor, no rashes or lesions noted Laboratory Results - last 24 hr 05/10/18 05/11/18 05/11/18 15:30 14:00 14:00 WBC RBC Hgb Hct MCV MCH MCHC RDW Plt Count MPV PTT (Actin FS) D-Dimer 3759 H Protein S Activity 89 Sodium Potassium Chloride Carbon Dioxide Anion Gap BUN Creatinine Creat Clearance w eGFR Random Glucose Calcium Phosphorus Magnesium Total Bilirubin AST ALT Alkaline Phosphatase Total Protein Albumin Hepatitis A IgM Ab Negative Hep Bs Antigen Negative Hep B Core IgM Ab Negative Hepatitis C Antibody 0.2 05/11/18 05/12/18 05/12/18 21:30 05:30 05:30 WBC 13.4 H RBC 3.67 L Hgb 12.5 Hct 35.5 MCV 96.8 H MCH 33.9 H MCHC 35.1 RDW 14.1 Plt Count 161 MPV 7.8 PTT (Actin FS) 41.6 H D-Dimer Protein S Activity Sodium 137 Potassium 3.6 Chloride 104 Carbon Dioxide 25 Anion Gap 8 BUN 4 L Creatinine 0.6 Creat Clearance w eGFR > 60 Random Glucose 87 Calcium 7.9 L Phosphorus 3.1 Magnesium 2.1 Total Bilirubin 0.8 AST 89 H ALT 47 Alkaline Phosphatase 137 H Total Protein 6.4 Albumin 2.5 L Hepatitis A IgM Ab Hep Bs Antigen Hep B Core IgM Ab Hepatitis C Antibody 05/12/18 05/12/18 05:30 12:38 WBC RBC Hgb Hct MCV MCH MCHC RDW Plt Count MPV PTT (Actin FS) 39.0 H 30.4 D-Dimer Protein S Activity Sodium Potassium Chloride Carbon Dioxide Anion Gap BUN Creatinine Creat Clearance w eGFR Random Glucose Calcium Phosphorus Magnesium Total Bilirubin AST ALT Alkaline Phosphatase Total Protein Albumin Hepatitis A IgM Ab Hep Bs Antigen Hep B Core IgM Ab Hepatitis C Antibody Active Medications Generic Name Dose Route Start Last Admin Trade Name Freq PRN Reason Stop Dose Admin Chlorhexidine Gluconate 1 applic 05/12/18 22:00 Hibiclens For Decolonization - TP HS YUSEF Folic Acid 1 mg 05/13/18 10:00 Folic Acid - PO DAILY YUSEF Heparin Sodium (Porcine) 1,000 unit 05/12/18 14:50 Heparin - IVPUSH PRN PRN Heparin Heparin Sodium (Porcine) 5,000 unit 05/12/18 14:50 Heparin - IVPUSH PRN PRN Heparin Dextrose/Lactated Ringer's 1,000 mls @ 250 mls/hr 05/12/18 14:50 D5-Lr - IV ASDIR YUSEF Heparin Sodium/Dextrose 25,000 units in 500 mls @ 20 mls/hr 05/12/18 14:50 Heparin Infusion - IVPB TITR [facility] Protocol 1,000 UNITS/HR Imipenem/Cilastatin Sodium 500 100 mls @ 100 mls/hr 05/12/18 21:00 mg/ Sodium Chloride IVPB Q6H-IV [facility] Protocol Lactulose 20 gm 05/12/18 14:50 Cephulac (Oral Use) PO Q6H PRN CONSTIPATION Lorazepam 2 mg 05/12/18 14:50 Ativan Injection - IVPUSH Q4H-IV PRN agitation/withdrawal Morphine Sulfate 2 mg 05/12/18 14:50 Morphine Sulfate IVPUSH Q4H PRN PAIN LEVEL 7 - 10 Multivitamins/Minerals/Vitamin C 1 tab 05/13/18 10:00 Tab-A-Vit - PO DAILY YUSEF Mupirocin 1 applic 05/12/18 22:00 Bactroban Ointment (For Decolonization) - NS 05/15/18 21:59 BID [facility] Pantoprazole Sodium 40 mg 05/13/18 10:00 Protonix Iv IVPUSH DAILY [facility] Thiamine HCl 100 mg 05/13/18 10:00 Vitamin B1 - PO DAILY [facility] ASSESSMENT/PLAN: 32 yo M with a hx of ETOH abuse (last drink Thursday) admitted to [facility] for 2x day of N/V with severe abdominal pain subsequently admitted to the ICU for severe acute necrotizing pancreatitis. Neurological Alert and oriented x3. Mental status intact CIWA of 1 on admission Alcohol detox in progress, ativan 2mg q4h, folic acid and thiamine -Monitor for mental status changes GI: Sepsis secondary to acute, severe, necrotizing pancreatitis. SANDEEP score is 4 (LDH not assessed at initial intake) with an QUECHAN II score 5. These predict 15% and 8% mortality respectively. GI service consulted, appreciate recommendations. Scheduled for a EGD tomorrow will stop heparin drop. Continue hydration, increased hydration rate to 250 cc/hr with D5/LR. Will continue imipenem per ID for acute necrotizing pancreatitis. Triple phase MRI showed thromobosis in the splenic vein with necrotizing pancreatitis in the tail portion with a hemorrhagic component, but no portal vein thrombosis. After speaking with radiology, problems could be with study itself; if CT showed portal thrombosis then its present. 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 Consulted heme; agreed to start heparin drip for anticoagulation with d-dimer, fibrinogen, factor 8 and 9, protein c and s to be ordered prior. Per lab, there is no order on [facility] for factor 9, therefore they ordered for us and its a send out. Will continue heparin drip. CV: Tachycardic sinus. Likely secondary to sepsis vs pain -Monitor vitals on telemetry Pulm: Tachypneic likely secondary to pain and septic condition. O2 stable -Continue to monitor ID: Continue imipenem per ID for necrotizing pancreatitis. FEN: NPO for now D5/LR Replete electrolytes in AM PPX: Heparin Disposition: Will continue ICU monitoring, expected EGD tomorrow. Likely will be transferred to floors within 48 hours if conditions continue to be stable
--- NOTE | 2018-05-12 18:43 | PN ---
Progress Note (short form) - Note Progress Note: EGD performed today with area of congested, erythematous mucosa in gastric body ?gastropathy in setting of acute etoh setting. No bleeding seen. No obvious esophageal or gastric varices seen. There was 2 diminutive benign appearing lesions in the proximal esophagus ?papilloma, not biopsied. See scanned endoscopy reports for details. -Recommend monitor Hb and for evidence of bleeding -Anticoagulation per primary team -Clear liquid diet and advance as tolerated as clinically improving -Strict etoh abstinence -Consider repeat EGD in 6 months to re-evaluate Discussed with ICU team
[2018-05-12] MEDS ORDERED: CHLORHEXIDINE GLUCONATE 4% CLEANSER FOR DECOLONIZATION TP SCH (22:00)
[2018-05-12] MEDS ORDERED: MUPIROCIN 2% TOPICAL OINTMENT FOR DECOLONIZATION NS SCH (22:00)
[2018-05-13 01:29] LABS: PROTEIN C ACTIVITY 132 % (73-180)
[2018-05-13] MEDS: IMIPENEM/CILASTATIN SODIUM 500 MG in SODIUM CHLORIDE 100 ML IVPB SCH ×4 (02:23→20:38)
[2018-05-13] MEDS: DEXTROSE 5%-LACTATED RINGERS 1,000 ML IV SCH ×3 (04:46→12:25)
--- NOTE | 2018-05-13 07:07 | PN ---
Physical Exam: SUBJECTIVE: Patient seen and examined at bedside. Transfered to med/surg following EGD yesterday. Affirms pain improving, no further nausea/vomiting. OBJECTIVE: Vital Signs Period Temp Pulse Resp BP Sys/Montejo Pulse Ox Last 24 Hr 98.1 F-98.9 F 63-80 18-28 105-135/54-93 95-99 GENERAL: A&Ox3, no signs of withdrawal HEENT: NC/AT, PERRLA, EOMI, scleral icterus resolved, MMM NECK: Normal range of motion, supple without lymphadenopathy, JVD, or masses. LUNGS: CTA b/l HEART: RRR no m/r/g ABDOMEN: +bs, mildly distended, tympanitic, improving TTP in LUQ and LLQ, no TTP in RUQ, no Soils's sign LOWER EXTREMITIES: 2+ pulses, warm, well-perfused. No calf tenderness. No peripheral edema. 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 w/o focal defect SKIN: jaundice clearing Laboratory Results - last 24 hr 05/11/18 05/11/18 05/12/18 14:00 14:00 12:38 PTT (Actin FS) 30.4 Protein C Activity 132 Protein S Activity 89 05/13/18 00:05 PTT (Actin FS) 35.5 Protein C Activity Protein S Activity Active Medications Generic Name Dose Route Start Last Admin Trade Name Diana PRN Reason Stop Dose Admin Chlorhexidine Gluconate 1 applic 05/12/18 22:00 05/12/18 22:28 Hibiclens For Decolonization - TP Not Given HS YUSEF Folic Acid 1 mg 05/13/18 10:00 Folic Acid - PO DAILY YUSEF Heparin Sodium (Porcine) 1,000 unit 05/12/18 14:50 Heparin - IVPUSH PRN PRN Heparin Heparin Sodium (Porcine) 5,000 unit 05/12/18 14:50 05/13/18 02:20 Heparin - IVPUSH 5,000 unit PRN PRN Administration Heparin Dextrose/Lactated Ringer's 1,000 mls @ 250 mls/hr 05/12/18 14:50 05/13/18 04: 46 D5-Lr - IV 250 mls/hr ASDIR YUSEF Administration Heparin Sodium/Dextrose 25,000 units in 500 mls @ 20 mls/hr 05/12/18 14:50 02:20 Heparin Infusion - IVPB 1,150 units/hr TITR YUSEF 23 mls/hr Titration Protocol 1,000 UNITS/HR Imipenem/Cilastatin Sodium 500 100 mls @ 100 mls/hr 05/12/18 21:00 05/13/18 02:23 mg/ Sodium Chloride IVPB 100 mls/hr Q6H-IV YUSEF Administration Protocol Lactulose 20 gm 05/12/18 14:50 Cephulac (Oral Use) PO Q6H PRN CONSTIPATION Lorazepam 2 mg 05/12/18 14:50 Ativan Injection - IVPUSH Q4H-IV PRN agitation/withdrawal Morphine Sulfate 2 mg 05/12/18 14:50 05/13/18 00:39 Morphine Sulfate IVPUSH 2 mg Q4H PRN Administration PAIN LEVEL 7 - 10 Multivitamins/Minerals/Vitamin C 1 tab 05/13/18 10:00 Tab-A-Vit - PO DAILY [facility] Mupirocin 1 applic 05/12/18 22:00 05/12/18 22:28 Bactroban Ointment (For Decolonization) - NS 05/15/18 21:59 Not Given BID [facility] Pantoprazole Sodium 40 mg 05/13/18 10:00 Protonix Iv IVPUSH DAILY [facility] Thiamine HCl 100 mg 05/13/18 10:00 Vitamin B1 - PO DAILY [facility] ASSESSMENT/PLAN: 32 y/o M w/ PMHx EtOH abuse x 15 years, childhood asthma, presented to ED intoxicated c/o abd pain and NBNB vomiting x 2 days, admitted w/ LFT derangements and leukocytosis. Admitted to ICU secondary to discovery of necrotizing pancreatitis. #GI -CT a/p showing diminished perfusion, peripancreatic inflammation and fluid at the tail indicative of necrotizing pancreatitis, additionally distal splenic and proximal portal vein thrombosis -triple phase MRI: pancreatitis with hemorrhagic necrosis of the pancreatic tail , possible splenic vein thrombosis, small L pleural effusion -coagulopathy w/u pending -likely concomitant alcoholic hepatitis -LFTs downtrending, bilirubin normalized -successfully advanced to clear diet yesterday, advancing to regular today -D5LR reducing rate to 125cc/hr -EGD yesterday unremarkable -oxy PRN for pain -all medications switched to PO except those requiring IV administration -GI consult -ID consult -Sx consult #ID -on admission: fever, leukocytosis, tachycardia and tachypnea all present, therefore presumed sepsis 2/2 necrotizing pancreatitis, additionally meets criteria for acute cholangitis -imipenem 500 q6h (day 4) -D5LR @ 125 -now afebrile -WBC 25.6-->18.9-->13.4-->9.5 #heme/onc -low dose heparin gtt -anticipate transition to PO AC tomorrow -will need reimaging of pancreas to r/o tumor after acute pancreatitis resolved #neuro -lactulose PPx given risk of hepatic encephalopathy #renal -hyponatremia 2/2 potomania, cont IVF -aggressive monitoring and repletion of Mg, K, Phos #toxicology -EtOH intoxication on admission -no withdrawal signs developed -cont thiamine, MVI, folate #FEN -D5LR @ 125 -monitor and correct electrolytes, aggressive repletion of K, Mg, Phos -regular diet #PPx -DVT: heparin gtt -GI: PTX #code -full #dispo -monitor on med/surg Visit type - Emergency Visit Emergency Visit: No - New Patient This patient is new to me today: No - Critical Care Critical Care patient: No
[2018-05-13 07:25] LABS: BASO % 0.4 % (0-2.0); EOS % 1.8 % (0-4.5); HEMATOCRIT 35.4 % (35.4-49); HEMOGLOBIN 12.7 GM/dL (11.7-16.9); MCH 34.3 pg (25.7-33.7); MCHC 35.9 g/dl (32.0-35.9); MEAN CELL VOLUME 95.6 fl (80-96); MEAN PLT VOLUME 7.6 fl (7.5-11.1); MONO % 13.5 % (3.8-10.2); NEUT % 62.3 % (42.8-82.8); PLATELET COUNT 204 K/MM3 (134-434); RDW 14.4 % (11.9-15.9); WHITE BLOOD COUNT 9.5 K/mm3 (4.0-10.0)
[2018-05-13 08:06] LABS: ALBUMIN 2.5 g/dl (3.4-5.0); ALK PHOS 121 U/L (45-117); ANION GAP 7 MMOL/L (8-16); BILIRUBIN,TOTAL 0.5 mg/dL (0.2-1); BLOOD UREA NITROGEN 3 mg/dL (7-18); CALCIUM 8.2 mg/dL (8.5-10.1); CHLORIDE 102 mmol/L (98-107); CO2 26 mmol/L (21-32); CREATININE 0.7 mg/dL (0.55-1.3); GLUCOSE,RANDOM 116 mg/dL (74-106); PHOSPHOROUS 3.8 mg/dL (2.5-4.9); POTASSIUM 3.3 mmol/L (3.5-5.1); SGOT/AST 68 U/L (15-37); SGPT/ALT 49 U/L (13-61); SODIUM 135 mmol/L (136-145); TOT PROT 6.2 g/dl (6.4-8.2)
[2018-05-13] MEDS ORDERED: POTASSIUM CHLORIDE TABS 20 MEQ TABLET.ER (FP) PO ONE (08:30)
[2018-05-13] MEDS ORDERED: PT OWN MED DRAWER 7, Y5N ONE ×2 (09:57→15:15)
[2018-05-13] MEDS ORDERED: PANTOPRAZOLE SODIUM 40 MG VIAL IVPUSH SCH (10:00)
[2018-05-13] MEDS: THIAMINE HCL 100 MG TABLET (FP) PO SCH (10:02)
[2018-05-13] MEDS: FOLIC ACID 1 MG TABLET (FP) PO SCH (10:02)
[2018-05-13] MEDS: MULTIVITAMINS (DAILY MVI) TABLET (FP) PO SCH (10:02)
[2018-05-13] MEDS: HEPARIN INFUSION - 25,000 UNITS/500 ML INFUS.BAG IVPB SCH ×2 (10:04→15:25)
[2018-05-13 11:24] LABS: ANISOCYTOSIS 2+; MACROCYTOSIS 0; PLATELET ESTIMATE NORMAL; TEAR DROP CELLS 1+
--- NOTE | 2018-05-13 11:52 | PN ---
Teaching Attending Note Name of Resident: Simeon Jeffrey ATTENDING PHYSICIAN STATEMENT I saw and evaluated the patient. I reviewed the resident's note and discussed the case with the resident. I agree with the resident's findings and plan as documented. SUBJECTIVE:some mild discomfort. tolerating diet, requesting more solid food. denies Cp, SOB< fever, chills, N/V/C/D OBJECTIVE: Last Vital Signs Temp Pulse Resp BP Pulse Ox 98.5 F 63 20 116/77 95 05/13/18 05:43 05/13/18 05:43 05/13/18 05:43 05/13/18 05:43 05/12/18 21:00 General NAD CV S1 S2 RRR no murmur/rub/gallop Lungs CTA B/L no wheezing/rales/rhonchi ABdomen soft +epigastric tenderness no rebound or guarding extremities no pedal edema ASSESSMENT AND PLAN: 32 year old Male with history of Alcohol Abuse, Childhood Asthma, presents to ED intoxicated, complaining of 2 day history of abdominal pain with nausea/ vomiting (non-bloody, non-bilious), with liver enzyme derangement. 1. Sepsis sec to Possible Acute Necrotic Pancreatitis with Acute Hepatitis ( likely sec to Alcohol) versus Acute Cholangitis- afebrile. clinically improved. tolerated liquid diet. will advance as tolerated. d/c IVF once tolerating. on imipenem day 4. will d/w ID about duration. surgery, ID and GI on board 2. 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 will convert to NOAC tomorrow. will need minimum 6 months anticoagulation and workup as outpatient 3. Gastritis- EGD not showing any signs of varices. on ppi 4. Acute ETOH intoxication- no signs of withdrawals at this time. service counselor on ETOH abstinence. will d/w about inpatient rehab once medically optimized 5. Hypokalemia- resolved 6. Hypomagnesemia- resolved 7. Hypokalemia- KCL po 8. DVT Px - Heparin SQ 9. GI Px - PPI
[2018-05-13] MEDS ORDERED: oxyCODONE HCL 5 MG TABLET PO PRN (11:54)
--- NOTE | 2018-05-13 12:12 | PN ---
GI Progress Note Subjective: patient sitting up. states feeling well Abdominal pain improved Tolerated breakfast - Objective Vital Signs: Vital Signs Temperature 98.5 F 05/13/18 05:43 Pulse Rate 63 05/13/18 05:43 Respiratory Rate 20 05/13/18 05:43 Blood Pressure 116/77 05/13/18 05:43 O2 Sat by Pulse Oximetry (%) 95 05/12/18 21:00 Constitutional: Calm Eyes: No: Sclera Icterus Cardiovascular: Yes: Regular Rate and Rhythm Respiratory: Yes: CTA Bilaterally Gastrointestinal Inspection: No: Distention ...Auscultate: Yes: Normoactive Bowel Sounds ...Palpate: Yes: Tenderness (Mild/minimal TTP LUQ) ...Percussion: No: Tympanitic Edema: No (No LE edema) Neurological: Yes: Alert Labs: CBC, BMP 05/13/18 06:30 05/13/18 06:30 INR, PTT INR 1.03 (0.83-1.09) 05/11/18 14:00 Fibrinogen > 500.0 mg/dL (238-498) H 05/11/18 14:00 Hepatic Panel Total Bilirubin 0.5 mg/dL (0.2-1) 05/13/18 06:30 Direct Bilirubin 0.9 mg/dL (0.0-0.2) H 05/11/18 05:30 AST 68 U/L (15-37) H 05/13/18 06:30 ALT 49 U/L (13-61) 05/13/18 06:30 Alkaline Phosphatase 121 U/L (45-117) H 05/13/18 06:30 Albumin 2.5 g/dl (3.4-5.0) L 05/13/18 06:30 Problem List - Problems (1) Pancreatitis, necrotizing Assessment/Plan: Clinically much improved and tolerating PO Once again advised complete alcohol cessation Diet as tolerated On A/C for thrombosis. No gastric varices noted on upper endoscopy. Monitor H/H AM labs. Titrate IV fluids down as tolerated Code(s): K85.91 - ACUTE PANCREATITIS WITH UNINFECTED NECROSIS, UNSPECIFIED
--- NOTE | 2018-05-13 13:12 | PN ---
Progress Note, Physician Chief Complaint: abdominal pain History of Present Illness: 32 yo male PMH EtOH abuse x 15 years, childhood asthma, p/w sudden onset abdominal pain sharp in character x 2 days a/w n/v 3-4 episodes per day (NBNB), and difficulty passing urine (though was able to provide urine in ED after several hours and significant PO hydration). He has been hemodynamically stable since initial evaluation . trasfered from ICU. - Current Medication List Current Medications: Active Medications Folic Acid (Folic Acid -) 1 mg PO DAILY YUSEF Last Admin: 05/13/18 10:02 Dose: 1 mg Heparin Sodium (Porcine) (Heparin -) 1,000 unit IVPUSH PRN PRN PRN Reason: Heparin Heparin Sodium (Porcine) (Heparin -) 5,000 unit IVPUSH PRN PRN PRN Reason: Heparin Last Admin: 05/13/18 02:20 Dose: 5,000 unit Heparin Sodium/Dextrose (Heparin Infusion -) 25,000 units in 500 mls @ 20 mls/ hr IVPB TITR YUSEF; Protocol Last Admin: 05/13/18 10:04 Dose: 1,150 units/hr, 23 mls/hr Imipenem/Cilastatin Sodium 500 (mg/ Sodium Chloride) 100 mls @ 100 mls/hr IVPB Q6H-IV YUSEF; Protocol Last Admin: 05/13/18 10:03 Dose: 100 mls/hr Dextrose/Lactated Ringer's (D5-Lr -) 1,000 mls @ 125 mls/hr IV ASDIR YUSEF Last Admin: 05/13/18 12:25 Dose: 125 mls/hr Lactulose (Cephulac (Oral Use)) 20 gm PO Q6H PRN PRN Reason: CONSTIPATION Multivitamins/Minerals/Vitamin C (Tab-A-Vit -) 1 tab PO DAILY YUSEF Last Admin: 05/13/18 10:02 Dose: 1 tab Oxycodone HCl (Roxicodone -) 5 mg PO Q6H PRN PRN Reason: PAIN LEVEL 6-10 Pantoprazole Sodium (Protonix -) 40 mg PO DAILY YUSEF Thiamine HCl (Vitamin B1 -) 100 mg PO DAILY YUSEF Last Admin: 05/13/18 10:02 Dose: 100 mg - Objective Vital Signs: Vital Signs Temperature 99.3 F 05/13/18 09:00 Pulse Rate 82 05/13/18 09:00 Respiratory Rate 20 05/13/18 09:00 Blood Pressure 124/71 05/13/18 09:00 O2 Sat by Pulse Oximetry (%) 95 05/12/18 21:00 Vital Signs Period Temp Pulse Resp BP Sys/Montejo Pulse Ox Last 24 Hr 98.1 F-99.3 F 63-82 20-22 116-135/71-82 95-97 Constitutional: Yes: Well Nourished, No Distress, Calm Eyes: Yes: Conjunctiva Clear, EOM Intact HENT: Yes: Atraumatic, Normocephalic Neck: Yes: Supple, Trachea Midline Cardiovascular: Yes: Regular Rate and Rhythm, S1, S2 Respiratory: Yes: Regular, CTA Bilaterally Gastrointestinal: Yes: Normal Bowel Sounds, Soft, Distention, Tenderness, Tenderness, Epigastrium. No: Hepatomegaly, Tenderness, Rebound ...Rectal Exam: Yes: Deferred Genitourinary: No: CVA Tenderness - Left, CVA Tenderness - Right Musculoskeletal: No: Muscle Pain, Muscle Weakness Extremities: No: Cool, Cyanosis Edema: No Peripheral Pulses WNL: Yes Peripheral Pulses: Left Radial: 2+, Right Radial: 2+, Left Doralis Pedis: 2+, Right Dorsalis Pedis: 2+, Left Femoral: 2+, Right Femoral: 2+ Neurological: Yes: Alert, Oriented Psychiatric: Yes: Alert, Oriented Labs: CBC, BMP 05/13/18 06:30 05/13/18 06:30 INR, PTT INR 1.03 (0.83-1.09) 05/11/18 14:00 Fibrinogen > 500.0 mg/dL (238-498) H 05/11/18 14:00 Problem List - Problems (1) Pancreatitis, alcoholic, acute Assessment/Plan: 32yo male MMP with acute alcoholic necrotic pancreatitis, no need for acute surgical intervention. Agree with anticoagulation for thrombosis. NPO and IVF hydration empiric IV antibiotics trend labs Consider CT guided aspiration if he continues to worsen clinically Recall as needed This patient is critically ill. Time spent reviewing chart, examining patient, talking with providers and/or family and documentation is XX minutes. Code(s): K85.20 - ALCOHOL INDUCED ACUTE PANCREATITIS WITHOUT NECROSIS OR INFCT Qualifiers: Acute pancreatitis complication: uninfected necrosis Qualified Code(s): K85.21 - Alcohol induced acute pancreatitis with uninfected necrosis (2) Pancreatitis, necrotizing Code(s): K85.91 - ACUTE PANCREATITIS WITH UNINFECTED NECROSIS, UNSPECIFIED (3) Alcohol withdrawal Code(s): F10.239 - ALCOHOL DEPENDENCE WITH WITHDRAWAL, UNSPECIFIED Qualifiers: Complication of substance-induced condition: uncomplicated Qualified Code(s ): F10.230 - Alcohol dependence with withdrawal, uncomplicated (4) Alcoholic liver disease Code(s): K70.9 - ALCOHOLIC LIVER DISEASE, UNSPECIFIED (5) Transaminitis Code(s): R74.0 - NONSPEC ELEV OF LEVELS OF TRANSAMNS & LACTIC ACID DEHYDRGNSE (6) Vomiting Code(s): R11.10 - VOMITING, UNSPECIFIED Qualifiers: Vomiting type: bilious vomiting Nausea presence: with nausea Qualified Code(s): R11.14 - Bilious vomiting
--- NOTE | 2018-05-13 15:36 | EKG ---
Test Reason : Blood Pressure : / mmHG Vent. Rate : 076 BPM Atrial Rate : 076 BPM P-R Int : 152 ms QRS Dur : 092 ms QT Int : 386 ms P-R-T Axes : 012 072 149 degrees QTc Int : 434 ms NORMAL SINUS RHYTHM T WAVE ABNORMALITY, CONSIDER LATERAL ISCHEMIA ABNORMAL ECG WHEN COMPARED WITH ECG OF 14-OCT-2017 14:27, T WAVE INVERSION NOW EVIDENT IN LATERAL LEADS QT HAS SHORTENED Confirmed by MIRTHA NOYOLA, SALENA ([id number]) on 05/13/2018 3:36:22 PM Referred By: EZEQUIEL SILVESTRE Confirmed By:SALENA SHANNON MD
[2018-05-13 16:40] VITALS: BMI 25.9
--- NOTE | 2018-05-13 18:55 | PN ---
Progress Note (short form) - Note Progress Note: fevers resolved less abdominal pain Vital Signs Period Temp Pulse Resp BP Sys/Montejo Pulse Ox Last 24 Hr 98.1 F-99.3 F 63-82 20-22 116-135/71-79 95-97 cor-rrr lungs crackles both bases abd soft,nt ext no edema CBC, BMP 05/13/18 06:30 05/13/18 06:30 MRI with pancreatic necrosis of the tail with area of hemorrhage and splenic vein thrombosis Current Medications Folic Acid (Folic Acid -) 1 mg PO DAILY [facility] Last Admin: 05/13/18 10:02 Dose: 1 mg Imipenem/Cilastatin Sodium 500 (mg/ Sodium Chloride) 100 mls @ 100 mls/hr IVPB Q6H-IV YUSEF; Protocol Last Admin: 05/13/18 15:25 Dose: 100 mls/hr Dextrose/Lactated Ringer's (D5-Lr -) 1,000 mls @ 125 mls/hr IV ASDIR YUSEF Last Admin: 05/13/18 12:25 Dose: 125 mls/hr Lactulose (Cephulac (Oral Use)) 20 gm PO Q6H PRN PRN Reason: CONSTIPATION Multivitamins/Minerals/Vitamin C (Tab-A-Vit -) 1 tab PO DAILY [facility] Last Admin: 05/13/18 10:02 Dose: 1 tab Oxycodone HCl (Roxicodone -) 5 mg PO Q6H PRN PRN Reason: PAIN LEVEL 6-10 Last Admin: 05/13/18 15:24 Dose: 5 mg Pantoprazole Sodium (Protonix -) 40 mg PO DAILY [facility] Rivaroxaban (Xarelto -) 20 mg PO DAILY@1800 [facility] Thiamine HCl (Vitamin B1 -) 100 mg PO DAILY [facility] Last Admin: 05/13/18 10:02 Dose: 100 mg a/p fevers resolving-clinically improved pancreatic necrosis splenic vein thrombosis blood cultures IVF imipenem 500 q6h day #4 clinically improving GI and surgery f/u ongoing incentive spirometry cxray to r/o pneumonia if no objection by GI or surgery, and cxray is normal, will d/c antibiotics in am Problem List - Problems (1) Fever Code(s): R50.9 - FEVER, UNSPECIFIED (2) Alcoholic liver disease Code(s): K70.9 - ALCOHOLIC LIVER DISEASE, UNSPECIFIED (3) Pancreatitis, necrotizing Code(s): K85.91 - ACUTE PANCREATITIS WITH UNINFECTED NECROSIS, UNSPECIFIED
[2018-05-14] MEDS: IMIPENEM/CILASTATIN SODIUM 500 MG in SODIUM CHLORIDE 100 ML IVPB SCH ×2 (02:12→10:58)
[2018-05-14] MEDS: DEXTROSE 5%-LACTATED RINGERS 1,000 ML IV SCH (04:18)
[2018-05-14 07:24] LABS: BASO % 0.6 % (0-2.0); EOS % 1.6 % (0-4.5); HEMATOCRIT 36.8 % (35.4-49); HEMOGLOBIN 12.9 GM/dL (11.7-16.9); LYMPH % 17.5 % (8-40); MCH 34.1 pg (25.7-33.7); MEAN CELL VOLUME 97.6 fl (80-96); MEAN PLT VOLUME 7.1 fl (7.5-11.1); MONO % 15.5 % (3.8-10.2); NEUT % 64.8 % (42.8-82.8); PLATELET COUNT 290 K/MM3 (134-434); RBC 3.77 M/mm3 (4.00-5.60); RDW 14.6 % (11.9-15.9); WHITE BLOOD COUNT 8.9 K/mm3 (4.0-10.0)
[2018-05-14 08:06] LABS: ALBUMIN 2.7 g/dl (3.4-5.0); ALK PHOS 129 U/L (45-117); ANION GAP 6 MMOL/L (8-16); BILIRUBIN,TOTAL 0.4 mg/dL (0.2-1); BLOOD UREA NITROGEN 5 mg/dL (7-18); CALCIUM 8.6 mg/dL (8.5-10.1); CHLORIDE 104 mmol/L (98-107); CO2 27 mmol/L (21-32); CREATININE 0.8 mg/dL (0.55-1.3); GLUCOSE,RANDOM 107 mg/dL (74-106); MAGNESIUM 2.4 mg/dL (1.8-2.4); POTASSIUM 4.8 mmol/L (3.5-5.1); SGOT/AST 62 U/L (15-37); SGPT/ALT 55 U/L (13-61); SODIUM 137 mmol/L (136-145); TOT PROT 6.7 g/dl (6.4-8.2)
[2018-05-14] MEDS ORDERED: PANTOPRAZOLE 40 MG TABLET (FP) PO SCH (10:00)
--- NOTE | 2018-05-14 10:07 | PN ---
Teaching Attending Note Name of Resident: Simeon Jeffrey ATTENDING PHYSICIAN STATEMENT I saw and evaluated the patient. I reviewed the resident's note and discussed the case with the resident. I agree with the resident's findings and plan as documented. SUBJECTIVE:asymptomatic. tolerated regular diet. denies CP, SOB, fever, chills, N/V/C/D OBJECTIVE: Last Vital Signs Temp Pulse Resp BP Pulse Ox 98.2 F 77 20 128/58 L 96 05/13/18 22:00 05/13/18 22:00 05/13/18 22:00 05/13/18 22:00 05/13/18 21:00 General NAD CV S1 S2 RRR no murmur/rub/gallop Lungs CTA B/L no wheezing/rales/rhonchi ABdomen soft NT/ND no rebound or guarding ASSESSMENT AND PLAN: 32 year old Male with history of Alcohol Abuse, Childhood Asthma, presents to ED intoxicated, complaining of 2 day history of abdominal pain with nausea/ vomiting (non-bloody, non-bilious), with liver enzyme derangement. 1. Sepsis sec to Possible Acute Necrotic Pancreatitis with Acute Hepatitis ( likely sec to Alcohol) versus Acute Cholangitis- afebrile. clinically improved. tolerated regular diet. on imipenem day 5. plan to d/c today surgery, ID and GI on board 2. 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 on Xarelto. will need minimum 6 months anticoagulation and workup as outpatient 3. Gastritis- EGD not showing any signs of varices. on ppi 4. Acute ETOH intoxication- no signs of withdrawals at this time. certified drug counselor on ETOH abstinence. will d/w about inpatient rehab once medically optimized 5. Hypokalemia- resolved 6. Hypomagnesemia- resolved 7. Hypokalemia- resolved 8. DVT Px - xarelto 9. GI Px - PPI 10. d/c home today. counseled on new medications
[2018-05-14] MEDS ORDERED: PT OWN MED DRAWER 7, Y5N ONE (10:56)
[2018-05-14] MEDS: THIAMINE HCL 100 MG TABLET (FP) PO SCH (11:00)
[2018-05-14] MEDS: MULTIVITAMINS (DAILY MVI) TABLET (FP) PO SCH (11:00)
[2018-05-14] MEDS: FOLIC ACID 1 MG TABLET (FP) PO SCH (11:00)
--- NOTE | 2018-05-14 12:00 | DS ---
Physical Exam: SUBJECTIVE: Patient seen and examined at bedside. Clinical condition continues improving, tolerated full diet well, minimal pain. OBJECTIVE: Vital Signs Period Temp Pulse Resp BP Sys/Montejo Pulse Ox Last 24 Hr 98.2 F-98.5 F 77-81 20-20 123-131/58-82 96 PHYSICAL EXAM GENERAL: A&Ox3 HEENT: NC/AT, PERRLA, EOMI, scleral icterus resolved, MMM NECK: Normal range of motion, supple without lymphadenopathy, JVD, or masses. LUNGS: CTA b/l HEART: RRR no m/r/g ABDOMEN: +bs, mildly distended, tympanitic, improving TTP in LUQ and LLQ, no TTP in RUQ, no Solis's sign LOWER EXTREMITIES: 2+ pulses, warm, well-perfused. No calf tenderness. No peripheral edema. 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 systems w/o focal defect SKIN: jaundice clearing LABS Laboratory Results - last 24 hr 05/13/18 05/14/18 05/14/18 06:30 06:00 06:00 WBC 8.9 RBC 3.77 L Hgb 12.9 Hct 36.8 MCV 97.6 H MCH 34.1 H MCHC 35.0 RDW 14.6 Plt Count 290 D MPV 7.1 L Absolute Neuts (auto) 5.8 Neutrophils % 64.8 Neutrophils % (Manual) 60.6 D Band Neutrophils % 0.0 Lymphocytes % 17.5 D Lymphocytes % (Manual) 19.2 D Monocytes % 15.5 H Monocytes % (Manual) 8 D Eosinophils % 1.6 Eosinophils % (Manual) 4.0 D Basophils % 0.6 Basophils % (Manual) 0.0 Myelocytes % (Man) 0 Promyelocytes % (Man) 0 Blast Cells % (Manual) 0 Nucleated RBC % 0 Metamyelocytes 0 Platelet Estimate Normal Platelet Comment Present Polychromasia 1+ Poikilocytosis 0 Anisocytosis 2+ Microcytosis 0 Macrocytosis 0 Tear Drop Cells 1+ Rossi Cells 1+ PTT (Actin FS) 31.8 Sodium Potassium Chloride Carbon Dioxide Anion Gap BUN Creatinine Creat Clearance w eGFR Random Glucose Calcium Phosphorus Magnesium Total Bilirubin AST ALT Alkaline Phosphatase C-Reactive Protein Total Protein Albumin 05/14/18 05/14/18 06:00 06:00 WBC RBC Hgb Hct MCV MCH MCHC RDW Plt Count MPV Absolute Neuts (auto) Neutrophils % Neutrophils % (Manual) Band Neutrophils % Lymphocytes % Lymphocytes % (Manual) Monocytes % Monocytes % (Manual) Eosinophils % Eosinophils % (Manual) Basophils % Basophils % (Manual) Myelocytes % (Man) Promyelocytes % (Man) Blast Cells % (Manual) Nucleated RBC % Metamyelocytes Platelet Estimate Platelet Comment Polychromasia Poikilocytosis Anisocytosis Microcytosis Macrocytosis Tear Drop Cells Penfield Cells PTT (Actin FS) Sodium 137 Potassium 4.8 Chloride 104 Carbon Dioxide 27 Anion Gap 6 L BUN 5 L Creatinine 0.8 Creat Clearance w eGFR > 60 Random Glucose 107 H Calcium 8.6 Phosphorus 4.0 Magnesium 2.4 Total Bilirubin 0.4 AST 62 H ALT 55 Alkaline Phosphatase 129 H C-Reactive Protein 10.3 H Total Protein 6.7 Albumin 2.7 L HOSPITAL COURSE: Date of Admission:05/08/18 Patient is a 32 y/o M w/ PMHx EtOH abuse x 15 years and childhood asthma who presented to the ED intoxicated c/o abd pain and NBNB vomiting x 2 days, admitted to the hospital w/ profound LFT derangements in an alcoholic hepatitis pattern and leukocytosis. CT and triple phase MRI studies demonstrated necrotizing pancreatitis with a hemorrhagic component and splenic vein thrombosis, prompting admission to the ICU. GI, ID, hematology-oncology, surgery , and critical care were consulted. He was treated with aggressive replacement fluids, IV imipenem-cilastatin, and heparin gtt. No surgical intervention was indicated. He recovered well and was restarted on full (fat-controlled diet). He was discharged on a new prescription of Xarelto with instructions for close follow up with GI, hematology-oncology, and primary medical care. He was informed of the need for repeat imaging to assess for an underlying pancreatic tumor. He was counseled on strict abstinence from alcohol and the life- threatening risk of ongoing alcohol consumption. He was counseled on strict adherence to medication. Date of Discharge: 05/14/18 Minutes to complete discharge: 40 Discharge Summary Reason For Visit: ALCOHOL WITHDRAWAL SYNDROME Current Active Problems Alcohol withdrawal (Acute) Alcoholic liver disease (Acute) Epigastric pain (Acute) Fever (Acute) Pancreatitis, alcoholic, acute (Acute) Pancreatitis, necrotizing (Acute) Splenic vein thrombosis (Acute) Thrombosis, portal vein (Acute) Transaminitis (Acute) Condition: Guarded - Instructions Diet, Activity, Other Instructions: You were hospitalized due to abdominal pain, nausea, and vomiting. It was determined that these symptoms were due to very severe inflammation of your pancreas and blood clots in the veins near your pancreas. You were treated with intravenous fluids, antibiotics, blood thinners, and pain medication. You were seen by specialists in gastroenterology, infectious disease, surgery, and hematology-oncology. You had a successful recovery in the hospital. However, you will need to continue to take blood thinning medication for the blood clots. You will need long-term follow up with your primary medical doctor, gastroenterology, and hematology-oncology. Your acute symptoms may have been caused by a more serious underlying condition which requires careful and close followup. A prescription for a drug called Xarelto has been sent to your pharmacy. You will take this medication once a day every day. Please refrain from any further intake of alcohol. Continuing to drink alcohol will put your life at risk. You will also need to modify your diet so that your intake of dietary fat is low. A high fat diet will put you at risk for recurrence of your pancreatitis. Additionally, please drink plenty of fluids. If you experience any new or worsening abdominal pain, nausea, vomiting, chest pain, shortness of breath, or any other new or concerning symptoms, please return to the Emergency Department. Medical recommendations: Take Xarelto as prescribed once a day every day. Referrals have been made on your behalf to Dr. Villatoro, Dr. Blanco, and Dr. Cwoan. Please see these providers within one week of discharge. Referrals: Atif Villatoro MD [Other] - 1 Week Jf Blanco DO [Staff Physician] - 1 Week Thmopson Cowan MD [Staff Physician] - 1 Week Disposition: HOME - Home Medications Comprehensive Discharge Medication List: Ambulatory Orders Rivaroxaban [Xarelto -] 20 mg PO DAILY@1800 #14 tablet 05/14/18 This patient is new to me today: No Emergency Visit: No Critical Care patient: No - Discharge Referral Referred to [facility] Med [facility] Yes Physician Referral: Zachary Blanco DO (GI)
--- NOTE | 2018-05-14 12:33 | PN ---
GI Progress Note Subjective: States feeling well Tolerating PO No abdominal pain - Objective Vital Signs: Vital Signs Temperature 98.2 F 05/13/18 22:00 Pulse Rate 77 05/13/18 22:00 Respiratory Rate 20 05/13/18 22:00 Blood Pressure 128/58 L 05/13/18 22:00 O2 Sat by Pulse Oximetry (%) 96 05/13/18 21:00 Constitutional: Calm Eyes: No: Sclera Icterus Cardiovascular: Yes: Regular Rate and Rhythm Respiratory: Yes: CTA Bilaterally Gastrointestinal Inspection: No: Distention ...Auscultate: Yes: Normoactive Bowel Sounds ...Palpate: No: Tenderness ...Percussion: No: Tympanitic Edema: No (No LE edema) Neurological: Yes: Alert Labs: CBC, BMP 05/14/18 06:00 05/14/18 06:00 INR, PTT INR 1.03 (0.83-1.09) 05/11/18 14:00 Fibrinogen > 500.0 mg/dL (238-498) H 05/11/18 14:00 Problem List - Problems (1) Pancreatitis, necrotizing Assessment/Plan: Clincially improved Advised complete alcohol cessation A/C per heme Low fat diet Follow-up in office in 1-2 weeks upon discharge Code(s): K85.91 - ACUTE PANCREATITIS WITH UNINFECTED NECROSIS, UNSPECIFIED
[2018-05-14 13:23] VITALS: BP 131/71; PULSE 81; TEMP 98.9
[2018-05-14 17:53] LABS: PLATELET ESTIMATE ADEQUATE
[2018-05-14] MEDS ORDERED: RIVAROXABAN 20 MG TABLET PO SCH (18:00)
== END 2018-05-14 13:51 | disposition home or self-care (01) | DRG 282 ==
LOC: JER 13:15 → JERBED 17:01 → OBSVTOIN 21:30 → J4W 05-09 14:41 → JICU 05-10 18:32 → J5S 05-12 17:33
PROVIDERS: ADMIT Internal Medicine; ATTEND Internal Medicine
PROC: 0DJ08ZZ Inspection of Upper Intestinal Tract, Via Natural or Artificial Opening Endoscopic (ICD-10-PCS; principal; 2018-05-12 13:15)
DX: K85.21 Alcohol induced acute pancreatitis with uninfected necrosis (principal); R00.0 Tachycardia, unspecified; F10.230 Alcohol dependence with withdrawal, uncomplicated; E87.6 Hypokalemia; E87.1 Hypo-osmolality and hyponatremia; Y90.6 Blood alcohol level of 120-199 mg/100 ml; D72.829 Elevated white blood cell count, unspecified; K70.10 Alcoholic hepatitis without ascites; R74.0 Nonspecific elevation of levels of transaminase and lactic acid dehydrogenase [LDH]; R16.0 Hepatomegaly, not elsewhere classified; B17.9 Acute viral hepatitis, unspecified; E83.42 Hypomagnesemia; E83.39 Other disorders of phosphorus metabolism; K70.9 Alcoholic liver disease, unspecified; R10.13 Epigastric pain; R11.2 Nausea with vomiting, unspecified; F10.129 Alcohol abuse with intoxication, unspecified; E16.2 Hypoglycemia, unspecified; I82.0 Budd-Chiari syndrome; K83.09 Other cholangitis; A41.9 Sepsis, unspecified organism; I82.890 Acute embolism and thrombosis of other specified veins; K29.70 Gastritis, unspecified, without bleeding; R34 Anuria and oliguria; K44.9 Diaphragmatic hernia without obstruction or gangrene
CPT/HCPCS: 36415; 71046-TC-FY; 74177-TC; 74183-TC; 76700-TC; 76775-TC; 80048; 80053; 80074; 80076; 80307; 81003; 81015; 82150; 82248; 82962; 83690; 83735; 84100; 84478; 85025; 85027; 85240; 85250; 85303; 85306; 85379; 85384; 85610; 85730; 86140; 86850; 86900; 86901; 87040; 87086; 87389; 93005; 93010; 94010; 99284-25; G0378; J1644; J7030

== ENCOUNTER 2019-04-22 06:56 | Inpatient (IN) | payer OTHER ==
--- NOTE | 2019-04-22 07:45 | PDOC ---
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 He presents ambulatory to the ER today complaining of severe left upper quadrant pain and vomiting. Pain is intermittent, burning in character, and has been present for at least 2 weeks, but is worse today and now radiates to chest and back. He reports that he has been drinking heavily ("a lot of liquor") for the past several weeks. His last drink was yesterday. He reports feeling "delirious" after not drinking. Vital signs on arrival are notable for HR 104 and BP 161/111. Patient is alert , following commands and is oriented to person and sometimes place (alternately states that he is at home and in the hospital). Smoking: None Social history: Not working, lives in apartment with a 16-year-old son, from [facility] Not working PCP: Dr. Kilpatrick, has not seen for >6 months REVIEW OF SYSTEMS: GENERAL/CONSTITUTIONAL: No fever or chills. No weakness. No weight change. HEAD, EYES, EARS, NOSE AND THROAT: No change in vision. No ear pain or discharge. No sore throat. CARDIOVASCULAR: Chest pain. No palpitations. No edema. RESPIRATORY: No cough, wheezing, or shortness of breath. GASTROINTESTINAL: Nausea/vomiting. States looks "red" sometimes, unsure if he has had hematemesis. No constipation or diarrhea. GENITOURINARY: No dysuria, frequency, or change in urination. MUSCULOSKELETAL: No joint or muscle swelling or pain. No neck or back pain. SKIN: No rash or easy bruising. NEUROLOGIC: Feels "delirious." Feels tremulous. No headache, vertigo, loss of consciousness, or loss of sensation. PSYCHIATRIC: Anxiety. ENDOCRINE: No increased thirst. No abnormal weight change. HEMATOLOGIC/LYMPHATIC: No anemia or easy bleeding. History of splenic vein thrombosis, noncompliant with anticoagulation. ALLERGIC/IMMUNOLOGIC: No hives or skin allergy. No latex allergy. PHYSICAL EXAM: GENERAL: The patient is awake, alert, oriented x1-2. HEAD: Normal with no signs of trauma. ENT: Pupils equal, round and reactive to light, extraocular movements intact, sclera anicteric, conjunctiva clear. Neck supple. Ulcer left lower inner lip. LUNGS: Clear to auscultation bilaterally. Normal excursion. No respiratory distress or use of accessory muscles. CV: RRR, S1/S2, no MRG. Cap refill < 2 sec. ABDOMEN: Soft, non-distended, tender to gentle palpation in left upper quadrant. EXTREMITIES: Normal range of motion, no edema. 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: Disoriented, tremulous, anxious. Moving all extremities. Normal strength and sensation. PSYCH: Bizarre affect. SKIN: Warm, dry, normal turgor, no rashes or lesions noted. <LeathaNava meng - Last Filed: 04/22/19 11:59> - General Chief Complaint: Pain, Acute Stated Complaint: VOMITING,ABDOMINAL,PAIN Time Seen by Provider: 04/22/19 07:36 Past History <Sara Odell - Last Filed: 04/22/19 08:34> - Past Medical History COPD: No - Immunization History Immunization Up to Date: Yes - Psycho Social/Smoking Cessation Hx Smoking History: Never smoked Have you smoked in the past 12 months: No Hx Alcohol Use: No Drug/Substance Use Hx: No Substance Use Type: Alcohol <LeathaNava - Last Filed: 04/22/19 11:59> - Past Medical History Allergies/Adverse Reactions: Allergies Allergy/AdvReac Type Severity Reaction Status Date / Time No Known Allergies Allergy Verified 04/22/19 07:31 Home Medications: Ambulatory Orders Rivaroxaban [Xarelto -] 20 mg PO DAILY@1800 #14 tablet 05/14/18 *Physical Exam - Vital Signs Last Vital Signs Temp Pulse Resp BP Pulse Ox 97.9 F 88 18 161/111 H 99 04/22/19 07:15 04/22/19 08:30 04/22/19 08:30 04/22/19 08:30 04/22/19 08:30 <Sara Odell - Last Filed: 04/22/19 08:34> - Vital Signs Last Vital Signs Temp Pulse Resp BP Pulse Ox 97.9 F 104 H 16 143/102 H 97 04/22/19 07:15 04/22/19 07:15 04/22/19 07:15 04/22/19 07:15 04/22/19 07:15 <Nava Zhang - Last Filed: 04/22/19 11:59> Heart Score/ECG Review #1 ECG reviewed & interpreted by me at: 08:30 General ECG Interpretation: Sinus Rhythm, Normal Rate, Normal Intervals 04/22/19 08:34 EKG normal sinus rhythm 87 bpm, no interval abnormalities, narrow QRS, ST and T wave segments and morphology normal. Nonspecific T wave abnormality in III only <Sara Odell - Last Filed: 04/22/19 08:34> ED Treatment Course - Medications Given in the ED: ED Medications Discontinued Medications Generic Name Dose Route Start Last Admin Trade Name Freq PRN Reason Stop Dose Admin Chlordiazepoxide HCl 50 mg 04/22/19 07:48 04/22/19 08:27 Librium - PO 04/22/19 07:49 50 mg ONCE ONE Administration Hydromorphone HCl 1 mg 04/22/19 07:54 04/22/19 08:27 Dilaudid Injection - IVPUSH 04/22/19 07:55 1 mg ONCE ONE Administration Ondansetron HCl 4 mg 04/22/19 07:55 04/22/19 08:27 Zofran Injection IVPUSH 04/22/19 07:56 4 mg ONCE ONE Administration <Sara Odell - Last Filed: 04/22/19 08:34> - LABORATORY CBC & Chemistry Diagram: 04/22/19 08:20 04/22/19 08:20 <Nava Zhang - Last Filed: 04/22/19 11:59> Medical Decision Making - Medical Decision Making 04/22/19 08:35 The patient was seen and evaluated in conjunction with midlevel provider under my direct supervision, ancillary studies were reviewed. I agree with the plan as outlined with MANAGER HRIS Leatha. HPI, workup/dispo as outlined. VS reviewed, +tachy and HTN. labs/CT imaging, pain control, reassess ECG unrmarkable, NSR with nonspecific T wave abnormality in III only, no contiguous lead changes, no ST changes. 04/22/19 08:36 <Sara Odell - Last Filed: 04/22/19 08:34> - Medical Decision Making A/P: 33-year-old male with likely alcohol withdrawal symptoms, as well as abdominal pain concerning for recurrence of pancreatitis. -Patient placed in monitored bed -IV access obtained -EKG -Labs including CBC, CMP, PT/INR, type and screen, UA -Librium 50mg PO -Hydromorphone 1 mg IV piggyback for severe abdominal pain -Lactated Ringer's 125 mL/hour -CTAP pancreatic protocol, patient accompanied by me -Admit 04/22/19 09:28 Lipase 469, higher than previous visits AST elev at 69, alk phos elev at 171 04/22/19 11:12 CT reviewed and interpreted by radiology: hypodense changes involving pancreatic tail, possibly sequelae of prior pancreatitis. No inflammatory changes to suggest acute pancreatitis. Small psuedocyst. Distended gallbladder without evidence of cholecystitis. Will request admission for management of alcohol withdrawal/delirium as well as abd pain/vomiting. Patient may need abd MRI given history of splenic vein thrombus and non-compliance with AC. Accepted by Hospitalist, requests CT brain r/o bleed given AMS prior to resuming AC. <Nava Zhang - Last Filed: 04/22/19 11:59> Discharge <Sara Odell - Last Filed: 04/22/19 08:34> - Discharge Information Problems reviewed: Yes - Admission Yes <Nava Zhang - Last Filed: 04/22/19 11:59> - Discharge Information Clinical Impression/Diagnosis: Abdominal pain, Alcohol withdrawal Condition: Guarded CIWA Score Nausea/Vomitin Muscle Tremors: 3 Anxiety: 1-Mildly Anxious Agitation: 1-Slight > Activity Paroxysmal Sweats: 1-Minimal Palms Moist Orientation: 1-Uncertain about Date Tacttile Disturbances: 0-None Auditory Disturbances: 0-None Visual Disturbances: 0-None Headache: 0-None Present CIWA-Ar Total Score: 12 - Admission Criteria OASAS Guidelines: Admission for Medically Managed Detox: Requires at least one of the followin. CIWA greater than 12 2. Seizures within the past 24 hours 3. Delirium tremens within the past 24 hours 4. Hallucinations within the past 24 hours 5. Acute intervention needed for co occurring medical disorder 6. Acute intervention needed for co occurring psychiatric disorder 7. Severe withdrawal that cannot be handled at a lower level of care (continued vomiting, continued diarrhea, abnormal vital signs) requiring intravenous medication and/or fluids 8. <Nava Zhang - Last Filed: 04/22/19 11:59>
[2019-04-22] MEDS ORDERED: chlordiazePOXIDE HCL 25 MG CAPSULE PO ONE (07:48)
[2019-04-22] MEDS ORDERED: HYDROmorphone HCL CARPU-JECT 2 MG/1 ML DISP.SYRIN IVPUSH ONE (07:54)
[2019-04-22] MEDS ORDERED: ONDANSETRON 4 MG/2 ML VIAL IVPUSH ONE (07:55)
[2019-04-22] MEDS ORDERED: HYDROmorphone HCl 2 MG/ML VIAL ONE (08:09)
[2019-04-22] MEDS ORDERED: ONDANSETRON 4 MG/2 ML VIAL ONE (08:10)
[2019-04-22] MEDS ORDERED: chlordiazePOXIDE HCL 25 MG CAPSULE ONE (08:10)
[2019-04-22] MEDS: LACTATED RINGERS SOLUTION 1,000 ML/1,000 ML INFUS.BAG IV SCH ×2 (08:27→21:15)
[2019-04-22 08:48] LABS: BASO % 0.5 % (0-2.0); HEMATOCRIT 37.7 % (35.4-49); HEMOGLOBIN 13.3 GM/dL (11.7-16.9); LYMPH % 21.2 % (8-40); MCH 31.2 pg (25.7-33.7); MCHC 35.2 g/dl (32.0-35.9); MEAN CELL VOLUME 88.8 fl (80-96); MEAN PLT VOLUME 6.5 fl (7.5-11.1); MONO % 9.5 % (3.8-10.2); NEUT % 68.8 % (42.8-82.8); PLATELET COUNT 273 K/MM3 (134-434); RBC 4.24 M/mm3 (4.00-5.60); RDW 16.4 % (11.9-15.9); WHITE BLOOD COUNT 10.7 K/mm3 (4.0-10.0)
[2019-04-22 09:08] LABS: INR 1.01 (0.83-1.09); PROTHROMBIN TIME (PATIENT) 11.9 SEC (9.7-13.0)
[2019-04-22 09:26] LABS: ALBUMIN 3.2 g/dl (3.4-5.0); ALK PHOS 171 U/L (45-117); ANION GAP 10 MMOL/L (8-16); BILIRUBIN,TOTAL 0.7 mg/dL (0.2-1); BLOOD UREA NITROGEN 8.9 mg/dL (7-18); CALCIUM 7.9 mg/dL (8.5-10.1); CHLORIDE 99 mmol/L (98-107); CO2 27 mmol/L (21-32); CREATININE 0.7 mg/dL (0.55-1.3); GLUCOSE,RANDOM 108 mg/dL (74-106); LIPASE 469 U/L (73-393); POTASSIUM 3.4 mmol/L (3.5-5.1); SGOT/AST 69 U/L (15-37); SGPT/ALT 27 U/L (13-61); SODIUM 136 mmol/L (136-145)
[2019-04-22] MEDS ORDERED: SODIUM CHLORIDE 0.9%/KCL 20 MEQ/1,000 ML INFUS.BAG IV SCH (11:15)
[2019-04-22] MEDS ORDERED: THIAMINE HCL 200 MG/2 ML VIAL IVPB ONE (11:54)
[2019-04-22] MEDS ORDERED: FOLIC ACID 1 MG TABLET (FP) PO ONE (11:55)
[2019-04-22] MEDS ORDERED: MULTIVITAMINS (DAILY MVI) TABLET (FP) PO ONE (11:56)
[2019-04-22] MEDS ORDERED: THIAMINE HCL 200 MG/2 ML VIAL ONE (11:57)
[2019-04-22] MEDS ORDERED: FOLIC ACID 1 MG TABLET (FP) ONE (12:11)
[2019-04-22 16:27] VITALS: BMI 27.2
[2019-04-22] MEDS ORDERED: PNEUMOC 13-VAL CONJ-DIP CRM/PF 0.5 ML DISP.SYRIN IM ONE (16:37)
[2019-04-22] MEDS ORDERED: FLU VACCINE QUAD 60 MCG/0.5 ML (MDV 19-20) IM ONE (17:00)
--- NOTE | 2019-04-22 17:04 | HP ---
33 M h/o Etoh abuse, asthma, severe pancreatic w/ necrosis, splenic vein thrombosis presents to ED w/ complaint of abdominal pain in the setting of acute alcohol abuse and intoxication. Patient endorses last drink was last night where he drank about a 5th of hard liquor, then started to feel abdominal pain. In ED pt. was given IVF/librium/banana bag and treated for subsequent Etoh intoxication and impending withdrawal. Patient was supposed to be on Xarelto for splenic vein thrombosis but has not taken any meds in the past 6 or so months. Denies CP/SOB/LOC/fall/bleeding from any source. No N/V/D seen in ED. PE VSS GA AAox3, speaking in full sentences, NAD, slightly tremulous HEENT NC/AT, EOMI, neck supple, dry MM Chest CTAB, no crackles or wheezing CVS S1, S2+, RRR, no m/r/g Abd Soft, grossly non-tender, ND, BS+ Ext No LE edema, no calf tenderness, moves all 4 ext. Vital Signs - 24 hr 04/22/19 04/22/19 04/22/19 07:15 08:30 12:00 Temperature 97.9 F 98.0 F Pulse Rate 104 H Pulse Rate [ 88 87 Apical] Respiratory 16 18 16 Rate Blood Pressure 143/102 H Blood Pressure 161/111 H 160/98 [Left Arm] O2 Sat by Pulse 97 99 98 Oximetry (%) 04/22/19 15:45 Temperature 97.6 F Pulse Rate 81 Pulse Rate [ Apical] Respiratory 16 Rate Blood Pressure 142/82 Blood Pressure [Left Arm] O2 Sat by Pulse 100 Oximetry (%) Laboratory Results - last 24 hr 04/22/19 04/22/19 04/22/19 08:20 08:20 08:20 WBC 10.7 H RBC 4.24 Hgb 13.3 Hct 37.7 MCV 88.8 MCH 31.2 MCHC 35.2 RDW 16.4 H Plt Count 273 MPV 6.5 L Absolute Neuts (auto) 7.4 Neutrophils % 68.8 Lymphocytes % 21.2 D Monocytes % 9.5 Eosinophils % 0.0 D Basophils % 0.5 Nucleated RBC % 0 PT with INR 11.90 INR 1.01 Sodium 136 Potassium 3.4 L Chloride 99 Carbon Dioxide 27 Anion Gap 10 BUN 8.9 Creatinine 0.7 Est GFR (CKD-EPI)AfAm 142.70 Est GFR (CKD-EPI)NonAf 123.13 Random Glucose 108 H Calcium 7.9 L Total Bilirubin 0.7 AST 69 H ALT 27 Alkaline Phosphatase 171 H Troponin I < 0.02 Total Protein 7.0 Albumin 3.2 L Lipase 469 H Blood Type Antibody Screen 04/22/19 08:20 WBC RBC Hgb Hct MCV MCH MCHC RDW Plt Count MPV Absolute Neuts (auto) Neutrophils % Lymphocytes % Monocytes % Eosinophils % Basophils % Nucleated RBC % PT with INR INR Sodium Potassium Chloride Carbon Dioxide Anion Gap BUN Creatinine Est GFR (CKD-EPI)AfAm Est GFR (CKD-EPI)NonAf Random Glucose Calcium Total Bilirubin AST ALT Alkaline Phosphatase Troponin I Total Protein Albumin Lipase Blood Type O POSITIVE Antibody Screen Negative Home Medications Medication Instructions Recorded NK [No Known Home Medication] 04/22/19 Current Medications Generic Name Dose Route Start Last Admin Trade Name Freq PRN Reason Stop Dose Admin Amlodipine Besylate 5 mg 04/22/19 16:15 Norvasc - PO DAILY YUSEF Folic Acid 1 mg 04/23/19 10:00 Folic Acid - PO DAILY YUSEF Lactated Ringer's 1,000 ml in 1,000 mls @ 125 mls/hr 04/22/19 08:00 04/22/19 08:27 Lactated Ringers Solution IV 125 mls/hr ASDIR YUSEF Administration Potassium Chloride/Sodium Chloride 20 meq in 1,000 mls @ 125 mls/hr 04/22/19 11:15 04/22/19 12:08 Ns+20 Meq Kcl - IV 125 mls/hr ASDIR YUSEF Administration Sodium Chloride 1,000 mls @ 125 mls/hr 04/22/19 16:15 Normal Saline - IV ASDIR YUSEF Multivitamins/Minerals/Vitamin C 1 tab 04/23/19 10:00 Tab-A-Vit - PO DAILY YUSEF Pantoprazole Sodium 40 mg 04/22/19 16:15 Protonix - PO DAILY YUSEF Thiamine HCl 500 mg 04/23/19 10:00 Vitamin B1 - PO DAILY YUSEF A/P: 33 M h/o Alcohol Abuse, Childhood Asthma, chronic pancreatitis w/ necrosis, chronic splenic vein thrombosis non-compliant w/ AC, presents to ED intoxicated complaining of LUQ pain and vomiting. LUQ pain likely 2/2 Etoh induced gastritis v.s. sequale from chronic splenic vein thrombosis Non-compliant with any medication (including DOAC) Obtain hepatic panel CT scan abd showing chronic pancreatitis chanegs w/ pseudocyst, without splenomegaly, past MRI in 06/2018 showed chronic splenic vein thrombosis and recommended follow up in 1-2 years as per GI Lipase 469, no active N/V, Dilaudid given in ED which improved patient's abdominal pain Clear diet as tolerated GI consult: Dr Blanco Acute Alcohol Intoxication Received Librium by ED staff, no s/o withdrawal during assessment, continue to monitor for withdrawal Ativan prn if any signs of withdrawal. Monitor CIWA Banana Bag. given cont. with high dose Thiamine (due to intermittent confusion for Wernicke's), MVI, Folate. SW referral for Etoh abstinence Hypokalemia repleted in ED monitor chem DVT Px - Heparin SQ GI Px - PPI Med Surg Visit type - Emergency Visit Emergency Visit: Yes ED Registration Date: 04/22/19 Care time: The patient presented to the Emergency Department on the above date and was hospitalized for further evaluation of their emergent condition. - New Patient This patient is new to me today: Yes Date on this admission: 04/22/19 - Critical Care Critical Care patient: No
[2019-04-22] MEDS: SODIUM CHLORIDE 1,000 ML IV SCH (17:14)
[2019-04-22] MEDS: amLODIPine BESYLATE 5 MG TABLET (FP) PO SCH (17:15)
[2019-04-22] MEDS: PANTOPRAZOLE 40 MG TABLET PO SCH (17:15)
[2019-04-22 17:22] LABS: URINE APPEARANCE CLOUDY; URINE BILIRUBIN NEGATIVE (NEGATIVE); URINE COLOR YELLOW; URINE GLUCOSE (UA) NEGATIVE (NEGATIVE); URINE KETONE NEGATIVE (NEGATIVE); URINE LEUK ESTERASE NEGATIVE (NEGATIVE); URINE NITRITE NEGATIVE (NEGATIVE); URINE PROTEIN NEGATIVE (NEGATIVE)
--- NOTE | 2019-04-22 18:01 | CON.GI ---
Consult Consult Specialty:: GI Referred by:: Hospitalist Service Reason for Consultation:: Pancreatitis - History of Present Illness Chief Complaint: Inebriation and abdominal pain History of Present Illness: 33F admitted for evaluation of abdominal pain. He has been actively drinking. CT scan reveals a small fluid collection near the within the tail of the pancreas. No evidence of pancratic necrosis noted. He was admitted to the ICU with severe alcohol induced pancreatitis with sequelae of splenic vein / portal vein thrombosis. He was started on anticoagulation. He followed up in office once and was advised to follow-up with keyboarding clerk as he was advised. His last abdominal imaging here was outpatient MRI/MRCP 07/09 that revealed pancreatic neck cyst and resolution of severe inflammatory changes at the pancreatic tail. splenic vein thrombosis was again noted. He had an EGD 05/11 while admitted that failed to reveal gastric varices. He continues to drink alcohol. He describes some left sided abdominal pain. - History Source History Provided By: Patient - Past Medical History Pulmonary: Yes: Asthma Gastrointestinal: Yes: Pancreatitis Heme/Onc: Yes: Other (Portal vein thrombosis) Psych: Yes: Addictions (Alcohol) - Past Surgical History Past Surgical History: Yes: None - Alcohol/Substance Use Hx Alcohol Use: No - Smoking History Smoking history: Former smoker Have you smoked in the past 12 months: No - Social History Usual Living Arrangement: Alone History of Recent Travel: Yes Home Medications - Allergies Allergies/Adverse Reactions: Allergies Allergy/AdvReac Type Severity Reaction Status Date / Time No Known Allergies Allergy Verified 04/22/19 07:31 - Home Medications Home Medications: Ambulatory Orders NK [No Known Home Medication] 04/22/19 Family Medical History Other Family History: No family h/o pancreatitis Review of Systems - Review of Systems Constitutional: denies: Chills Cardiovascular: denies: Chest Pain Respiratory: denies: SOB Gastrointestinal: reports: Abdominal Pain Physical Exam-GI Vital Signs: Vital Signs Temperature 97.6 F 04/22/19 15:45 Pulse Rate 81 04/22/19 15:45 Respiratory Rate 16 04/22/19 15:45 Blood Pressure 142/82 04/22/19 15:45 O2 Sat by Pulse Oximetry (%) 100 04/22/19 15:45 Constitutional: Yes: Calm Eyes: No: Sclera Icterus Cardiovascular: Yes: Regular Rate and Rhythm Respiratory: Yes: CTA Bilaterally. No: Diminished Gastrointestinal Inspection: No: Distention, Scars ...Auscultate: Yes: Normoactive Bowel Sounds ...Palpate: Yes: Soft, Tenderness (Mild TTP left abdomen). No: Guarding, Tenderness, Rebound ...Percussion: No: Tympanitic Neurological: Yes: Alert Labs: CBC, BMP 04/22/19 08:20 04/22/19 08:20 INR, PTT INR 1.01 (0.83-1.09) 04/22/19 08:20 Imaging - Results Cat Scan: Report Reviewed, Image Reviewed Problem List - Problems (1) Abdominal pain Assessment/Plan: ? if mild pancreatitis at this time not reflected on CT scan. No evidence of pancreatic necrosis on current CT scan. He does have a small pancreatic tail hypodensity, possibly representing a psuedocyst. If worsening abdominal pain, development of fevers, worsening leukocytosis, will need repeat imaging to exclude progression of pancreatic tail findings. Advise: IV Hydration NPO Monitor for etoh withdrawal Mesenteric vasculature not commented upon. Would discuss with radiology regarding this. If persistent splenic/PVT will need A/C and heme evaluation. Patient made aware that continued alcohol consumption will likely lead to life threatening complications. This was explained to him Code(s): R10.9 - UNSPECIFIED ABDOMINAL PAIN
[2019-04-22 18:17] LABS: ALBUMIN 2.8 g/dl (3.4-5.0); BILIRUBIN,DIRECT 0.3 mg/dL (0.0-0.2); BILIRUBIN,TOTAL 0.8 mg/dL (0.2-1); TOT PROT 6.2 g/dl (6.4-8.2)
[2019-04-22] MEDS ORDERED: HEPARIN NA (PORCINE) 5,000 UNITS/ML 1ML VIAL IVPUSH PRN ×2 (22:02)
[2019-04-22] MEDS ORDERED: HEPARIN INFUSION - 25,000 UNITS/500 ML INFUS.BAG IVPB SCH (22:15)
[2019-04-23] MEDS: LACTATED RINGERS SOLUTION 1,000 ML/1,000 ML INFUS.BAG IV SCH ×2 (04:29→12:40)
[2019-04-23 09:15] LABS: BASO % 0.6 % (0-2.0); EOS % 0.8 % (0-4.5); HEMATOCRIT 32.2 % (35.4-49); LYMPH % 33.5 % (8-40); MCH 30.9 pg (25.7-33.7); MCHC 34.3 g/dl (32.0-35.9); MEAN CELL VOLUME 90.2 fl (80-96); MEAN PLT VOLUME 7.1 fl (7.5-11.1); MONO % 12.5 % (3.8-10.2); NEUT % 52.6 % (42.8-82.8); PLATELET COUNT 181 K/MM3 (134-434); RBC 3.57 M/mm3 (4.00-5.60); RDW 16.5 % (11.9-15.9); WHITE BLOOD COUNT 6.9 K/mm3 (4.0-10.0)
[2019-04-23] MEDS ORDERED: ACETAMINOPHEN 325 MG TABLET (FP) PO ONE (09:19)
--- NOTE | 2019-04-23 09:24 | PN ---
Progress Note (short form) - Note Progress Note: Spoke with Dr. Pitts last night. Left ureteral stone and chronic splenic vein thrombosis. Can get heme opinion re: A/C and yurology evaluation. ? if the stone is contributing to his left sided pain as pancreas findings not particularly remarkable Problem List - Problems (1) Abdominal pain Code(s): R10.9 - UNSPECIFIED ABDOMINAL PAIN
[2019-04-23 09:55] LABS: ALBUMIN 2.6 g/dl (3.4-5.0); BILIRUBIN,TOTAL 1.7 mg/dL (0.2-1); BLOOD UREA NITROGEN 4.4 mg/dL (7-18); CREATININE 0.6 mg/dL (0.55-1.3); TOT PROT 5.6 g/dl (6.4-8.2)
[2019-04-23] MEDS ORDERED: POTASSIUM CHLORIDE TABS 20 MEQ TABLET.ER (FP) PO ONE (11:20)
[2019-04-23] MEDS: PANTOPRAZOLE 40 MG TABLET PO SCH (11:47)
[2019-04-23] MEDS: amLODIPine BESYLATE 5 MG TABLET (FP) PO SCH (11:47)
[2019-04-23] MEDS: FOLIC ACID 1 MG TABLET (FP) PO SCH (11:48)
[2019-04-23] MEDS: THIAMINE HCL 100 MG TABLET (FP) PO SCH (11:48)
[2019-04-23] MEDS: MULTIVITAMINS (DAILY MVI) TABLET (FP) PO SCH (11:48)
[2019-04-23] MEDS: SODIUM CHLORIDE 1,000 ML IV SCH ×3 (12:58→23:08)
--- NOTE | 2019-04-23 16:15 | EKG ---
Test Reason : Blood Pressure : / mmHG Vent. Rate : 087 BPM Atrial Rate : 087 BPM P-R Int : 146 ms QRS Dur : 092 ms QT Int : 426 ms P-R-T Axes : 013 067 027 degrees QTc Int : 512 ms NORMAL SINUS RHYTHM POSSIBLE ANTERIOR INFARCT , AGE UNDETERMINED PROLONGED QT NONSPECIFIC ST ABNORMALITY ABNORMAL ECG Confirmed by MD ALLIE, DEVIKA ([id number]) on 04/23/2019 4:14:50 PM Referred By: Confirmed By:DEVIKA KELLEY MD
[2019-04-23] MEDS ORDERED: MAG HYDROX/ALH/SMC/DPHA/LIDO 240 ML MOUTHWASH MM ONE (16:33)
[2019-04-23] MEDS ORDERED: amLODIPine BESYLATE 5 MG TABLET (FP) PO ONE (16:35)
--- NOTE | 2019-04-23 16:44 | PN ---
Physical Exam: 33 M h/o Etoh abuse, asthma, severe pancreatic w/ necrosis, splenic vein thrombosis presents to ED w/ complaint of abdominal pain in the setting of acute alcohol abuse and intoxication. 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 Patient evaluated by GI service who recommends repeat iamging if symptoms worsen or if fevers develop. Patient started on Heparin drip for treatment of chronic splenic vein thrombosis which is showing interval resolution. Currently afebrile , abdominal pain improved c/o GERD-like throat burning on drinking fluids, will give GI cocktail and monitor. PE VSS GA AAox3, speaking in full sentences, NAD, sitting up in bed, tolerating clears HEENT NC/AT, EOMI, neck supple, dry MM, no oral thrush, no oral ulcers Chest CTAB, no crackles or wheezing CVS S1, S2+, RRR, no m/r/g Abd grossly soft, NT, ND, BS+, no guarding Ext No LE edema, no calf tenderness, moves all 4 ext. Vital Signs - 24 hr 04/22/19 04/22/19 04/22/19 18:00 21:00 23:00 Temperature 98.1 F Pulse Rate 77 76 Respiratory 20 20 20 Rate Blood Pressure 141/84 143/70 O2 Sat by Pulse 98 Oximetry (%) 04/23/19 04/23/19 04/23/19 05:51 09:01 11:39 Temperature 98.8 F 99.3 F 99.9 F H Pulse Rate 77 70 64 Respiratory 20 20 20 Rate Blood Pressure 135/75 149/69 151/75 O2 Sat by Pulse Oximetry (%) 04/23/19 15:00 Temperature 98.8 F Pulse Rate 80 Respiratory 20 Rate Blood Pressure 155/86 O2 Sat by Pulse Oximetry (%) Laboratory Results - last 24 hr 04/22/19 04/22/19 04/22/19 13:00 17:12 17:20 WBC RBC Hgb Hct MCV MCH MCHC RDW Plt Count MPV Absolute Neuts (auto) Neutrophils % Lymphocytes % Monocytes % Eosinophils % Basophils % Nucleated RBC % PTT (Actin FS) Sodium Potassium Chloride Carbon Dioxide Anion Gap BUN Creatinine Est GFR (CKD-EPI)AfAm Est GFR (CKD-EPI)NonAf POC Glucometer 97 Random Glucose Calcium Total Bilirubin 0.8 Direct Bilirubin 0.3 H AST 58 H ALT 23 Alkaline Phosphatase 150 H Total Protein 6.2 L Albumin 2.8 L Lipase Urine Color Yellow Urine Appearance Cloudy Urine pH 8.0 D Ur Specific [place] 1.036 H Urine Protein Negative Urine Glucose (UA) Negative Urine Ketones Negative Urine Blood Negative Urine Nitrite Negative Urine Bilirubin Negative Urine Urobilinogen 1.0 Ur Leukocyte Esterase Negative Stool Occult Blood 04/22/19 04/23/19 04/23/19 21:11 01:00 05:48 WBC RBC Hgb Hct MCV MCH MCHC RDW Plt Count MPV Absolute Neuts (auto) Neutrophils % Lymphocytes % Monocytes % Eosinophils % Basophils % Nucleated RBC % PTT (Actin FS) Sodium Potassium Chloride Carbon Dioxide Anion Gap BUN Creatinine Est GFR (CKD-EPI)AfAm Est GFR (CKD-EPI)NonAf POC Glucometer 65 81 Random Glucose Calcium Total Bilirubin Direct Bilirubin AST ALT Alkaline Phosphatase Total Protein Albumin Lipase Urine Color Urine Appearance Urine pH Ur Specific [place] Urine Protein Urine Glucose (UA) Urine Ketones Urine Blood Urine Nitrite Urine Bilirubin Urine Urobilinogen Ur Leukocyte Esterase Stool Occult Blood Positive 04/23/19 04/23/19 04/23/19 07:28 07:28 11:30 WBC 6.9 RBC 3.57 L Hgb 11.0 L Hct 32.2 L MCV 90.2 MCH 30.9 MCHC 34.3 RDW 16.5 H Plt Count 181 D MPV 7.1 L Absolute Neuts (auto) 3.6 Neutrophils % 52.6 D Lymphocytes % 33.5 D Monocytes % 12.5 H Eosinophils % 0.8 D Basophils % 0.6 Nucleated RBC % 0 PTT (Actin FS) 47.5 H Sodium 131 L Potassium 3.0 L Chloride 95 L Carbon Dioxide 25 Anion Gap 12 BUN 4.4 L Creatinine 0.6 Est GFR (CKD-EPI)AfAm 152.04 Est GFR (CKD-EPI)NonAf 131.18 POC Glucometer Random Glucose 66 L Calcium 8.0 L Total Bilirubin 1.7 H Direct Bilirubin AST 64 H ALT 19 Alkaline Phosphatase 143 H Total Protein 5.6 L Albumin 2.6 L Lipase 577 H Urine Color Urine Appearance Urine pH Ur Specific [place] Urine Protein Urine Glucose (UA) Urine Ketones Urine Blood Urine Nitrite Urine Bilirubin Urine Urobilinogen Ur Leukocyte Esterase Stool Occult Blood 04/23/19 12:15 WBC RBC Hgb Hct MCV MCH MCHC RDW Plt Count MPV Absolute Neuts (auto) Neutrophils % Lymphocytes % Monocytes % Eosinophils % Basophils % Nucleated RBC % PTT (Actin FS) Sodium Potassium Chloride Carbon Dioxide Anion Gap BUN Creatinine Est GFR (CKD-EPI)AfAm Est GFR (CKD-EPI)NonAf POC Glucometer 141 Random Glucose Calcium Total Bilirubin Direct Bilirubin AST ALT Alkaline Phosphatase Total Protein Albumin Lipase Urine Color Urine Appearance Urine pH Ur Specific [place] Urine Protein Urine Glucose (UA) Urine Ketones Urine Blood Urine Nitrite Urine Bilirubin Urine Urobilinogen Ur Leukocyte Esterase Stool Occult Blood Home Medications Medication Instructions Recorded NK [No Known Home Medication] 04/22/19 Current Medications Generic Name Dose Route Start Last Admin Trade Name Freq PRN Reason Stop Dose Admin Amlodipine Besylate 10 mg 04/24/19 10:00 Norvasc - PO DAILY YUSEF Folic Acid 1 mg 04/23/19 10:00 04/23/19 11:48 Folic Acid - PO 1 mg DAILY YUSEF Administration Heparin Sodium (Porcine) 1,000 unit 04/22/19 22:02 04/23/19 13:07 Heparin - IVPUSH 1,000 unit PRN PRN Administration Heparin Heparin Sodium (Porcine) 5,000 unit 04/22/19 22:02 Heparin - IVPUSH PRN PRN Heparin Sodium Chloride 1,000 mls @ 125 mls/hr 04/22/19 16:15 04/23/19 12:58 Normal Saline - IV 125 mls/hr ASDIR YUSEF Administration Heparin Sodium/Dextrose 25,000 units in 500 mls @ 20 mls/hr 04/22/19 22:15 13:15 Heparin Infusion - IVPB 1,100 units/hr TITR YUSEF 22 mls/hr Titration Protocol 1,000 UNITS/HR Multivitamins/Minerals/Vitamin C 1 tab 04/23/19 10:00 04/23/19 11:48 Tab-A-Vit - PO 1 tab DAILY YUSEF Administration Pantoprazole Sodium 40 mg 04/22/19 16:15 04/23/19 11:47 Protonix - PO 40 mg DAILY YUSEF Administration Thiamine HCl 500 mg 04/23/19 10:00 04/23/19 11:48 Vitamin B1 - PO 500 mg DAILY YUSEF Administration A/P: 33 M h/o Alcohol Abuse, Childhood Asthma, chronic pancreatitis w/ necrosis, chronic splenic vein thrombosis non-compliant w/ AC, presents to ED intoxicated complaining of LUQ pain and vomiting. Abdominal pain improving after Etoh cessation, ?due to chronic pancreatitis due to Etoh intake , Abdominal imaging showing no radiologically significant pancreatic necrosis or deterioration, splenic vein thrombosis present with interval improvement, start on therapeutic Heparin drip Lipase trending up slightly, so is Tbili will continue to monitor clinically, if patient starts to deteriorate GI recommending transfer to tertiary center Clear diet as tolerated Heme evaluation for splenic vein thrombosis and treatment choice: Dr Segundo GI consult: Dr Blanco Acute Alcohol Intoxication cont. with high dose Thiamine (due to intermittent confusion for Wernicke's), MVI, Folate. Cont. Librium protocol, Ativan for breakthrough withdrawal symptoms, watch for DTs SW referral for Etoh abstinence L ureteral stone found on Abd/Pelvic CT, ?cause of L abdominal pain Urology evaluation: Dr. Merary Spicer Hypokalemia repleted in ED monitor chem closely DVT Px - Heparin SQ (therapeutic) GI Px - PPI, magic mouth wash Med Surg Visit type - Emergency Visit Emergency Visit: Yes ED Registration Date: 04/22/19 Care time: The patient presented to the Emergency Department on the above date and was hospitalized for further evaluation of their emergent condition. - New Patient This patient is new to me today: No - Critical Care Critical Care patient: No - Discharge Referral Referred to [facility] Med P.C.: No
[2019-04-23] MEDS ORDERED: MAGNESIUM SULF 50% (8.12 MEQ/2 ML-1 GM VIAL) IVPB ONE (16:46)
--- NOTE | 2019-04-23 17:27 | CON.GU ---
Consult Consult Specialty:: Urology Reason for Consultation:: Left ureteral calculus - History of Present Illness Chief Complaint: Abdominal Pain - Past Medical History Pulmonary: Yes: Asthma Gastrointestinal: Yes: Pancreatitis Psych: Yes: Addictions (Alcohol) - Past Surgical History Past Surgical History: Yes: None - Alcohol/Substance Use Hx Alcohol Use: No - Smoking History Smoking history: Former smoker Have you smoked in the past 12 months: No - Social History Usual Living Arrangement: Alone History of Recent Travel: Yes Home Medications - Allergies Allergies/Adverse Reactions: Allergies Allergy/AdvReac Type Severity Reaction Status Date / Time No Known Allergies Allergy Verified 04/22/19 07:31 - Home Medications Home Medications: Ambulatory Orders NK [No Known Home Medication] 04/22/19 Physical Exam- Vital Signs: Vital Signs Temperature 98.8 F 04/23/19 15:00 Pulse Rate 80 04/23/19 15:00 Respiratory Rate 20 04/23/19 15:00 Blood Pressure 155/86 04/23/19 15:00 O2 Sat by Pulse Oximetry (%) 98 04/22/19 21:00 Labs: CBC, BMP 04/23/19 07:28 04/23/19 07:28 Assessment/Plan Pt.s chart reviewd. Ct Scan of the abd and pelvis reviwed. Small left UV jn. calc notrd. No hydronephrosis. Will examine the pt. tomorrow. No active intervention contemplated at this point. Thank you
--- NOTE | 2019-04-23 19:56 | CONSULT ---
Consult Consult Specialty:: Hematology Referred by:: Medicine Reason for Consultation:: Splenic vein thrombosis - History of Present Illness Chief Complaint: Admitted History of Present Illness: Patient with history as documented below. Known splenic vein thrombosis, noted on CT scan in early 2019. Admitted now with alcohol intoxication and abdominal pain, with current up CT scan revealing persistence of splenic vein thrombosis. History as per admission note: h/o Etoh abuse, asthma, severe pancreatic w/ necrosis, splenic vein thrombosis presents to ED w/ complaint of abdominal pain in the setting of acute alcohol abuse and intoxication. Patient endorses last drink was last night where he drank about a 5th of hard liquor, then started to feel abdominal pain. In ED pt. was given IVF/librium/banana bag and treated for subsequent Etoh intoxication and impending withdrawal. Patient was supposed to be on Xarelto for splenic vein thrombosis but has not taken any meds in the past 6 or so months. Denies CP/SOB/LOC/fall/bleeding from any source. No N/V/D seen in ED." Patient reports ongoing abdominal pain, improved compared to at time admission. Patient is unaware of any other thromboembolic events. Denies a family history of thrombosis. - History Source History Provided By: Medical Record Limitations to Obtaining History: Poor Historian - Past Medical History Pulmonary: Yes: Asthma Gastrointestinal: Yes: Pancreatitis Psych: Yes: Addictions (Alcohol) - Past Surgical History Past Surgical History: Yes: None - Alcohol/Substance Use Hx Alcohol Use: No - Smoking History Smoking history: Former smoker Have you smoked in the past 12 months: No - Social History Usual Living Arrangement: Alone History of Recent Travel: Yes Home Medications - Allergies Allergies/Adverse Reactions: Allergies Allergy/AdvReac Type Severity Reaction Status Date / Time No Known Allergies Allergy Verified 04/22/19 07:31 - Home Medications Home Medications: Ambulatory Orders NK [No Known Home Medication] 04/22/19 Review of Systems - Review of Systems Constitutional: reports: Weakness Eyes: reports: No Symptoms Neck: reports: No Symptoms Cardiovascular: denies: Chest Pain, Shortness of Breath Respiratory: denies: Cough Gastrointestinal: reports: Abdominal Pain Musculoskeletal: reports: No Symptoms Integumentary: reports: No Symptoms Physical Exam Vital Signs: Vital Signs Temperature 98.8 F 04/23/19 15:00 Pulse Rate 83 04/23/19 18:07 Respiratory Rate 20 04/23/19 18:07 Blood Pressure 144/73 04/23/19 18:07 O2 Sat by Pulse Oximetry (%) 98 04/22/19 21:00 Constitutional: Yes: No Distress, Calm Eyes: Yes: Conjunctiva Clear HENT: Yes: Atraumatic, Normocephalic Neck: Yes: Supple, Trachea Midline. No: Lymphadenopathy Cardiovascular: Yes: S1, S2. No: Gallop, Murmur Respiratory: Yes: Regular, CTA Bilaterally Gastrointestinal: Yes: Normal Bowel Sounds, Soft. No: Ascites, Hepatomegaly, Splenomegaly Extremities: Yes: WNL Edema: No Neurological: Yes: Alert, Oriented ...Motor Strength: WNL Labs: CBC, BMP 04/23/19 07:28 04/23/19 07:28 Assessment/Plan Known splenic vein and portal vein thrombosis, documented noted on CT scan in early 2019. In context of alcohol abuse, pancreatitis, and fatty liver. Current CT reveals decrease in extent of thrombus in splenic vein, and resolution of portal vein thrombosis. Since the observed clot burden has decreased spontaneously over the past 10 months, while off anticoagulation, I see no need for anticoagulation at this time. Noting the patients propensity to alcoholic stupor, as well the documented presence of varices, anticoagulation is probably best avoided.
[2019-04-24] MEDS: SODIUM CHLORIDE 1,000 ML IV SCH (06:34)
[2019-04-24 08:26] LABS: BASO % 0.5 % (0-2.0); EOS % 1.2 % (0-4.5); HEMATOCRIT 34.2 % (35.4-49); HEMOGLOBIN 11.8 GM/dL (11.7-16.9); MCH 31.4 pg (25.7-33.7); MCHC 34.5 g/dl (32.0-35.9); MEAN CELL VOLUME 90.9 fl (80-96); MEAN PLT VOLUME 7.3 fl (7.5-11.1); MONO % 7.8 % (3.8-10.2); NEUT % 61.5 % (42.8-82.8); PLATELET COUNT 189 K/MM3 (134-434); RBC 3.76 M/mm3 (4.00-5.60); RDW 16.5 % (11.9-15.9); WHITE BLOOD COUNT 7.2 K/mm3 (4.0-10.0)
[2019-04-24 08:59] LABS: ALBUMIN 2.8 g/dl (3.4-5.0); BILIRUBIN,DIRECT 0.4 mg/dL (0.0-0.2); BILIRUBIN,TOTAL 1.3 mg/dL (0.2-1); MAGNESIUM 1.9 mg/dL (1.8-2.4); PHOSPHOROUS 3.1 mg/dL (2.5-4.9); TOT PROT 6.4 g/dl (6.4-8.2)
[2019-04-24 09:10] LABS: ALBUMIN 2.8 g/dl (3.4-5.0); BILIRUBIN,TOTAL 1.3 mg/dL (0.2-1); CALCIUM 7.8 mg/dL (8.5-10.1); CREATININE 0.6 mg/dL (0.55-1.3); POTASSIUM 3.1 mmol/L (3.5-5.1); TOT PROT 6.4 g/dl (6.4-8.2)
[2019-04-24 09:29] LABS: BLOOD UREA NITROGEN 1.5 mg/dL (7-18)
[2019-04-24] MEDS: PANTOPRAZOLE 40 MG TABLET PO SCH (10:04)
[2019-04-24] MEDS: MULTIVITAMINS (DAILY MVI) TABLET (FP) PO SCH (10:04)
[2019-04-24] MEDS: FOLIC ACID 1 MG TABLET (FP) PO SCH (10:04)
[2019-04-24] MEDS: THIAMINE HCL 100 MG TABLET (FP) PO SCH (10:04)
[2019-04-24] MEDS: amLODIPine BESYLATE 10 MG TABLET (FP) PO SCH (10:04)
[2019-04-24] MEDS ORDERED: POTASSIUM CHLORIDE TABS 20 MEQ TABLET.ER (FP) PO ONE ×2 (10:30→13:00)
[2019-04-24 11:55] LABS: CALCIUM 7.9 mg/dL (8.5-10.1); CREATININE 0.9 mg/dL (0.55-1.3)
[2019-04-24 12:08] LABS: BLOOD UREA NITROGEN 1.5 mg/dL (7-18); POTASSIUM 2.7 mmol/L (3.5-5.1)
--- NOTE | 2019-04-24 12:21 | PN.GI ---
GI Progress Note Subjective: Tolerating clears States feeling better No abdominal pain - Objective Vital Signs: Vital Signs Temperature 98.8 F 04/24/19 09:32 Pulse Rate 86 04/24/19 09:32 Respiratory Rate 20 04/24/19 09:32 Blood Pressure 130/59 L 04/24/19 09:32 O2 Sat by Pulse Oximetry (%) 97 04/23/19 21:00 Constitutional: Calm Eyes: No: Sclera Icterus Cardiovascular: Yes: Regular Rate and Rhythm Respiratory: Yes: CTA Bilaterally Gastrointestinal Inspection: No: Distention ...Auscultate: Yes: Normoactive Bowel Sounds ...Palpate: Yes: Soft. No: Hepatomegaly, Splenomegaly, Tenderness Edema: No Neurological: Yes: Alert Labs: CBC, BMP 04/24/19 07:22 04/24/19 10:40 INR, PTT INR 1.01 (0.83-1.09) 04/22/19 08:20 Problem List - Problems (1) Abdominal pain Assessment/Plan: left sided ? iof secondary to ureteral stone ? if resolving mild acute pancreatitis Advancing diet Heme to comment on chronic SVT Advised need for complete alcohol cessation Withdrawal precautions per PMD Correct lytes per PMD Code(s): R10.9 - UNSPECIFIED ABDOMINAL PAIN
[2019-04-24] MEDS: KCL 10 MEQ IVPB 10 MEQ/100 ML INFUS.BAG IVPB SCH ×3 (12:54→17:31)
--- NOTE | 2019-04-24 15:31 | PN ---
Progress Note (short form) - Note Progress Note: Seen in follow up. No events overnight. heparin infusion stopped. Abdominal pain improved. Inpatient meds reviewed: Current Medications Amlodipine Besylate (Norvasc -) 10 mg PO DAILY [facility] Last Admin: 04/24/19 10:04 Dose: 10 mg Folic Acid (Folic Acid -) 1 mg PO DAILY [facility] Last Admin: 04/24/19 10:04 Dose: 1 mg Potassium Chloride (Potassium Chloride 10 Meq Premix Ivpb -) 10 meq in 100 mls @ 100 mls/hr IVPB Q60M [facility] Stop: 04/24/19 15:59 Last Admin: 04/24/19 14:28 Dose: 100 mls/hr Multivitamins/Minerals/Vitamin C (Tab-A-Vit -) 1 tab PO DAILY [facility] Last Admin: 04/24/19 10:04 Dose: 1 tab Pantoprazole Sodium (Protonix -) 40 mg PO DAILY [facility] Last Admin: 04/24/19 10:04 Dose: 40 mg Thiamine HCl (Vitamin B1 -) 500 mg PO DAILY [facility] Last Admin: 04/24/19 10:04 Dose: 500 mg On Examination: Last Vital Signs Temp Pulse Resp BP Pulse Ox 98.8 F 86 20 130/59 L 97 04/24/19 09:32 04/24/19 09:32 04/24/19 09:32 04/24/19 09:32 04/23/19 21:00 General: In no acute distress, supine in bed. Extremities: No pallor or icterus. No pedal edema. Chest: breathing comfortably Abdomen: non-distended Neuro: Oriented, non-focal. Labs: CBC, BMP 04/24/19 07:22 04/24/19 10:40 Assessment. Known splenic vein and portal vein thrombosis, documented on CT scan in early 2019, in context of alcohol abuse, pancreatitis, and fatty liver. Current CT reveals decrease in extent of thrombus in splenic vein, and resolution of portal vein thrombosis. Since the observed clot burden has decreased spontaneously over the past 10 months, while off anticoagulation,no need for anticoagulation at this time. Noting the patients propensity to alcoholic stupor, as well the documented presence of varices, anticoagulation is probably best avoided. Follow up CT 3-4 months would be prudent.
--- NOTE | 2019-04-24 18:18 | PN ---
Physical Exam: 33 M h/o Etoh abuse, asthma, severe pancreatic w/ necrosis, splenic vein thrombosis presents to ED w/ complaint of abdominal pain in the setting of acute alcohol abuse and intoxication. 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 Heme evaluated pt. deemed to DC heparin drip as thrombus improving and pt. still drinks, abdominal pain much improved, tolerating PO, VSS. Patient clinically improving. PE VSS GA AAox3, speaking in full sentences, NAD, sitting up in bed, tolerating clears HEENT NC/AT, EOMI, neck supple, dry MM, no oral thrush, no oral ulcers Chest CTAB, no crackles or wheezing CVS S1, S2+, RRR, no m/r/g Abd grossly soft, NT, ND, BS+, no guarding Ext No LE edema, no calf tenderness, moves all 4 ext. Vital Signs - 24 hr 04/23/19 04/23/19 04/24/19 21:00 22:00 01:55 Temperature 98.7 F Pulse Rate 79 73 Respiratory 20 20 20 Rate Blood Pressure 118/86 152/70 O2 Sat by Pulse 97 Oximetry (%) 04/24/19 04/24/19 04/24/19 06:00 09:32 14:00 Temperature 98.3 F 98.8 F 99.7 F H Pulse Rate 70 86 96 H Respiratory 20 20 20 Rate Blood Pressure 129/77 130/59 L 127/61 O2 Sat by Pulse Oximetry (%) Laboratory Results - last 24 hr 04/23/19 04/23/19 04/23/19 17:48 19:18 21:15 WBC RBC Hgb Hct MCV MCH MCHC RDW Plt Count MPV Absolute Neuts (auto) Neutrophils % Lymphocytes % Monocytes % Eosinophils % Basophils % Nucleated RBC % PTT (Actin FS) 66.1 H Sodium Potassium Chloride Carbon Dioxide Anion Gap BUN Creatinine Est GFR (CKD-EPI)AfAm Est GFR (CKD-EPI)NonAf POC Glucometer 111 Random Glucose Calcium Phosphorus Magnesium Total Bilirubin Direct Bilirubin AST ALT Alkaline Phosphatase Total Protein Albumin Lipase Stool Occult Blood Positive 04/24/19 04/24/19 04/24/19 06:28 07:22 07:22 WBC 7.2 RBC 3.76 L Hgb 11.8 Hct 34.2 L MCV 90.9 MCH 31.4 MCHC 34.5 RDW 16.5 H Plt Count 189 MPV 7.3 L Absolute Neuts (auto) 4.4 Neutrophils % 61.5 Lymphocytes % 29.0 Monocytes % 7.8 Eosinophils % 1.2 Basophils % 0.5 Nucleated RBC % 0 PTT (Actin FS) 28.2 Sodium Potassium Chloride Carbon Dioxide Anion Gap BUN Creatinine Est GFR (CKD-EPI)AfAm Est GFR (CKD-EPI)NonAf POC Glucometer 84 Random Glucose Calcium Phosphorus Magnesium Total Bilirubin Direct Bilirubin AST ALT Alkaline Phosphatase Total Protein Albumin Lipase Stool Occult Blood 04/24/19 04/24/19 04/24/19 07:22 07:22 10:40 WBC RBC Hgb Hct MCV MCH MCHC RDW Plt Count MPV Absolute Neuts (auto) Neutrophils % Lymphocytes % Monocytes % Eosinophils % Basophils % Nucleated RBC % PTT (Actin FS) Sodium 133 L 130 L Potassium 3.1 L 2.7 L* Chloride 97 L 96 L Carbon Dioxide 25 23 Anion Gap 11 11 BUN 1.5 L* 1.5 L* Creatinine 0.6 0.9 Est GFR (CKD-EPI)AfAm 152.04 128.70 Est GFR (CKD-EPI)NonAf 131.18 111.04 POC Glucometer Random Glucose 79 133 H Calcium 7.8 L 7.9 L Phosphorus 3.1 Magnesium 1.9 Total Bilirubin 1.3 H 1.3 H Direct Bilirubin 0.4 H AST 49 H 50 H ALT 19 18 Alkaline Phosphatase 148 H 147 H Total Protein 6.4 6.4 Albumin 2.8 L 2.8 L Lipase 759 H Stool Occult Blood 04/24/19 04/24/19 11:45 17:34 WBC RBC Hgb Hct MCV MCH MCHC RDW Plt Count MPV Absolute Neuts (auto) Neutrophils % Lymphocytes % Monocytes % Eosinophils % Basophils % Nucleated RBC % PTT (Actin FS) Sodium Potassium Chloride Carbon Dioxide Anion Gap BUN Creatinine Est GFR (CKD-EPI)AfAm Est GFR (CKD-EPI)NonAf POC Glucometer 99 128 Random Glucose Calcium Phosphorus Magnesium Total Bilirubin Direct Bilirubin AST ALT Alkaline Phosphatase Total Protein Albumin Lipase Stool Occult Blood Current Medications Generic Name Dose Route Start Last Admin Trade Name Freq PRN Reason Stop Dose Admin Amlodipine Besylate 10 mg 04/24/19 10:00 04/24/19 10:04 Norvasc - PO 10 mg DAILY YUSEF Administration Folic Acid 1 mg 04/23/19 10:00 04/24/19 10:04 Folic Acid - PO 1 mg DAILY YUSEF Administration Multivitamins/Minerals/Vitamin C 1 tab 04/23/19 10:00 04/24/19 10:04 Tab-A-Vit - PO 1 tab DAILY YUSEF Administration Pantoprazole Sodium 40 mg 04/22/19 16:15 04/24/19 10:04 Protonix - PO 40 mg DAILY YUSEF Administration Thiamine HCl 500 mg 04/23/19 10:00 04/24/19 10:04 Vitamin B1 - PO 500 mg DAILY YUSEF Administration A/P: 33 M h/o Alcohol Abuse, Childhood Asthma, chronic pancreatitis w/ necrosis, chronic splenic vein thrombosis non-compliant w/ AC, presents to ED intoxicated complaining of LUQ pain and vomiting. Abdominal pain Much improved after cessation of Etoh, heprin drip stopped as per Heme recommendations Lipase trending up slightly, likely 2/2 chronic pancreatitis due to Etoh consumption, will monitor, pt. improving clinically however. Clear diet >>> general diet Heme evaluation: Dr Segundo GI consult: Dr Blanco Acute Alcohol Intoxication cont. with high dose Thiamine for one more day then switch to regular dose (due to intermittent confusion for Wernicke's), MVI, Folate. Cont. Librium protocol, Ativan for breakthrough withdrawal symptoms, watch for DTs SW referral for Etoh abstinence L ureteral stone found on Abd/Pelvic CT, NTD right now as per Urology recs, will follow as outpatient Urology evaluation: Dr. Merary Spicer Hypokalemia Needs aggressive replenishment with KCL 40 BID, daily lytes, if K continues to drop despite aggressive replacement, place central line and monitor in ICU monitor chem closely DVT Px - Heparin SQ GI Px - PPI Med Surg Visit type - Emergency Visit Emergency Visit: Yes ED Registration Date: 04/22/19 Care time: The patient presented to the Emergency Department on the above date and was hospitalized for further evaluation of their emergent condition. - New Patient This patient is new to me today: No - Critical Care Critical Care patient: No - Discharge Referral Referred to [facility] Med P.C.: No
[2019-04-25] MEDS: MULTIVITAMINS (DAILY MVI) TABLET (FP) PO SCH (10:17)
[2019-04-25] MEDS: PANTOPRAZOLE 40 MG TABLET PO SCH (10:18)
[2019-04-25] MEDS: amLODIPine BESYLATE 10 MG TABLET (FP) PO SCH (10:18)
[2019-04-25] MEDS: FOLIC ACID 1 MG TABLET (FP) PO SCH (10:18)
[2019-04-25] MEDS: THIAMINE HCL 100 MG TABLET (FP) PO SCH (10:18)
[2019-04-25 11:27] LABS: BASO % 0.4 % (0-2.0); EOS % 1.4 % (0-4.5); HEMATOCRIT 35.6 % (35.4-49); HEMOGLOBIN 12.1 GM/dL (11.7-16.9); LYMPH % 23.3 % (8-40); MCH 31.7 pg (25.7-33.7); MCHC 33.8 g/dl (32.0-35.9); MEAN CELL VOLUME 93.5 fl (80-96); MEAN PLT VOLUME 7.3 fl (7.5-11.1); MONO % 6.8 % (3.8-10.2); NEUT % 68.1 % (42.8-82.8); PLATELET COUNT 200 K/MM3 (134-434); RBC 3.81 M/mm3 (4.00-5.60); WHITE BLOOD COUNT 8.4 K/mm3 (4.0-10.0)
[2019-04-25 11:46] LABS: ALBUMIN 2.8 g/dl (3.4-5.0); BILIRUBIN,DIRECT 0.2 mg/dL (0.0-0.2); BILIRUBIN,TOTAL 0.7 mg/dL (0.2-1); BLOOD UREA NITROGEN 3.1 mg/dL (7-18); CALCIUM 8.7 mg/dL (8.5-10.1); CREATININE 0.7 mg/dL (0.55-1.3); POTASSIUM 3.6 mmol/L (3.5-5.1); TOT PROT 6.9 g/dl (6.4-8.2)
[2019-04-25] MEDS ORDERED: POTASSIUM CHLORIDE TABS 20 MEQ TABLET.ER (FP) PO SCH (12:00)
[2019-04-25] MEDS ORDERED: HEPARIN NA (PORCINE) 5,000 UNITS/ML 1ML VIAL SQ SCH (14:00)
--- NOTE | 2019-04-25 15:12 | PN ---
Progress Note (short form) - Note Progress Note: GI follow up Tolerating diet Denies abdominal pain Per heme, no AC ? resolved pancreatitis of the tail Patient should have GI follow up Please call back with questions
[2019-04-25 15:45] VITALS: BP 130/74; PULSE 87; TEMP 98.7
--- NOTE | 2019-04-25 16:57 | DS ---
Physical Exam: 33 M h/o Etoh abuse, asthma, severe pancreatic w/ necrosis, splenic vein thrombosis presents to ED w/ complaint of abdominal pain in the setting of acute alcohol abuse and intoxication. 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 Patient was evaluated by Hematology service who recommended to not anticoagulate for splenic thrombosis as it is resolving without AC and patient is still drinking and has bleeding risk. Additionally patient evaluated by GI service for chronic pancreatitis and was cleared by them for discharge and recommended to follow up in GI clinic. Patient feels well, tolerating PO, denies abdominal pain, ambulating around unit, requesting to go home. PE VSS GA AAox3, speaking in full sentences, NAD, sitting up in bed, tolerating clears HEENT NC/AT, EOMI, neck supple, dry MM, no oral thrush, no oral ulcers Chest CTAB, no crackles or wheezing CVS S1, S2+, RRR, no m/r/g Abd soft, NT, ND, BS+, no guarding, no LUQ/RUQ pain Ext No LE edema, no calf tenderness, moves all 4 ext., ambulates w/o assistance Vital Signs - 24 hr 04/24/19 04/24/19 04/24/19 18:00 21:00 22:00 Temperature 98.4 F Pulse Rate 89 94 H Respiratory 20 20 20 Rate Blood Pressure 132/76 142/84 O2 Sat by Pulse Oximetry (%) 04/25/19 04/25/19 04/25/19 02:00 06:00 09:00 Temperature 99.7 F H 98.6 F Pulse Rate 86 73 Respiratory 20 20 Rate Blood Pressure 136/80 138/70 O2 Sat by Pulse 100 Oximetry (%) 04/25/19 04/25/19 10:00 15:43 Temperature 98.9 F 98.7 F Pulse Rate 72 87 Respiratory 20 20 Rate Blood Pressure 140/65 130/74 O2 Sat by Pulse Oximetry (%) Laboratory Results - last 24 hr 04/24/19 04/24/19 04/24/19 10:40 17:34 21:21 WBC RBC Hgb Hct MCV MCH MCHC RDW Plt Count MPV Absolute Neuts (auto) Neutrophils % Lymphocytes % Monocytes % Eosinophils % Basophils % Nucleated RBC % PTT (Actin FS) Sodium Potassium Chloride Carbon Dioxide Anion Gap BUN Creatinine Est GFR (CKD-EPI)AfAm Est GFR (CKD-EPI)NonAf POC Glucometer 128 129 Random Glucose Calcium Total Bilirubin Direct Bilirubin AST ALT Alkaline Phosphatase Total Protein Albumin Lipase Hep A IgM Ab Confirm Negative Hep Bs Antigen Negative Hep B Core IgM Ab Negative Hepatitis C Ab (EIA) <0.1 04/25/19 04/25/19 04/25/19 06:30 09:30 09:30 WBC 8.4 RBC 3.81 L Hgb 12.1 Hct 35.6 MCV 93.5 MCH 31.7 MCHC 33.8 RDW 17.0 H Plt Count 200 MPV 7.3 L Absolute Neuts (auto) 5.7 Neutrophils % 68.1 Lymphocytes % 23.3 Monocytes % 6.8 Eosinophils % 1.4 Basophils % 0.4 Nucleated RBC % 0 PTT (Actin FS) 29.5 Sodium Potassium Chloride Carbon Dioxide Anion Gap BUN Creatinine Est GFR (CKD-EPI)AfAm Est GFR (CKD-EPI)NonAf POC Glucometer 91 Random Glucose Calcium Total Bilirubin Direct Bilirubin AST ALT Alkaline Phosphatase Total Protein Albumin Lipase Hep A IgM Ab Confirm Hep Bs Antigen Hep B Core IgM Ab Hepatitis C Ab (EIA) 04/25/19 09:30 WBC RBC Hgb Hct MCV MCH MCHC RDW Plt Count MPV Absolute Neuts (auto) Neutrophils % Lymphocytes % Monocytes % Eosinophils % Basophils % Nucleated RBC % PTT (Actin FS) Sodium 135 L Potassium 3.6 Chloride 100 Carbon Dioxide 25 Anion Gap 10 BUN 3.1 L Creatinine 0.7 Est GFR (CKD-EPI)AfAm 142.70 Est GFR (CKD-EPI)NonAf 123.13 POC Glucometer Random Glucose 163 H Calcium 8.7 Total Bilirubin 0.7 Direct Bilirubin 0.2 AST 51 H ALT 21 Alkaline Phosphatase 138 H Total Protein 6.9 Albumin 2.8 L Lipase 904 H Hep A IgM Ab Confirm Hep Bs Antigen Hep B Core IgM Ab Hepatitis C Ab (EIA) Home Medications Medication Instructions Recorded NK [No Known Home Medication] 04/22/19 Current Medications Generic Name Dose Route Start Last Admin Trade Name Freq PRN Reason Stop Dose Admin Amlodipine Besylate 10 mg 04/24/19 10:00 04/25/19 10:18 Norvasc - PO 10 mg DAILY YUSEF Administration Folic Acid 1 mg 04/23/19 10:00 04/25/19 10:18 Folic Acid - PO 1 mg DAILY YUSEF Administration Heparin Sodium (Porcine) 5,000 unit 04/25/19 14:00 04/25/19 13:33 Heparin - SQ 5,000 unit TID YUSEF Administration Multivitamins/Minerals/Vitamin C 1 tab 04/23/19 10:00 04/25/19 10:17 Tab-A-Vit - PO 1 tab DAILY YUSEF Administration Pantoprazole Sodium 40 mg 04/22/19 16:15 04/25/19 10:18 Protonix - PO 40 mg DAILY YUSEF Administration Potassium Chloride 40 meq 04/25/19 12:00 04/25/19 13:33 K-Dur - PO 40 meq DAILY YUSEF Administration Thiamine HCl 500 mg 04/23/19 10:00 04/25/19 10:18 Vitamin B1 - PO 500 mg DAILY YUSEF Administration 33 M h/o Etoh abuse, chronic pancreatitis w/ history of pancreatic necrosis, splenic vein thrombosis admitted for acute Etoh intoxication and withdrawal, and acute on chronic pancreatitis. Abdominal pain Much improved after cessation of Etoh, heparin drip stopped as per Heme recommendations, no indication to continue anticoagulation Lipase trending up slightly, likely 2/2 chronic pancreatitis due to Etoh consumption, cleared by GI for discharge and to follow in GI clinic Heme evaluation: Dr Segundo follow in clinic GI consult: Dr Blanco follow in clinic Acute Alcohol Intoxication Resolved DC with Thiamine/FA/MV DC Librium protocol Had an extensive talk with patient that if he continues to drink alcohol he can further cause injury to his liver and pancreas which may result in intoxication , respiratory depression, life threatening bleeding and . Patient understands the repercussions of drinking and is willing to stop but wants to do so on his own. L ureteral stone found on Abd/Pelvic CT, NTD right now as per Urology recs, will follow as outpatient Urology evaluation: Dr. Merary Spicer Hypokalemia resolved, repleted. Plan to discharge with KCL 20mEQ PO daily x3 days and repeat labs with PCP in 4 days. Disposition: Patient to be discharged home with clinic follow ups with GI, Hematology and his primary care provider. Patient advised if he feels abdominal pain, N/V/D, chest pain, SOB, bleeding from any source, confusion, dizziness, syncope, LOC to go to ER immediately. Patient spoken to at length to stop drinking alcohol and its health repercussions, patient understands and wishes to stop drinking on his own. Discharge meds: Thaimine 100mg daily FA 1 mg daily 1 MV tab daily Pantoprazole 40mg ER daily KCl 20mEQ tab daily x3 days Minutes to complete discharge: 40 Discharge Summary Problems reviewed: Yes Reason For Visit: ALCOHOL WITHDRAWAL SYNDROME Current Active Problems Abdominal pain (Acute) Alcohol withdrawal (Acute) Condition: Guarded - Instructions - Home Medications Comprehensive Discharge Medication List: Ambulatory Orders NK [No Known Home Medication] 04/22/19 This patient is new to me today: No Emergency Visit: Yes ED Registration Date: 04/22/19 Care time: The patient presented to the Emergency Department on the above date and was hospitalized for further evaluation of their emergent condition. Critical Care patient: No - Discharge Referral Referred to [facility] No
== END 2019-04-25 17:59 | disposition home or self-care (01) | DRG 282 ==
LOC: JER 06:56 → JERBED 11:15 → J5S 14:41
DX: K85.20 Alcohol induced acute pancreatitis without necrosis or infection (principal); K86.0 Alcohol-induced chronic pancreatitis; E87.6 Hypokalemia; F10.129 Alcohol abuse with intoxication, unspecified; F10.96 Alcohol use, unspecified with alcohol-induced persisting amnestic disorder; R10.12 Left upper quadrant pain; I82.890 Acute embolism and thrombosis of other specified veins; N20.1 Calculus of ureter
CPT/HCPCS: 36415; 70450-TC; 74177-TC; 80048; 80053; 80074; 80076; 81003; 82272; 82962; 83690; 83735; 84100; 84484; 85025; 85610; 85730; 86850; 86900; 86901; 93005; 93010; 99285-25; G0008; J1644; J7030; Q2036; Q9967

== ENCOUNTER 2020-03-15 06:26 | Emergency (ER) | payer OTHER ==
[2020-03-15 06:50] VITALS: BMI 25.0
[2020-03-15] MEDS ORDERED: SODIUM CHLORIDE 0.9% 500 ML INFUS.BAG IV ONE (07:34)
[2020-03-15] MEDS ORDERED: MAG HYDROX/AL HYDROX/SIMETH 30 ML UNIT-DOSE CUP PO ONE (07:34)
[2020-03-15] MEDS ORDERED: FAMOTIDINE 20 MG/50 ML IVPB 20 MG/50 ML MG IVPB ONE (07:34)
[2020-03-15] MEDS ORDERED: MAG HYDROX/AL HYDROX/SIMETH 30 ML UNIT-DOSE CUP ONE (07:56)
[2020-03-15 08:04] LABS: BASO % 0.6 % (0-2.0); HEMATOCRIT 51.9 % (35.4-49); HEMOGLOBIN 17.3 GM/dL (11.7-16.9); LYMPH % 10.6 % (8-40); MCH 31.7 pg (25.7-33.7); MCHC 33.4 g/dl (32.0-35.9); MEAN PLT VOLUME 7.1 fl (7.5-11.1); MONO % 8.7 % (3.8-10.2); NEUT % 80.1 % (42.8-82.8); PLATELET COUNT 415 K/MM3 (134-434); RBC 5.47 M/mm3 (4.00-5.60); RDW 14.4 % (11.9-15.9); WHITE BLOOD COUNT 16.1 K/mm3 (4.0-10.0)
[2020-03-15 08:08] LABS: INR 1.07 (0.83-1.09); PROTHROMBIN TIME (PATIENT) 12.9 SEC (9.7-13.0)
[2020-03-15 08:21] LABS: EPI CELLS 17 /uL (0-25.1); HYALINE CASTS 18 /uL (0-3.1); PH,URINE 5.5 (5.0-8.0); URINE APPEARANCE CLOUDY; URINE BACTERIA 25 /uL (0-1359); URINE BILIRUBIN NEGATIVE (NEGATIVE); URINE COLOR DK YELLOW; URINE GLUCOSE (UA) NEGATIVE (NEGATIVE); URINE KETONE 2+ (NEGATIVE); URINE LEUK ESTERASE NEGATIVE (NEGATIVE); URINE NITRITE NEGATIVE (NEGATIVE); URINE PROTEIN 4+ (NEGATIVE); URINE RBC 3 /uL (0-23.9); URINE WBC 9 /uL (0-25.8)
[2020-03-15 08:23] LABS: CHLORIDE 97 mmol/L (98-107); POTASSIUM 3.7 mmol/L (3.5-5.1)
[2020-03-15 08:25] LABS: ALBUMIN 4.5 g/dl (3.4-5.0); BLOOD UREA NITROGEN 19.3 mg/dL (7-18); CALCIUM 9.4 mg/dL (8.5-10.1); CO2 19 mmol/L (21-32); GLUCOSE,RANDOM 107 mg/dL (74-106); LIPASE 96 U/L (73-393)
[2020-03-15 08:28] LABS: CREATININE 1.1 mg/dL (0.55-1.3); SGOT/AST 37 U/L (15-37)
[2020-03-15 08:30] LABS: BILIRUBIN,TOTAL 1.6 mg/dL (0.2-1); TOT PROT 9.1 g/dl (6.4-8.2)
[2020-03-15 08:31] LABS: ALK PHOS 185 U/L (45-117)
[2020-03-15 08:32] LABS: ANION GAP 21 MMOL/L (8-16); SGPT/ALT 29 U/L (13-61); SODIUM 137 mmol/L (136-145)
[2020-03-15] MEDS ORDERED: LACTATED RINGERS SOLUTION 1000 ML INFUS.BAG IV ONE (08:38)
[2020-03-15 08:43] VITALS: BP 122/75; PULSE 99; TEMP 97.6
[2020-03-15] MEDS ORDERED: ACETAMINOPHEN 500 MG TABLET (FP) PO ONE (09:42)
[2020-03-15] MEDS ORDERED: ACETAMINOPHEN 325 MG TABLET (FP) ONE (09:48)
[2020-03-15] MEDS ORDERED: chlordiazePOXIDE HCL 25 MG CAPSULE PO ONE (10:55)
[2020-03-15] MEDS ORDERED: chlordiazePOXIDE HCL 25 MG CAPSULE ONE (11:12)
== END 2020-03-15 13:27 | disposition home or self-care (01) ==
LOC: JER 06:26
PROC: 3E033GC Introduction of Other Therapeutic Substance into Peripheral Vein, Percutaneous Approach (ICD-10-PCS; principal; 2020-03-15)
DX: K29.21 Alcoholic gastritis with bleeding (principal); F10.239 Alcohol dependence with withdrawal, unspecified
CPT/HCPCS: 36415; 74177-TC; 80053; 81003; 82272; 83605; 83690; 84484; 85025; 85610; 85730; 86850; 86900; 86901; 87086; 93005; 93010; 99285-25

== ENCOUNTER 2020-07-23 00:20 | Emergency (ER) | payer OTHER ==
[2020-07-23 00:56] VITALS: TEMP 98.4; BMI 32.9
[2020-07-23] MEDS ORDERED: MAG HYDROX/AL HYDROX/SIMETH 30 ML UNIT-DOSE CUP PO ONE (02:10)
[2020-07-23] MEDS ORDERED: MAG HYDROX/AL HYDROX/SIMETH 30 ML UNIT-DOSE CUP ONE (02:15)
[2020-07-23 02:52] LABS: BASO % 0.3 % (0-2.0); EOS % 0.1 % (0-4.5); HEMATOCRIT 48.9 % (35.4-49); MCH 31.7 pg (25.7-33.7); MCHC 34.7 g/dl (32.0-35.9); MEAN CELL VOLUME 91.1 fl (80-96); MONO % 7.8 % (3.8-10.2); NEUT % 64.8 % (42.8-82.8); PLATELET COUNT 310 K/MM3 (134-434); RBC 5.36 M/mm3 (4.00-5.60)
[2020-07-23 03:08] LABS: CALCIUM 8.5 mg/dL (8.5-10.1)
[2020-07-23 03:09] LABS: ALBUMIN 4.2 g/dl (3.4-5.0); BLOOD UREA NITROGEN 11.2 mg/dL (7-18)
[2020-07-23 03:13] LABS: TOT PROT 8.8 g/dl (6.4-8.2)
[2020-07-23 03:14] LABS: BILIRUBIN,TOTAL 1.6 mg/dL (0.2-1)
[2020-07-23] MEDS ORDERED: POTASSIUM CHLORIDE TABS 20 MEQ TABLET.ER (FP) PO ONE ×2 (03:46→04:56)
[2020-07-23] MEDS ORDERED: chlordiazePOXIDE HCL 25 MG CAPSULE PO ONE (03:47)
[2020-07-23] MEDS ORDERED: chlordiazePOXIDE HCL 25 MG CAPSULE ONE (04:56)
[2020-07-23 05:26] VITALS: BP 126/70; PULSE 91
== END 2020-07-23 06:40 | disposition home or self-care (01) ==
LOC: JER 00:20
DX: F10.220 Alcohol dependence with intoxication, uncomplicated (principal)
CPT/HCPCS: 36415; 80053; 80307; 83690; 85025; 93005; 93010; 99284-25

== ENCOUNTER 2020-07-23 08:25 | Inpatient (IN) | payer OTHER ==
[2020-07-23 09:52] VITALS: BMI 31.1
[2020-07-23] MEDS ORDERED: ONDANSETRON *ODT* 4 MG TABLET SL PRN (12:18)
[2020-07-23] MEDS ORDERED: MAGNESIUM CITRATE 300 ML BOTTLE PO PRN (12:18)
[2020-07-23] MEDS ORDERED: NICOTINE POLACRILEX 2 MG GUM BUC PRN (12:18)
[2020-07-23] MEDS ORDERED: LORazepam 1 MG TABLET PO PRN (12:18)
[2020-07-23] MEDS ORDERED: BISMUTH SUBSALICYLATE 524 MG/30 ML PO PRN (12:18)
[2020-07-23] MEDS ORDERED: ACETAMINOPHEN 325 MG TABLET (FP) PO PRN ×2 (12:18)
[2020-07-23] MEDS ORDERED: IBUPROFEN 400 MG TABLET (FP) PO PRN (12:18)
[2020-07-23] MEDS ORDERED: MENTHOL/PHENOL 1 EACH UD MM PRN (12:18)
[2020-07-23] MEDS ORDERED: MAGNESIUM HYDROX 2400MG/30ML ORAL SUSPENSION 30 ML CUP PO PRN (12:18)
[2020-07-23] MEDS ORDERED: MAG HYDROX/AL HYDROX/SIMETH 30 ML UNIT-DOSE CUP PO PRN (12:18)
[2020-07-23] MEDS ORDERED: METHOCARBAMOL 500 MG TABLET PO PRN (12:18)
[2020-07-23] MEDS: PRENATAL VITAMINS W/ FOLIC ACID TABLET (FP) PO SCH (12:57)
[2020-07-23] MEDS: hydrOXYzine PAMOATE 25 MG CAPSULE (FP) PO SCH ×3 (13:01→22:20)
[2020-07-23 16:23] LABS: HEMATOCRIT 44.5 % (35.4-49); HEMOGLOBIN 15.5 GM/dL (11.7-16.9); MCH 31.6 pg (25.7-33.7); MCHC 34.8 g/dl (32.0-35.9); MEAN PLT VOLUME 7.3 fl (7.5-11.1); PLATELET COUNT 248 K/MM3 (134-434); RBC 4.89 M/mm3 (4.00-5.60); RDW 14.2 % (11.9-15.9); WHITE BLOOD COUNT 12.4 K/mm3 (4.0-10.0)
[2020-07-23 17:13] LABS: BLOOD UREA NITROGEN 13.1 mg/dL (7-18)
[2020-07-23 17:14] LABS: CALCIUM 8.6 mg/dL (8.5-10.1)
[2020-07-23 17:18] LABS: CREATININE 0.9 mg/dL (0.55-1.3)
[2020-07-23 17:19] LABS: TOT PROT 8.2 g/dl (6.4-8.2)
[2020-07-23 17:20] LABS: BILIRUBIN,TOTAL 2.1 mg/dL (0.2-1)
[2020-07-23] MEDS: LORazepam 2 MG TABLET PO SCH ×2 (18:36→22:20)
[2020-07-23] MEDS: THIAMINE HCL 100 MG TABLET (FP) PO SCH (22:20)
[2020-07-23] MEDS: MELATONIN 5 MG TABLETS PO SCH (22:21)
[2020-07-24] MEDS: LORazepam 2 MG TABLET PO SCH ×4 (06:04→22:35)
[2020-07-24] MEDS: hydrOXYzine PAMOATE 25 MG CAPSULE (FP) PO SCH ×5 (06:04→22:35)
[2020-07-24] MEDS: PRENATAL VITAMINS W/ FOLIC ACID TABLET (FP) PO SCH (10:26)
[2020-07-24] MEDS: MELATONIN 5 MG TABLETS PO SCH (22:35)
[2020-07-24] MEDS: THIAMINE HCL 100 MG TABLET (FP) PO SCH (22:35)
[2020-07-25] MEDS: LORazepam 1 MG TABLET PO SCH ×4 (06:11→22:14)
[2020-07-25] MEDS: hydrOXYzine PAMOATE 25 MG CAPSULE (FP) PO SCH ×5 (06:11→22:14)
[2020-07-25] MEDS: PRENATAL VITAMINS W/ FOLIC ACID TABLET (FP) PO SCH (10:19)
[2020-07-25 11:02] LABS: ALBUMIN 3.6 g/dl (3.4-5.0)
[2020-07-25 11:06] LABS: BILIRUBIN,DIRECT 0.4 mg/dL (0.0-0.2)
[2020-07-25 11:07] LABS: BILIRUBIN,TOTAL 1.4 mg/dL (0.2-1); TOT PROT 7.5 g/dl (6.4-8.2)
[2020-07-25] MEDS: THIAMINE HCL 100 MG TABLET (FP) PO SCH (22:14)
[2020-07-25] MEDS: MELATONIN 5 MG TABLETS PO SCH (22:14)
[2020-07-26] MEDS ORDERED: LORazepam 0.5 MG TABLET PO PRN
[2020-07-26] MEDS: hydrOXYzine PAMOATE 25 MG CAPSULE (FP) PO SCH ×5 (05:59→22:21)
[2020-07-26] MEDS: LORazepam 0.5 MG TABLET PO SCH ×4 (05:59→22:21)
[2020-07-26 08:06] LABS: SARS-CoV-2 NAA Not Detected (Not Detected)
[2020-07-26] MEDS: PRENATAL VITAMINS W/ FOLIC ACID TABLET (FP) PO SCH (10:21)
[2020-07-26] MEDS: MELATONIN 5 MG TABLETS PO SCH (22:20)
[2020-07-26] MEDS: THIAMINE HCL 100 MG TABLET (FP) PO SCH (22:20)
[2020-07-27] MEDS ORDERED: LORazepam 0.5 MG TABLET PO ONE (05:00)
[2020-07-27] MEDS: hydrOXYzine PAMOATE 25 MG CAPSULE (FP) PO SCH ×2 (05:47→10:32)
[2020-07-27] MEDS: PRENATAL VITAMINS W/ FOLIC ACID TABLET (FP) PO SCH (10:32)
[2020-07-27 12:55] VITALS: BP 153/90; PULSE 86; TEMP 97.5
== END 2020-07-27 10:23 | disposition home or self-care (01) | DRG 775 ==
LOC: YASAS 08:25 → Y6N 12:15
PROVIDERS: ADMIT Allergy & Immunology; ATTEND Allergy & Immunology
PROC: HZ2ZZZZ Detoxification Services for Substance Abuse Treatment (ICD-10-PCS; principal; 2020-07-23)
DX: F10.230 Alcohol dependence with withdrawal, uncomplicated (principal); F41.1 Generalized anxiety disorder; F10.24 Alcohol dependence with alcohol-induced mood disorder; F10.282 Alcohol dependence with alcohol-induced sleep disorder; R74.01 Elevation of levels of liver transaminase levels; Z86.718 Personal history of other venous thrombosis and embolism; Z87.19 Personal history of other diseases of the digestive system
CPT/HCPCS: 36415; 80053; 80076; 80307; 83690; 85025; 85027; 86780; 93005; 93010; 99284-25; C9803; U0003; U0005

== ENCOUNTER 2020-09-27 22:17 | Emergency (ER) | payer OTHER ==
[2020-09-27 22:25] VITALS: BMI 28.2
[2020-09-27] MEDS ORDERED: ONDANSETRON 4 MG/2 ML VIAL IVPUSH ONE (23:38)
[2020-09-27] MEDS ORDERED: SODIUM CHLORIDE 1,000 ML IV STA (23:38)
[2020-09-27] MEDS ORDERED: FAMOTIDINE 20 MG/50 ML IVPB 20 MG/50 ML MG IVPB ONE (23:38)
[2020-09-27] MEDS ORDERED: ACETAMINOPHEN 1000 MG/100 ML VIAL (NON FORMULARY) IVPB ONE (23:38)
[2020-09-28] MEDS ORDERED: MAG HYDROX/AL HYDROX/SIMETH 30 ML UNIT-DOSE CUP PO ONE (00:06)
[2020-09-28] MEDS ORDERED: FAMOTIDINE 20 MG/50 ML IVPB 20 MG/50 ML MG IVPB ONE (00:18)
[2020-09-28] MEDS ORDERED: ACETAMINOPHEN INJECTION 100 ML IVPB ONE (00:18)
[2020-09-28] MEDS ORDERED: ONDANSETRON 4 MG/2 ML VIAL ONE (00:19)
[2020-09-28] MEDS ORDERED: MAG HYDROX/AL HYDROX/SIMETH 30 ML UNIT-DOSE CUP ONE (00:44)
[2020-09-28 00:55] LABS: BASO % 0.3 % (0-2.0); HEMATOCRIT 53.8 % (35.4-49); HEMOGLOBIN 18.8 GM/dL (11.7-16.9); LYMPH % 22.1 % (8-40); MCHC 34.9 g/dl (32.0-35.9); MEAN CELL VOLUME 91.6 fl (80-96); MEAN PLT VOLUME 6.4 fl (7.5-11.1); MONO % 7.4 % (3.8-10.2); NEUT % 70.2 % (42.8-82.8); PLATELET COUNT 274 10^3/uL (134-434); RBC 5.88 M/mm3 (4.00-5.60); WHITE BLOOD COUNT 9.5 K/mm3 (4.0-10.0)
[2020-09-28 01:19] LABS: CALCIUM 8.1 mg/dL (8.5-10.1)
[2020-09-28 01:20] LABS: BLOOD UREA NITROGEN 23.9 mg/dL (7-18)
[2020-09-28 01:23] LABS: CREATININE 1.1 mg/dL (0.55-1.3)
[2020-09-28 01:25] VITALS: BP 142/99; PULSE 99; TEMP 97.9
[2020-09-28 01:25] LABS: BILIRUBIN,TOTAL 1.3 mg/dL (0.2-1)
== END 2020-09-28 05:00 | disposition home or self-care (01) ==
LOC: JER 22:17
PROC: 3E033NZ Introduction of Analgesics, Hypnotics, Sedatives into Peripheral Vein, Percutaneous Approach (ICD-10-PCS; principal; 2020-09-27)
PROC: 3E033GC Introduction of Other Therapeutic Substance into Peripheral Vein, Percutaneous Approach (ICD-10-PCS; 2020-09-27)
PROC: 3E033GC Introduction of Other Therapeutic Substance into Peripheral Vein, Percutaneous Approach (ICD-10-PCS; 2020-09-27)
PROC: 3E0337Z Introduction of Electrolytic and Water Balance Substance into Peripheral Vein, Percutaneous Approach (ICD-10-PCS; 2020-09-27)
DX: R10.9 Unspecified abdominal pain (principal)
CPT/HCPCS: 36415; 71045-TC-FY; 80053; 83690; 85025; 93005; 93010; 99285-25; J0131

== ENCOUNTER 2020-10-14 23:53 | Inpatient (IN) | payer OTHER ==
[2020-10-15] MEDS ORDERED: FAMOTIDINE 20 MG/50 ML IVPB 20 MG/50 ML MG IVPB ONE ×2 (02:17→02:20)
[2020-10-15] MEDS ORDERED: ONDANSETRON 4 MG/2 ML VIAL IVPUSH ONE (02:17)
[2020-10-15] MEDS ORDERED: ACETAMINOPHEN 1000 MG/100 ML VIAL (NON FORMULARY) IVPB ONE (02:17)
[2020-10-15] MEDS ORDERED: ACETAMINOPHEN INJECTION 100 ML IVPB ONE (02:19)
[2020-10-15] MEDS ORDERED: ONDANSETRON 4 MG/2 ML VIAL ONE (02:20)
[2020-10-15] MEDS ORDERED: PANTOPRAZOLE SODIUM 40 MG VIAL IVPUSH ONE (02:44)
[2020-10-15] MEDS ORDERED: OCTREOTIDE ACETATE 50 MCG/1 ML - 1 ML VIAL IVPUSH ONE (02:44)
[2020-10-15] MEDS ORDERED: SODIUM CHLORIDE 0.9% 500 ML INFUS.BAG IV ONE (02:56)
[2020-10-15 02:58] LABS: BASO % 0.5 % (0-2.0); EOS % 0.2 % (0-4.5); HEMATOCRIT 47.2 % (35.4-49); HEMOGLOBIN 16.4 GM/dL (11.7-16.9); LYMPH % 21.4 % (8-40); MCH 32.4 pg (25.7-33.7); MCHC 34.8 g/dl (32.0-35.9); MEAN CELL VOLUME 93.2 fl (80-96); MEAN PLT VOLUME 6.1 fl (7.5-11.1); MONO % 5.2 % (3.8-10.2); NEUT % 72.7 % (42.8-82.8); PLATELET COUNT 469 10^3/uL (134-434); RBC 5.07 M/mm3 (4.00-5.60); RDW 15.1 % (11.9-15.9); WHITE BLOOD COUNT 9.4 K/mm3 (4.0-10.0)
[2020-10-15] MEDS ORDERED: CEFTRIAXONE 1 GM in DEXTROSE 5%-WATER - 100 ML IVPB ONE (02:58)
[2020-10-15] MEDS ORDERED: OCTREOTIDE ACETATE 200 MCG, OCTREOTIDE ACETATE 1,000 MCG in DEXTROSE 5%-WATER - 496 ML IVPB SCH ×2 (03:00→10:00)
[2020-10-15 03:06] LABS: INR 0.99 (0.83-1.09)
[2020-10-15] MEDS ORDERED: PANTOPRAZOLE SODIUM 40 MG/100 ML BAG IVPB ONE (03:10)
[2020-10-15] MEDS ORDERED: PANTOPRAZOLE SODIUM 40 MG VIAL ONE ×2 (03:10→10:31)
[2020-10-15] MEDS ORDERED: CEFTRIAXONE 1 GM/50 ML BAG ONE (03:10)
[2020-10-15] MEDS ORDERED: OCTREOTIDE ACETATE 100 MCG/1 ML ONE (03:11)
[2020-10-15 03:18] LABS: LIPASE 351 U/L (73-393); MAGNESIUM 2.3 mg/dL (1.8-2.4)
[2020-10-15 03:21] LABS: PHOSPHOROUS 3.4 mg/dL (2.5-4.9)
[2020-10-15 03:26] LABS: LACTIC ACID 3.9 mmol/L (0.4-2.0)
[2020-10-15 03:37] LABS: CHLORIDE 94 mmol/L (98-107); SODIUM 136 mmol/L (136-145)
[2020-10-15 03:39] LABS: ALBUMIN 3.9 g/dl (3.4-5.0); ANION GAP 18 MMOL/L (8-16); BLOOD UREA NITROGEN 14.2 mg/dL (7-18); CALCIUM 8.3 mg/dL (8.5-10.1); CO2 23 mmol/L (21-32); GLUCOSE,RANDOM 145 mg/dL (74-106)
[2020-10-15 03:42] LABS: CREATININE 0.9 mg/dL (0.55-1.3); SGOT/AST 179 U/L (15-37); SGPT/ALT 73 U/L (13-61)
[2020-10-15 03:44] LABS: TOT PROT 8.9 g/dl (6.4-8.2)
[2020-10-15 03:45] LABS: ALK PHOS 179 U/L (45-117)
[2020-10-15] MEDS ORDERED: LACTATED RINGERS SOLUTION 1,000 ML/1,000 ML INFUS.BAG IV SCH (04:15)
[2020-10-15] MEDS: KCL 10 MEQ IVPB 10 MEQ/100 ML INFUS.BAG IVPB SCH ×6 (04:40→15:49)
[2020-10-15 05:14] LABS: ALBUMIN 3.4 g/dl (3.4-5.0); BLOOD UREA NITROGEN 12.6 mg/dL (7-18); CALCIUM 7.6 mg/dL (8.5-10.1)
[2020-10-15 05:17] LABS: CREATININE 0.7 mg/dL (0.55-1.3)
[2020-10-15 05:19] LABS: TOT PROT 7.4 g/dl (6.4-8.2)
[2020-10-15 05:59] LABS: LACTIC ACID 3.4 mmol/L (0.4-2.0)
[2020-10-15] MEDS ORDERED: SODIUM CHLORIDE 1,000 ML IV SCH (07:00)
[2020-10-15 07:32] LABS: HEMATOCRIT 41.1 % (35.4-49); HEMOGLOBIN 14.3 GM/dL (11.7-16.9); MCH 32.6 pg (25.7-33.7); MCHC 34.9 g/dl (32.0-35.9); MEAN CELL VOLUME 93.4 fl (80-96); MEAN PLT VOLUME 6.2 fl (7.5-11.1); PLATELET COUNT 354 10^3/uL (134-434); RDW 14.9 % (11.9-15.9)
[2020-10-15] MEDS ORDERED: FOLIC ACID INJECTION - 1 MG, THIAMINE HCL 100 MG, MULTIVIT INJECTION ADULT 10 ML in SOD... IVPB ONE (08:00)
[2020-10-15] MEDS ORDERED: LORazepam 1 MG TABLET PO PRN ×2 (08:58→09:02)
[2020-10-15] MEDS ORDERED: LORazepam 2 MG/ML SDV VIAL IVPUSH SCH (10:00)
[2020-10-15] MEDS ORDERED: PANTOPRAZOLE SODIUM 40 MG VIAL IVPUSH SCH (10:00)
[2020-10-15] MEDS ORDERED: KCL 10 MEQ IVPB 10 MEQ/100 ML INFUS.BAG IVPB ONE ×2 (10:31→10:32)
[2020-10-15] MEDS ORDERED: LORazepam 1 MG TABLET ONE ×2 (10:33→11:17)
[2020-10-15] MEDS: THIAMINE HCL 200 MG/2 ML VIAL IVPB SCH (10:47)
[2020-10-15] MEDS: LORazepam 1 MG TABLET PO SCH ×3 (10:47→23:03)
[2020-10-15] MEDS ORDERED: LORazepam 1 MG TABLET PO SCH (11:00)
[2020-10-15] MEDS ORDERED: KCL 10 MEQ IVPB 10 MEQ/100 ML INFUS.BAG IVPB SCH (15:45)
[2020-10-15] MEDS: PANTOPRAZOLE 40 MG TABLET PO SCH (15:48)
[2020-10-15] MEDS: SODIUM CHLORIDE 1,000 ML IV SCH (16:52)
[2020-10-15 20:38] LABS: COCAINE, UR NEGATIVE (NEGATIVE); URINE AMPHETAMINES NEGATIVE (NEGATIVE); URINE BARBITURATES NEGATIVE (NEGATIVE)
[2020-10-15 20:42] LABS: METHADONE, UR NEGATIVE (NEGATIVE); OPIATES, URI NEGATIVE (NEGATIVE); PHENCYCLIDINE,URINE NEGATIVE (NEGATIVE); URINE BENZODIAZEPINES NEGATIVE (NEGATIVE)
[2020-10-15] MEDS ORDERED: cefTRIAXone SODIUM 1 GM VIAL ONE (21:43)
[2020-10-15] MEDS ORDERED: DEXTROSE 5%-WATER - 50 ML IVPB ONE (21:43)
[2020-10-15] MEDS: CEFTRIAXONE 1 GM in DEXTROSE 5%-WATER - 50 ML IVPB SCH (21:44)
[2020-10-15] MEDS: MORPHINE SULFATE 2 MG/ML VIAL IVPUSH PRN (22:26)
[2020-10-16] MEDS: SODIUM CHLORIDE 1,000 ML IV SCH ×2 (03:30→17:57)
[2020-10-16] MEDS: LORazepam 1 MG TABLET PO SCH ×4 (05:08→23:28)
[2020-10-16 08:01] LABS: BASO % 0.5 % (0-2.0); EOS % 1.9 % (0-4.5); HEMATOCRIT 38.5 % (35.4-49); HEMOGLOBIN 13.3 GM/dL (11.7-16.9); LYMPH % 20.4 % (8-40); MCH 32.8 pg (25.7-33.7); MCHC 34.6 g/dl (32.0-35.9); MEAN CELL VOLUME 94.9 fl (80-96); MEAN PLT VOLUME 7.2 fl (7.5-11.1); NEUT % 69.2 % (42.8-82.8); PLATELET COUNT 289 10^3/uL (134-434); RBC 4.06 M/mm3 (4.00-5.60); RDW 14.7 % (11.9-15.9); WHITE BLOOD COUNT 7.3 K/mm3 (4.0-10.0)
[2020-10-16 08:21] LABS: CALCIUM 7.9 mg/dL (8.5-10.1)
[2020-10-16 08:22] LABS: BLOOD UREA NITROGEN 7.2 mg/dL (7-18); MAGNESIUM 1.7 mg/dL (1.8-2.4)
[2020-10-16 08:25] LABS: BILIRUBIN,TOTAL 1.7 mg/dL (0.2-1); CREATININE 0.6 mg/dL (0.55-1.3); PHOSPHOROUS 2.4 mg/dL (2.5-4.9); TOT PROT 6.6 g/dl (6.4-8.2)
[2020-10-16] MEDS ORDERED: PT OWN MED DRAWER 7, Y5N ONE ×2 (08:46→10:08)
[2020-10-16] MEDS ORDERED: MAGNESIUM SULF 50% (8.12 MEQ/2 ML-1 GM VIAL) IVPB ONE (08:59)
[2020-10-16] MEDS ORDERED: SODIUM PHOSPHATE - 15 MM in SODIUM CHLORIDE 250 ML IVPB ONE (08:59)
[2020-10-16] MEDS: PANTOPRAZOLE 40 MG TABLET PO SCH (10:02)
[2020-10-16] MEDS: THIAMINE HCL 200 MG/2 ML VIAL IVPB SCH (10:02)
[2020-10-16] MEDS: MULTIVIT INJ. ADULT COMBO WITH VIT K 1 COMBO 10 ML VIAL IV SCH (12:42)
[2020-10-16] MEDS ORDERED: cefTRIAXone SODIUM 1 GM VIAL ONE (20:45)
[2020-10-16] MEDS ORDERED: DEXTROSE 5%-WATER - 50 ML IVPB ONE (20:46)
[2020-10-16] MEDS: CEFTRIAXONE 1 GM in DEXTROSE 5%-WATER - 50 ML IVPB SCH (21:07)
[2020-10-17] MEDS: MORPHINE SULFATE 2 MG/ML VIAL IVPUSH PRN (01:06)
[2020-10-17] MEDS ORDERED: LORazepam 1 MG TABLET PO SCH (05:00)
[2020-10-17] MEDS: LORazepam 1 MG TABLET PO SCH ×4 (05:13→22:09)
[2020-10-17 07:57] LABS: BASO % 0.5 % (0-2.0); EOS % 4.6 % (0-4.5); HEMATOCRIT 40.3 % (35.4-49); HEMOGLOBIN 14.1 GM/dL (11.7-16.9); LYMPH % 22.6 % (8-40); MCH 32.9 pg (25.7-33.7); MCHC 34.9 g/dl (32.0-35.9); MEAN CELL VOLUME 94.3 fl (80-96); MEAN PLT VOLUME 7.7 fl (7.5-11.1); MONO % 6.5 % (3.8-10.2); NEUT % 65.8 % (42.8-82.8); PLATELET COUNT 229 10^3/uL (134-434); RBC 4.28 M/mm3 (4.00-5.60); RDW 14.7 % (11.9-15.9); WHITE BLOOD COUNT 6.2 K/mm3 (4.0-10.0)
[2020-10-17 08:10] LABS: CALCIUM 8.3 mg/dL (8.5-10.1)
[2020-10-17 08:11] LABS: BLOOD UREA NITROGEN 5.9 mg/dL (7-18); MAGNESIUM 2.1 mg/dL (1.8-2.4)
[2020-10-17 08:13] LABS: CREATININE 0.6 mg/dL (0.55-1.3); PHOSPHOROUS 3.4 mg/dL (2.5-4.9)
[2020-10-17 08:14] LABS: BILIRUBIN,TOTAL 1.3 mg/dL (0.2-1)
[2020-10-17 08:17] LABS: TOT PROT 6.9 g/dl (6.4-8.2)
[2020-10-17] MEDS: THIAMINE HCL 200 MG/2 ML VIAL IVPB SCH (09:05)
[2020-10-17] MEDS: KCL 10 MEQ IVPB 10 MEQ/100 ML INFUS.BAG IVPB SCH ×3 (09:06→13:04)
[2020-10-17] MEDS: PANTOPRAZOLE 40 MG TABLET PO SCH (09:06)
[2020-10-17] MEDS ORDERED: PT OWN MED DRAWER 7, Y5N ONE (10:35)
[2020-10-17] MEDS: MULTIVIT INJ. ADULT COMBO WITH VIT K 1 COMBO 10 ML VIAL IV SCH (11:29)
[2020-10-17] MEDS: SODIUM CHLORIDE 1,000 ML IV SCH (17:19)
[2020-10-17] MEDS ORDERED: cefTRIAXone SODIUM 1 GM VIAL ONE (20:39)
[2020-10-17] MEDS ORDERED: DEXTROSE 5%-WATER - 50 ML IVPB ONE (20:39)
[2020-10-17 21:06] VITALS: BMI 29.0
[2020-10-17] MEDS: CEFTRIAXONE 1 GM in DEXTROSE 5%-WATER - 50 ML IVPB SCH (21:13)
[2020-10-18] MEDS ORDERED: LORazepam 0.5 MG TABLET PO PRN ×2
[2020-10-18] MEDS ORDERED: LORazepam 0.5 MG TABLET PO SCH (05:00)
[2020-10-18] MEDS: LORazepam 0.5 MG TABLET PO SCH ×2 (05:51→11:01)
[2020-10-18] MEDS: SODIUM CHLORIDE 1,000 ML IV SCH (06:37)
[2020-10-18 07:34] LABS: BASO % 0.4 % (0-2.0); EOS % 3.9 % (0-4.5); HEMATOCRIT 41.5 % (35.4-49); HEMOGLOBIN 14.5 GM/dL (11.7-16.9); MCH 32.7 pg (25.7-33.7); MCHC 34.9 g/dl (32.0-35.9); MEAN CELL VOLUME 93.9 fl (80-96); MEAN PLT VOLUME 7.8 fl (7.5-11.1); NEUT % 69.7 % (42.8-82.8); PLATELET COUNT 188 10^3/uL (134-434); RBC 4.42 M/mm3 (4.00-5.60); RDW 14.5 % (11.9-15.9); WHITE BLOOD COUNT 7.6 K/mm3 (4.0-10.0)
[2020-10-18 07:45] LABS: CALCIUM 8.6 mg/dL (8.5-10.1)
[2020-10-18 07:46] LABS: ALBUMIN 3.2 g/dl (3.4-5.0); BLOOD UREA NITROGEN 5.3 mg/dL (7-18); MAGNESIUM 2.1 mg/dL (1.8-2.4)
[2020-10-18 07:49] LABS: CREATININE 0.6 mg/dL (0.55-1.3); PHOSPHOROUS 4.1 mg/dL (2.5-4.9)
[2020-10-18 07:50] LABS: TOT PROT 7.2 g/dl (6.4-8.2)
[2020-10-18] MEDS ORDERED: KCL 10 MEQ IVPB 10 MEQ/100 ML INFUS.BAG IVPB SCH (09:15)
[2020-10-18] MEDS: PANTOPRAZOLE 40 MG TABLET PO SCH (09:48)
[2020-10-18] MEDS: THIAMINE HCL 200 MG/2 ML VIAL IVPB SCH (09:48)
[2020-10-18] MEDS: KCL 10 MEQ IVPB 10 MEQ/100 ML INFUS.BAG IVPB SCH ×3 (09:48→12:17)
[2020-10-18] MEDS ORDERED: POTASSIUM CHLORIDE TABS 20 MEQ TABLET.ER (FP) PO ONE ×2 (10:00→14:00)
[2020-10-18] MEDS: MULTIVIT INJ. ADULT COMBO WITH VIT K 1 COMBO 10 ML VIAL IV SCH (11:00)
[2020-10-18 14:34] VITALS: BP 123/77; PULSE 87; TEMP 98.6
[2020-10-19] MEDS ORDERED: LORazepam 0.5 MG TABLET PO ONE ×2 (05:00)
== END 2020-10-18 16:12 | disposition home or self-care (01) | DRG 280 ==
LOC: JER 23:53 → JERBED 10-15 03:32 → J4W 10-15 12:36
PROVIDERS: ADMIT Internal Medicine; ATTEND Internal Medicine
PROC: HZ2ZZZZ Detoxification Services for Substance Abuse Treatment (ICD-10-PCS; 2020-10-15)
PROC: 0DJ08ZZ Inspection of Upper Intestinal Tract, Via Natural or Artificial Opening Endoscopic (ICD-10-PCS; principal; 2020-10-15 13:00)
DX: K70.10 Alcoholic hepatitis without ascites (principal); K92.2 Gastrointestinal hemorrhage, unspecified; R51.9 Headache, unspecified; J45.909 Unspecified asthma, uncomplicated; R10.12 Left upper quadrant pain; R10.11 Right upper quadrant pain; K44.9 Diaphragmatic hernia without obstruction or gangrene; D73.5 Infarction of spleen; I82.890 Acute embolism and thrombosis of other specified veins; K92.0 Hematemesis; E87.2 Acidosis; F10.20 Alcohol dependence, uncomplicated; Y90.8 Blood alcohol level of 240 mg/100 ml or more; K21.9 Gastro-esophageal reflux disease without esophagitis; K76.6 Portal hypertension; K31.89 Other diseases of stomach and duodenum; K76.0 Fatty (change of) liver, not elsewhere classified; E87.6 Hypokalemia; E83.42 Hypomagnesemia; I82.891 Chronic embolism and thrombosis of other specified veins; E83.39 Other disorders of phosphorus metabolism; R94.5 Abnormal results of liver function studies; K20.90 Esophagitis, unspecified without bleeding
CPT/HCPCS: 36415; 71045-TC-FY; 71046-TC-FY; 74177-TC; 80053; 80307; 82248; 82550; 82553; 83605; 83690; 83735; 84100; 84484; 85025; 85027; 85610; 85730; 86850; 86900; 86901; 86922; 93005; 93010; 94761; 99285-25; C9803; J0131; U0003; U0005

== ENCOUNTER 2020-11-09 22:34 | Emergency (ER) | payer OTHER ==
[2020-11-09 22:41] VITALS: BMI 29.0
[2020-11-09] MEDS ORDERED: SODIUM CHLORIDE 1,000 ML IV STA (23:22)
[2020-11-09] MEDS ORDERED: FAMOTIDINE 20 MG/50 ML IVPB 20 MG/50 ML MG IVPB ONE ×2 (23:23→23:28)
[2020-11-09] MEDS ORDERED: MAG HYDROX/AL HYDROX/SIMETH -MYLANTA- ORAL SUSPENSION PO ONE (23:23)
[2020-11-09] MEDS ORDERED: MAG HYDROX/AL HYDROX/SIMETH 30 ML UNIT-DOSE CUP ONE (23:28)
[2020-11-09] MEDS ORDERED: ONDANSETRON 4 MG/2 ML VIAL ONE (23:29)
[2020-11-09] MEDS ORDERED: FOLIC ACID INJECTION - 1 MG, THIAMINE HCL 100 MG, MULTIVIT INJECTION ADULT 10 ML in SOD... IVPB ONE (23:30)
[2020-11-09] MEDS ORDERED: ONDANSETRON 4 MG/2 ML VIAL IVPUSH ONE (23:30)
[2020-11-09 23:55] LABS: BASO % 0.9 % (0-2.0); HEMOGLOBIN 16.9 GM/dL (11.7-16.9); LYMPH % 30.8 % (8-40); MCH 32.9 pg (25.7-33.7); MCHC 35.1 g/dl (32.0-35.9); MEAN CELL VOLUME 93.8 fl (80-96); MEAN PLT VOLUME 6.5 fl (7.5-11.1); MONO % 10.3 % (3.8-10.2); PLATELET COUNT 371 10^3/uL (134-434); RBC 5.12 M/mm3 (4.00-5.60); RDW 14.6 % (11.9-15.9); WHITE BLOOD COUNT 7.8 K/mm3 (4.0-10.0)
[2020-11-10 00:14] LABS: CHLORIDE 96 mmol/L (98-107); SODIUM 138 mmol/L (136-145)
[2020-11-10 00:16] LABS: ALBUMIN 4.3 g/dl (3.4-5.0); ANION GAP 15 MMOL/L (8-16); BLOOD UREA NITROGEN 7.2 mg/dL (7-18); CO2 27 mmol/L (21-32); GLUCOSE,RANDOM 102 mg/dL (74-106)
[2020-11-10 00:19] LABS: CREATININE 0.8 mg/dL (0.55-1.3); SGOT/AST 72 U/L (15-37); SGPT/ALT 37 U/L (13-61)
[2020-11-10 00:21] LABS: BILIRUBIN,TOTAL 0.9 mg/dL (0.2-1)
[2020-11-10 00:22] LABS: ALK PHOS 156 U/L (45-117)
[2020-11-10] MEDS ORDERED: POTASSIUM CHLORIDE ORAL LIQUID 20 MEQ/15 ML PO ONE (01:38)
[2020-11-10 02:00] LABS: MAGNESIUM 2.7 mg/dL (1.8-2.4)
[2020-11-10 02:04] LABS: PHOSPHOROUS 3.8 mg/dL (2.5-4.9)
[2020-11-10 06:22] VITALS: BP 152/71; PULSE 84; TEMP 98.5
== END 2020-11-10 06:22 | disposition home or self-care (01) ==
LOC: JER 22:34
PROC: 3E033GC Introduction of Other Therapeutic Substance into Peripheral Vein, Percutaneous Approach (ICD-10-PCS; principal; 2020-11-09)
PROC: 3E033GC Introduction of Other Therapeutic Substance into Peripheral Vein, Percutaneous Approach (ICD-10-PCS; 2020-11-09)
PROC: 3E033GC Introduction of Other Therapeutic Substance into Peripheral Vein, Percutaneous Approach (ICD-10-PCS; 2020-11-09)
PROC: 3E0337Z Introduction of Electrolytic and Water Balance Substance into Peripheral Vein, Percutaneous Approach (ICD-10-PCS; 2020-11-09)
DX: R10.13 Epigastric pain (principal)
CPT/HCPCS: 36415; 74177-TC; 80053; 82550; 82553; 83690; 83735; 84100; 84484; 85025; 93005; 93010; 99285-25; Q9967

== ENCOUNTER 2020-11-10 09:17 | Inpatient (IN) | payer OTHER ==
[2020-11-10 12:30] VITALS: BMI 26.4
[2020-11-10] MEDS ORDERED: IBUPROFEN 400 MG TABLET (FP) PO PRN (17:52)
[2020-11-10] MEDS ORDERED: BISMUTH SUBSALICYLATE 524 MG/30 ML PO PRN (17:52)
[2020-11-10] MEDS ORDERED: MAG HYDROX/AL HYDROX/SIMETH 30 ML UNIT-DOSE CUP PO PRN (17:52)
[2020-11-10] MEDS ORDERED: METHOCARBAMOL 500 MG TABLET PO PRN (17:52)
[2020-11-10] MEDS ORDERED: NICOTINE 10 MG CARTRIDGE (INHALER) IH PRN (17:52)
[2020-11-10] MEDS ORDERED: MAGNESIUM HYDROX 2400MG/30ML ORAL SUSPENSION 30 ML CUP PO PRN (17:52)
[2020-11-10] MEDS ORDERED: ACETAMINOPHEN 325 MG TABLET (FP) PO PRN ×2 (17:52)
[2020-11-10] MEDS ORDERED: MENTHOL/PHENOL 1 EACH UD MM PRN (17:52)
[2020-11-10] MEDS ORDERED: ONDANSETRON *ODT* 4 MG TABLET SL PRN (17:52)
[2020-11-10] MEDS ORDERED: MAGNESIUM CITRATE 300 ML BOTTLE PO PRN (17:52)
[2020-11-10] MEDS: diazePAM 5 MG TABLET PO SCH (22:29)
[2020-11-10] MEDS: MELATONIN 5 MG TABLETS PO SCH (22:30)
[2020-11-10] MEDS: THIAMINE HCL 100 MG TABLET (FP) PO SCH (22:30)
[2020-11-10] MEDS: hydrOXYzine PAMOATE 25 MG CAPSULE (FP) PO SCH ×2 (22:31→22:34)
[2020-11-11] MEDS: diazePAM 5 MG TABLET PO SCH ×4 (05:48→22:29)
[2020-11-11] MEDS: hydrOXYzine PAMOATE 25 MG CAPSULE (FP) PO SCH ×2 (05:49→10:42)
[2020-11-11] MEDS: PRENATAL VITAMINS W/ FOLIC ACID TABLET (FP) PO SCH (10:42)
[2020-11-11] MEDS: THIAMINE HCL 100 MG TABLET (FP) PO SCH (22:29)
[2020-11-11] MEDS: MELATONIN 5 MG TABLETS PO SCH (22:29)
[2020-11-12] MEDS: diazePAM 5 MG TABLET PO SCH ×3 (05:24→22:24)
[2020-11-12] MEDS: PRENATAL VITAMINS W/ FOLIC ACID TABLET (FP) PO SCH (10:17)
[2020-11-12] MEDS: diazePAM 5 MG TABLET PO PRN (10:17)
[2020-11-12 14:59] LABS: HEMATOCRIT 43.5 % (35.4-49); HEMOGLOBIN 15.2 GM/dL (11.7-16.9); MCH 33.6 pg (25.7-33.7); MCHC 34.9 g/dl (32.0-35.9); MEAN CELL VOLUME 96.3 fl (80-96); MEAN PLT VOLUME 7.7 fl (7.5-11.1); PLATELET COUNT 236 10^3/uL (134-434); RBC 4.52 M/mm3 (4.00-5.60); RDW 14.5 % (11.9-15.9); WHITE BLOOD COUNT 6.9 K/mm3 (4.0-10.0)
[2020-11-12 15:04] LABS: BLOOD UREA NITROGEN 9.2 mg/dL (7-18); CALCIUM 8.9 mg/dL (8.5-10.1)
[2020-11-12 15:05] LABS: ALBUMIN 3.6 g/dl (3.4-5.0)
[2020-11-12 15:08] LABS: CREATININE 0.8 mg/dL (0.55-1.3)
[2020-11-12 15:09] LABS: BILIRUBIN,TOTAL 1.1 mg/dL (0.2-1); TOT PROT 7.4 g/dl (6.4-8.2)
[2020-11-12] MEDS: THIAMINE HCL 100 MG TABLET (FP) PO SCH (22:24)
[2020-11-12] MEDS: MELATONIN 5 MG TABLETS PO SCH (22:24)
[2020-11-13] MEDS: diazePAM 5 MG TABLET PO SCH ×2 (06:08→17:12)
[2020-11-13] MEDS: PRENATAL VITAMINS W/ FOLIC ACID TABLET (FP) PO SCH (10:40)
[2020-11-13] MEDS: diazePAM 5 MG TABLET PO PRN (10:41)
[2020-11-13] MEDS: THIAMINE HCL 100 MG TABLET (FP) PO SCH (22:35)
[2020-11-13] MEDS: MELATONIN 5 MG TABLETS PO SCH (22:35)
[2020-11-14] MEDS ORDERED: diazePAM 5 MG TABLET PO ONE (06:00)
[2020-11-14 09:34] VITALS: BP 127/79; PULSE 90; TEMP 97.3
[2020-11-14] MEDS: PRENATAL VITAMINS W/ FOLIC ACID TABLET (FP) PO SCH (10:10)
== END 2020-11-14 10:34 | disposition home or self-care (01) | DRG 775 ==
LOC: YASAS 09:17 → Y3N 21:37
PROVIDERS: ADMIT Allergy & Immunology; ATTEND Allergy & Immunology
PROC: HZ2ZZZZ Detoxification Services for Substance Abuse Treatment (ICD-10-PCS; principal; 2020-11-10)
DX: F10.230 Alcohol dependence with withdrawal, uncomplicated (principal); F17.213 Nicotine dependence, cigarettes, with withdrawal; F41.1 Generalized anxiety disorder; K29.20 Alcoholic gastritis without bleeding; K86.0 Alcohol-induced chronic pancreatitis; R94.5 Abnormal results of liver function studies; R74.01 Elevation of levels of liver transaminase levels
CPT/HCPCS: 36415; 80053; 85027; 86780; C9803; U0003; U0005

== ENCOUNTER 2021-01-22 14:27 | Emergency (ER) | payer OTHER ==
[2021-01-22 14:34] VITALS: TEMP 98.2; BMI 32.3
[2021-01-22] MEDS ORDERED: ONDANSETRON 4 MG/2 ML VIAL IVPUSH ONE (15:01)
[2021-01-22] MEDS ORDERED: SODIUM CHLORIDE 0.9% 500 ML INFUS.BAG IV ONE ×2 (15:01→15:02)
[2021-01-22] MEDS ORDERED: LORazepam 2 MG/ML SDV VIAL IVPUSH ONE (15:02)
[2021-01-22] MEDS ORDERED: LORazepam 2 MG/ML SDV VIAL ONE (15:18)
[2021-01-22] MEDS ORDERED: ONDANSETRON 4 MG/2 ML VIAL ONE (15:18)
[2021-01-22 16:25] LABS: BASO % 0.3 % (0-2.0); EOS % 0.9 % (0-4.5); HEMATOCRIT 46.9 % (35.4-49); HEMOGLOBIN 16.8 GM/dL (11.7-16.9); MCH 33.2 pg (25.7-33.7); MCHC 35.9 g/dl (32.0-35.9); MEAN CELL VOLUME 92.4 fl (80-96); MEAN PLT VOLUME 7.3 fl (7.5-11.1); MONO % 9.2 % (3.8-10.2); NEUT % 75.6 % (42.8-82.8); PLATELET COUNT 190 10^3/uL (134-434); RBC 5.08 M/mm3 (4.00-5.60); RDW 13.7 % (11.9-15.9); WHITE BLOOD COUNT 6.5 K/mm3 (4.0-10.0)
[2021-01-22 16:51] LABS: ALBUMIN 3.6 g/dl (3.4-5.0); CALCIUM 8.8 mg/dL (8.5-10.1)
[2021-01-22 16:52] LABS: BLOOD UREA NITROGEN 12.4 mg/dL (7-18)
[2021-01-22 16:53] LABS: MAGNESIUM 2.2 mg/dL (1.8-2.4)
[2021-01-22 16:55] LABS: BILIRUBIN,TOTAL 2.5 mg/dL (0.2-1); CREATININE 0.7 mg/dL (0.55-1.3); TOT PROT 8.5 g/dl (6.4-8.2)
[2021-01-22 17:22] LABS: EPI CELLS 7 /uL (0-25.1); HYALINE CASTS 3 /uL (0-3.1); PH,URINE 6.5 (5.0-8.0); URINE APPEARANCE CLEAR; URINE BILIRUBIN 1+ (NEGATIVE); URINE COLOR ORANGE; URINE GLUCOSE (UA) NEGATIVE (NEGATIVE); URINE KETONE 2+ (NEGATIVE); URINE LEUK ESTERASE NEGATIVE (NEGATIVE); URINE NITRITE POSITIVE (NEGATIVE); URINE PROTEIN 2+ (NEGATIVE); URINE RBC 10 /uL (0-23.9); URINE WBC 5 /uL (0-25.8)
[2021-01-22] MEDS ORDERED: FAMOTIDINE 20 MG/50 ML IVPB 20 MG/50 ML MG IVPB ONE ×2 (18:52→19:24)
[2021-01-22] MEDS ORDERED: MAG HYDROX/AL HYDROX/SIMETH 30 ML UNIT-DOSE CUP PO ONE (19:42)
[2021-01-22] MEDS ORDERED: MAG HYDROX/AL HYDROX/SIMETH 30 ML UNIT-DOSE CUP ONE (19:46)
[2021-01-22 20:22] VITALS: BP 138/98; PULSE 83
[2021-01-22 22:39] LABS: URINE BACTERIA 24 /uL (0-1359)
== END 2021-01-22 20:26 | disposition home or self-care (01) ==
LOC: JER 14:27
PROC: 3E033GC Introduction of Other Therapeutic Substance into Peripheral Vein, Percutaneous Approach (ICD-10-PCS; principal; 2021-01-22)
PROC: 3E033NZ Introduction of Analgesics, Hypnotics, Sedatives into Peripheral Vein, Percutaneous Approach (ICD-10-PCS; 2021-01-22)
PROC: 3E033GC Introduction of Other Therapeutic Substance into Peripheral Vein, Percutaneous Approach (ICD-10-PCS; 2021-01-22)
DX: R11.10 Vomiting, unspecified (principal); R19.7 Diarrhea, unspecified
CPT/HCPCS: 36415; 80053; 81003; 83690; 83735; 85025; 87086; 99284-25; C9803; U0003; U0005

== ENCOUNTER 2021-02-28 06:58 | Emergency (ER) | payer OTHER ==
[2021-02-28 07:27] VITALS: BMI 27.4
[2021-02-28] MEDS ORDERED: MAG HYDROX/AL HYDROX/SIMETH -MYLANTA- ORAL SUSPENSION PO ONE (07:40)
[2021-02-28] MEDS ORDERED: SODIUM CHLORIDE 1,000 ML IV STA (07:40)
[2021-02-28] MEDS ORDERED: FAMOTIDINE 20 MG/50 ML IVPB 20 MG/50 ML MG IVPB ONE (07:40)
[2021-02-28] MEDS ORDERED: ACETAMINOPHEN 1000 MG/100 ML VIAL IVPB ONE (07:50)
[2021-02-28] MEDS ORDERED: MAG HYDROX/AL HYDROX/SIMETH 30 ML UNIT-DOSE CUP ONE (07:54)
[2021-02-28] MEDS ORDERED: FAMOTIDINE/PF 20 MG/2 ML VIAL ONE (07:55)
[2021-02-28] MEDS ORDERED: ACETAMINOPHEN INJECTION 100 ML IVPB ONE (08:59)
[2021-02-28 09:01] LABS: BASO % 0.4 % (0-2.0); HEMATOCRIT 51.9 % (35.4-49); HEMOGLOBIN 18.1 GM/dL (11.7-16.9); LYMPH % 14.5 % (8-40); MCH 32.5 pg (25.7-33.7); MCHC 34.9 g/dl (32.0-35.9); MEAN CELL VOLUME 93.1 fl (80-96); MEAN PLT VOLUME 6.8 fl (7.5-11.1); MONO % 12.9 % (3.8-10.2); NEUT % 72.2 % (42.8-82.8); PLATELET COUNT 366 10^3/uL (134-434); RBC 5.58 M/mm3 (4.00-5.60); RDW 13.8 % (11.9-15.9); WHITE BLOOD COUNT 8.1 K/mm3 (4.0-10.0)
[2021-02-28 09:04] LABS: EPI CELLS 15 /uL (0-25.1); HYALINE CASTS 41 /uL (0-3.1); URINE APPEARANCE CLEAR; URINE BACTERIA 54 /uL (0-1359); URINE BILIRUBIN 1+ (NEGATIVE); URINE COLOR DK YELLOW; URINE GLUCOSE (UA) NEGATIVE (NEGATIVE); URINE KETONE NEGATIVE (NEGATIVE); URINE LEUK ESTERASE NEGATIVE (NEGATIVE); URINE NITRITE NEGATIVE (NEGATIVE); URINE PROTEIN 4+ (NEGATIVE); URINE RBC 9 /uL (0-23.9); URINE WBC 25 /uL (0-25.8)
[2021-02-28 09:19] LABS: CHLORIDE 90 mmol/L (98-107); SODIUM 138 mmol/L (136-145)
[2021-02-28 09:22] LABS: ALBUMIN 4.3 g/dl (3.4-5.0); ANION GAP 18 MMOL/L (8-16); BLOOD UREA NITROGEN 24.8 mg/dL (7-18); CALCIUM 8.9 mg/dL (8.5-10.1); CO2 30 mmol/L (21-32); GLUCOSE,RANDOM 139 mg/dL (74-106); LIPASE 272 U/L (73-393)
[2021-02-28 09:25] LABS: SGOT/AST 50 U/L (15-37); SGPT/ALT 31 U/L (13-61)
[2021-02-28 09:26] LABS: BILIRUBIN,TOTAL 1.7 mg/dL (0.2-1)
[2021-02-28 09:27] LABS: TOT PROT 9.3 g/dl (6.4-8.2)
[2021-02-28 09:28] LABS: ALK PHOS 132 U/L (45-117)
[2021-02-28] MEDS ORDERED: morphine CARPU-JECT 4 MG/1 ML DISP.SYRIN IVPUSH ONE (11:15)
[2021-02-28] MEDS ORDERED: morphine SULFATE 4 MG/ML VIAL ONE (11:30)
[2021-02-28 13:34] VITALS: BP 136/74; PULSE 70; TEMP 98.4
== END 2021-02-28 13:30 | disposition home or self-care (01) ==
LOC: JER 06:58
PROC: 3E033GC Introduction of Other Therapeutic Substance into Peripheral Vein, Percutaneous Approach (ICD-10-PCS; principal; 2021-02-28)
DX: R10.13 Epigastric pain (principal); R11.2 Nausea with vomiting, unspecified; E87.6 Hypokalemia; K44.9 Diaphragmatic hernia without obstruction or gangrene; R16.0 Hepatomegaly, not elsewhere classified
CPT/HCPCS: 36415; 71045-TC-FY; 74177-TC; 80053; 81003; 82550; 82553; 83690; 83735; 84484; 85025; 87086; 93005; 93010; 99285-25; C9803; J0131; Q9967; U0003; U0005

== ENCOUNTER 2021-02-28 14:41 | Inpatient (IN) | payer OTHER ==
[2021-02-28] MEDS ORDERED: MAGNESIUM HYDROX 2400MG/30ML ORAL SUSPENSION 30 ML CUP PO PRN (15:42)
[2021-02-28] MEDS ORDERED: IBUPROFEN 400 MG TABLET (FP) PO PRN (15:42)
[2021-02-28] MEDS ORDERED: LORazepam 1 MG TABLET PO PRN (15:42)
[2021-02-28] MEDS ORDERED: MAG HYDROX/AL HYDROX/SIMETH 30 ML UNIT-DOSE CUP PO PRN (15:42)
[2021-02-28] MEDS ORDERED: MENTHOL/PHENOL 1 EACH UD MM PRN (15:42)
[2021-02-28] MEDS ORDERED: BISMUTH SUBSALICYLATE 524 MG/30 ML PO PRN (15:42)
[2021-02-28] MEDS ORDERED: NICOTINE 10 MG CARTRIDGE (INHALER) IH PRN (15:42)
[2021-02-28] MEDS ORDERED: MAGNESIUM CITRATE 300 ML BOTTLE PO PRN (15:42)
[2021-02-28] MEDS ORDERED: ACETAMINOPHEN 325 MG TABLET (FP) PO PRN ×2 (15:42)
[2021-02-28] MEDS ORDERED: ONDANSETRON *ODT* 4 MG TABLET SL PRN (15:42)
[2021-02-28 18:10] VITALS: BMI 29.2
[2021-02-28] MEDS: PRENATAL VITAMINS W/ FOLIC ACID TABLET (FP) PO SCH (18:40)
[2021-02-28] MEDS: NICOTINE 14 MG/24 HOURS TOPICAL PATCH TD SCH (18:40)
[2021-02-28] MEDS: hydrOXYzine PAMOATE 25 MG CAPSULE (FP) PO SCH ×2 (18:41→22:11)
[2021-02-28] MEDS: LORazepam 2 MG TABLET PO SCH ×2 (18:41→22:11)
[2021-02-28] MEDS: METHOCARBAMOL 500 MG TABLET PO PRN (18:42)
[2021-02-28] MEDS: THIAMINE HCL 100 MG TABLET (FP) PO SCH (22:11)
[2021-02-28] MEDS: MELATONIN 5 MG TABLETS PO SCH (22:11)
[2021-03-01] MEDS: LORazepam 2 MG TABLET PO SCH ×4 (06:53→22:14)
[2021-03-01] MEDS: hydrOXYzine PAMOATE 25 MG CAPSULE (FP) PO SCH ×5 (06:53→22:14)
[2021-03-01] MEDS: PRENATAL VITAMINS W/ FOLIC ACID TABLET (FP) PO SCH (10:20)
[2021-03-01] MEDS: NICOTINE 14 MG/24 HOURS TOPICAL PATCH TD SCH (10:21)
[2021-03-01] MEDS ORDERED: POTASSIUM CHLORIDE ORAL LIQUID 20 MEQ/15 ML PO ONE (16:52)
[2021-03-01] MEDS: POTASSIUM CHLORIDE ORAL LIQUID 20 MEQ/15 ML PO SCH (22:13)
[2021-03-01] MEDS: THIAMINE HCL 100 MG TABLET (FP) PO SCH (22:14)
[2021-03-01] MEDS: MELATONIN 5 MG TABLETS PO SCH (22:14)
[2021-03-01] MEDS: METHOCARBAMOL 500 MG TABLET PO PRN (22:14)
[2021-03-02] MEDS: hydrOXYzine PAMOATE 25 MG CAPSULE (FP) PO SCH ×5 (06:19→22:18)
[2021-03-02] MEDS: LORazepam 1 MG TABLET PO SCH ×4 (06:19→22:18)
[2021-03-02] MEDS: PRENATAL VITAMINS W/ FOLIC ACID TABLET (FP) PO SCH (10:42)
[2021-03-02] MEDS: POTASSIUM CHLORIDE ORAL LIQUID 20 MEQ/15 ML PO SCH ×2 (10:43→22:18)
[2021-03-02] MEDS: NICOTINE 14 MG/24 HOURS TOPICAL PATCH TD SCH (10:43)
[2021-03-02] MEDS: METHOCARBAMOL 500 MG TABLET PO PRN ×2 (10:43→22:19)
[2021-03-02 12:17] LABS: CALCIUM 8.5 mg/dL (8.5-10.1)
[2021-03-02 12:19] LABS: BLOOD UREA NITROGEN 11.9 mg/dL (7-18)
[2021-03-02 12:22] LABS: CREATININE 0.9 mg/dL (0.55-1.3)
[2021-03-02 12:24] LABS: BILIRUBIN,TOTAL 1.6 mg/dL (0.2-1); TOT PROT 7.4 g/dl (6.4-8.2)
[2021-03-02 12:25] LABS: ALBUMIN 3.3 g/dl (3.4-5.0)
[2021-03-02 12:26] LABS: HEMATOCRIT 43.4 % (35.4-49); HEMOGLOBIN 15.2 GM/dL (11.7-16.9); MCH 33.1 pg (25.7-33.7); MEAN CELL VOLUME 94.4 fl (80-96); MEAN PLT VOLUME 7.6 fl (7.5-11.1); PLATELET COUNT 222 10^3/uL (134-434); RDW 13.7 % (11.9-15.9); WHITE BLOOD COUNT 6.8 K/mm3 (4.0-10.0)
[2021-03-02] MEDS: THIAMINE HCL 100 MG TABLET (FP) PO SCH (22:18)
[2021-03-02] MEDS: MELATONIN 5 MG TABLETS PO SCH (22:18)
[2021-03-03] MEDS ORDERED: LORazepam 0.5 MG TABLET PO PRN
[2021-03-03] MEDS: hydrOXYzine PAMOATE 25 MG CAPSULE (FP) PO SCH ×5 (06:02→22:11)
[2021-03-03] MEDS: LORazepam 0.5 MG TABLET PO SCH ×4 (06:03→22:11)
[2021-03-03] MEDS: PRENATAL VITAMINS W/ FOLIC ACID TABLET (FP) PO SCH (10:33)
[2021-03-03] MEDS: NICOTINE 14 MG/24 HOURS TOPICAL PATCH TD SCH (10:35)
[2021-03-03] MEDS: THIAMINE HCL 100 MG TABLET (FP) PO SCH (22:11)
[2021-03-03] MEDS: MELATONIN 5 MG TABLETS PO SCH (22:11)
[2021-03-04] MEDS ORDERED: LORazepam 0.5 MG TABLET PO ONE (05:00)
[2021-03-04] MEDS: hydrOXYzine PAMOATE 25 MG CAPSULE (FP) PO SCH ×2 (05:57→10:08)
[2021-03-04 08:35] VITALS: TEMP 97.3
[2021-03-04 09:30] VITALS: BP 152/91; PULSE 83
[2021-03-04] MEDS: PRENATAL VITAMINS W/ FOLIC ACID TABLET (FP) PO SCH (10:08)
[2021-03-04] MEDS: NICOTINE 14 MG/24 HOURS TOPICAL PATCH TD SCH (10:08)
== END 2021-03-04 10:55 | disposition home or self-care (01) | DRG 774 ==
LOC: YASAS 14:41 → Y3N 17:47
PROVIDERS: ADMIT Allergy & Immunology; ATTEND Allergy & Immunology
PROC: HZ2ZZZZ Detoxification Services for Substance Abuse Treatment (ICD-10-PCS; principal; 2021-02-28)
DX: F10.230 Alcohol dependence with withdrawal, uncomplicated (principal); F14.20 Cocaine dependence, uncomplicated; F17.210 Nicotine dependence, cigarettes, uncomplicated; I10 Essential (primary) hypertension; J45.909 Unspecified asthma, uncomplicated; R94.5 Abnormal results of liver function studies; E87.6 Hypokalemia; K70.9 Alcoholic liver disease, unspecified; Z86.718 Personal history of other venous thrombosis and embolism; Z56.0 Unemployment, unspecified
CPT/HCPCS: 36415; 80053; 84132; 85027; 86780; C9803; Q0162; U0003; U0005

== ENCOUNTER 2021-03-22 00:55 | Emergency (ER) | payer OTHER ==
[2021-03-22 01:06] VITALS: BMI 26.6
[2021-03-22] MEDS ORDERED: PANTOPRAZOLE SODIUM 40 MG VIAL IVPUSH ONE (01:34)
[2021-03-22] MEDS ORDERED: ONDANSETRON 4 MG/2 ML VIAL ONE (02:06)
[2021-03-22] MEDS ORDERED: PANTOPRAZOLE SODIUM 40 MG VIAL ONE (02:06)
[2021-03-22] MEDS ORDERED: ONDANSETRON 4 MG/2 ML VIAL IVPUSH ONE (02:07)
[2021-03-22] MEDS ORDERED: LACTATED RINGERS SOLUTION 1000 ML INFUS.BAG IV ONE (02:07)
[2021-03-22 02:45] LABS: INR 0.93 (0.83-1.09); PROTHROMBIN TIME (PATIENT) 10.9 SEC (9.7-13.0)
[2021-03-22 02:48] LABS: ACTIVATED PTT 25.3 SECONDS (25.2-36.5)
[2021-03-22 02:55] LABS: CHLORIDE 96 mmol/L (98-107); SODIUM 139 mmol/L (136-145)
[2021-03-22 02:56] LABS: BASO % 0.3 % (0-2.0); HEMATOCRIT 48.8 % (35.4-49); HEMOGLOBIN 17.2 GM/dL (11.7-16.9); LYMPH % 23.6 % (8-40); MCH 32.8 pg (25.7-33.7); MCHC 35.2 g/dl (32.0-35.9); MEAN CELL VOLUME 93.1 fl (80-96); MEAN PLT VOLUME 6.4 fl (7.5-11.1); MONO % 7.6 % (3.8-10.2); NEUT % 68.5 % (42.8-82.8); PLATELET COUNT 370 10^3/uL (134-434); RBC 5.24 M/mm3 (4.00-5.60); RDW 13.9 % (11.9-15.9)
[2021-03-22 02:57] LABS: CALCIUM 8.8 mg/dL (8.5-10.1); LIPASE 139 U/L (73-393)
[2021-03-22 02:58] LABS: ANION GAP 15 MMOL/L (8-16); BLOOD UREA NITROGEN 16.6 mg/dL (7-18); CO2 28 mmol/L (21-32); GLUCOSE,RANDOM 119 mg/dL (74-106); MAGNESIUM 2.6 mg/dL (1.8-2.4)
[2021-03-22 02:59] LABS: CREATININE 0.8 mg/dL (0.55-1.3); SGOT/AST 48 U/L (15-37); SGPT/ALT 29 U/L (13-61)
[2021-03-22 03:02] LABS: ALK PHOS 129 U/L (45-117); BILIRUBIN,TOTAL 1.2 mg/dL (0.2-1); TOT PROT 8.5 g/dl (6.4-8.2)
[2021-03-22 03:21] LABS: LACTIC ACID 5.1 mmol/L (0.4-2.0)
[2021-03-22] MEDS ORDERED: PIPERACILLIN/TAZOB 4.5 GM 4.5 GM in DEXTROSE 5%-WATER 100 ML IVPB ONE (06:04)
[2021-03-22 08:03] VITALS: BP 134/85; PULSE 96
[2021-03-22 08:05] LABS: EPI CELLS 3 /uL (0-25.1); HYALINE CASTS 3 /uL (0-3.1); URINE APPEARANCE CLEAR; URINE BACTERIA 5 /uL (0-1359); URINE BILIRUBIN NEGATIVE (NEGATIVE); URINE COLOR DK YELLOW; URINE GLUCOSE (UA) NEGATIVE (NEGATIVE); URINE KETONE 1+ (NEGATIVE); URINE LEUK ESTERASE NEGATIVE (NEGATIVE); URINE NITRITE NEGATIVE (NEGATIVE); URINE PROTEIN 4+ (NEGATIVE); URINE RBC 3 /uL (0-23.9); URINE WBC 2 /uL (0-25.8)
[2021-03-22 08:19] VITALS: TEMP 98.6
== END 2021-03-22 08:33 | disposition short-term general hospital (02) ==
LOC: JER 00:55
PROC: 3E033GC Introduction of Other Therapeutic Substance into Peripheral Vein, Percutaneous Approach (ICD-10-PCS; principal; 2021-03-22)
DX: K35.80 Unspecified acute appendicitis (principal); K20.90 Esophagitis, unspecified without bleeding; F10.20 Alcohol dependence, uncomplicated; R11.2 Nausea with vomiting, unspecified
CPT/HCPCS: 36415; 70450-TC; 71045-TC-FY; 71275-TC; 72191-TC; 74175-TC; 80053; 81003; 82272; 82550; 82553; 83605; 83690; 83735; 84484; 85025; 85610; 85730; 87086; 93005; 93010; 99285-25; C9803; Q9967; U0003; U0005

== ENCOUNTER 2021-05-12 08:24 | Inpatient (IN) | payer OTHER ==
[2021-05-12] MEDS: THIAMINE HCL 100 MG TABLET (FP) PO SCH ×2 (00:10→22:37)
[2021-05-12] MEDS: LORazepam 2 MG TABLET PO SCH ×5 (00:10→22:39)
[2021-05-12 01:38] VITALS: BMI 31.2
[~2021-05-12 08:24] MED LIST: BISMUTH SUBSALICYLATE 524 MG/30 ML PO PRN; DICYCLOMINE HCL 10 MG CAPSULE PO PRN; IBUPROFEN 400 MG TABLET (FP) PO PRN; LOPERAMIDE HCL 2 MG CAPSULE PO PRN; LORazepam 1 MG TABLET PO PRN; LORazepam 2 MG TABLET ONE; MAG HYDROX/AL HYDROX/SIMETH 30 ML UNIT-DOSE CUP PO PRN; MAGNESIUM CITRATE 300 ML BOTTLE PO PRN; MAGNESIUM HYDROX 2400MG/30ML ORAL SUSPENSION 30 ML CUP PO PRN; MELATONIN 5 MG TABLETS PO SCH; MENTHOL/PHENOL 1 EACH UD MM PRN; NICOTINE POLACRILEX 2 MG GUM BUC PRN; ONDANSETRON *ODT* 4 MG TABLET SL PRN; P-EPHED 60MG/TRIPROLIDI 2.5MG TABLET PO PRN; guaiFENesin 200 MG/10 ML 10 ML UNIT-DOSE CUPS PO PRN
[2021-05-12] MEDS: PRENATAL VITAMINS W/ FOLIC ACID TABLET (FP) PO SCH (12:00)
[2021-05-12] MEDS ORDERED: LORazepam 1 MG TABLET ONE (12:34)
[2021-05-12] MEDS: NICOTINE 14 MG/24 HOURS TOPICAL PATCH TD SCH (12:36)
[2021-05-12] MEDS: METHOCARBAMOL 500 MG TABLET PO PRN (18:31)
[2021-05-12] MEDS: SUVOREXANT 10 MG TABLET PO PRN (22:40)
[2021-05-13] MEDS: LORazepam 1 MG TABLET PO SCH ×4 (05:45→22:15)
[2021-05-13] MEDS: NICOTINE 14 MG/24 HOURS TOPICAL PATCH TD SCH (10:15)
[2021-05-13] MEDS: PRENATAL VITAMINS W/ FOLIC ACID TABLET (FP) PO SCH (10:15)
[2021-05-13] MEDS: THIAMINE HCL 100 MG TABLET (FP) PO SCH (22:14)
[2021-05-13] MEDS: SUVOREXANT 10 MG TABLET PO PRN (22:15)
[2021-05-13] MEDS: METHOCARBAMOL 500 MG TABLET PO PRN (22:16)
[2021-05-14] MEDS ORDERED: LORazepam 0.5 MG TABLET PO PRN
[2021-05-14] MEDS: LORazepam 0.5 MG TABLET PO SCH ×4 (05:37→22:14)
[2021-05-14 08:10] LABS: SARS-CoV-2 NAA Not Detected (Not Detected)
[2021-05-14] MEDS: PRENATAL VITAMINS W/ FOLIC ACID TABLET (FP) PO SCH (10:28)
[2021-05-14] MEDS: METHOCARBAMOL 500 MG TABLET PO PRN (10:29)
[2021-05-14] MEDS: NICOTINE 14 MG/24 HOURS TOPICAL PATCH TD SCH (10:29)
[2021-05-14] MEDS: THIAMINE HCL 100 MG TABLET (FP) PO SCH (22:14)
[2021-05-14] MEDS: SUVOREXANT 10 MG TABLET PO PRN (22:15)
[2021-05-15] MEDS ORDERED: LORazepam 0.5 MG TABLET PO ONE (05:00)
[2021-05-15] MEDS: PRENATAL VITAMINS W/ FOLIC ACID TABLET (FP) PO SCH (09:50)
[2021-05-15] MEDS: NICOTINE 14 MG/24 HOURS TOPICAL PATCH TD SCH (09:50)
[2021-05-15 09:57] VITALS: BP 132/78; PULSE 76; TEMP 98.4
== END 2021-05-15 10:11 | disposition home or self-care (01) | DRG 775 ==
LOC: YASAS 08:24 → Y6N 12:43
PROVIDERS: ADMIT Allergy & Immunology; ATTEND Allergy & Immunology
PROC: HZ2ZZZZ Detoxification Services for Substance Abuse Treatment (ICD-10-PCS; principal; 2021-05-12)
DX: F10.230 Alcohol dependence with withdrawal, uncomplicated (principal); F17.213 Nicotine dependence, cigarettes, with withdrawal; F10.280 Alcohol dependence with alcohol-induced anxiety disorder; F10.282 Alcohol dependence with alcohol-induced sleep disorder; F10.24 Alcohol dependence with alcohol-induced mood disorder; R16.1 Splenomegaly, not elsewhere classified; K29.20 Alcoholic gastritis without bleeding; K21.9 Gastro-esophageal reflux disease without esophagitis; K70.9 Alcoholic liver disease, unspecified; Z87.19 Personal history of other diseases of the digestive system; Z87.442 Personal history of urinary calculi
CPT/HCPCS: 36415; 71045-TC-FY; 74177-TC; 80053; 81003; 83690; 83735; 84484; 85025; 85610; 85730; 87086; 93005; 93010; 99285-25; C9803; U0003; U0005